=== PATIENT | female | born 1980 | race Caucasian/White ===

== ENCOUNTER → 2017-09-30 14:26 | Outpatient (CLI) | payer MEDICAID, SELFPAY ==
--- NOTE | 2017-09-30 | MM_ITS ---
MM Dig mamm BI DX w/CAD, US breast LT complete COMPARISON: None, baseline INDICATION: Palpable nodule left breast ORDERING PHYSICIAN: Simon Flores MD PATIENT AGE: 37 years TECHNIQUE: Standard images performed along with left breast ultrasound FINDINGS: There is average fibroglandular tissue. There is a 9 mm well-circumscribed nodule in the 1:00 region of the left breast corresponding to the palpable abnormality. In addition, there is a 8mm well circumscribed nodular opacity in the subcutaneous region in the left lateral periareolar region. No sonographic abdomen is detected in this area. This may only be related to overlapping fibroglandular tissue. 3 month follow-up recommended with spot compression views. The right breast is unremarkable. Left breast ultrasound: There is a 9 mm subcutaneous cystic nodule within the 1:00 region of the left breast corresponding to the palpable abnormality. This does have some low-level internal echoes but is well-circumscribed and shows enhanced through transmission of sound consistent with a complex cyst. Probably benign. IMPRESSION: Palpable abnormality at 1:00 corresponds to a complex cyst.. Probable benign asymmetric density retroareolar region laterally BI-RADS Category: 3 Benign Finding Short Term Follow-up RECOMMENDED FOLLOW-UP: 3M - 3 MONTH FOLLOWUP (A letter has been sent to the patient regarding results of the study.)
== END ==
PROVIDERS: Family Provider Internal Medicine Adolescent Medicine; PCP Obstetrics & Gynecology; Visit Provider Internal Medicine Adolescent Medicine
DX: N63.0 Unspecified lump in unspecified breast (principal)
CPT/HCPCS: 76641; 77066

== ENCOUNTER → 2018-02-07 07:50 | Outpatient (CLI) | payer MEDICAID, SELFPAY ==
--- NOTE | 2018-02-07 07:52 | CA_ITS ---
PROCEDURE: 2-D M-mode and color Doppler study INDICATIONS FOR THE TEST: Chest pain + COPD Heart Murmur Tobacco Smoking+ Palpitations Fatigue Syncope+ Edema Hypertension+Diabetes Mellitus Rheumatic Fever SOB+CABRERA Obesity Hyperlipidemia Family History HD Additional History BUBBLE STUDY PATIENT INFORMATION HEIGHT: 63 WEIGHT:186 GENDER: Female B/P:100/65 2-D/M-MODE INTERPRETATION: 2-D MEASUREMENTS OBSERVED VALUES IN CMS Right Ventricular Dimension (RVDd) 2.7 Interventricular Septum (Thickness)(IVsd) 1.1 Left Ventricular Internal Dimensions(LVIDd) 5.2 Left Ventricular Posterior Wall (Thickness)(LVPWd) 0.8 Aortic Root 3.1 Aortic Cusp Separation 2.1 Left Atrial Dimensions (LAD) 4.4 2D 1. Left atrium is mildly enlarged, left ventricle is normal size, there is mild concentric left ventricular hypertrophy, visually estimated ejection fraction 55% with no obvious regional wall motion abnormality. 2. The right atrium is mildly enlarged, right ventricle is mildly dilated with normal contractility. 3. The aortic valve is minimally thickened and fibrosed. 4. The mitral valve leaflets are minimally thickened. 5. The pulmonic valve is poorly visualized. 6. The tricuspid valve is grossly normal. 7. No significant pericardial effusion noted. DOPPLER INTERROGATION: Doppler interrogation of the aortic, mitral and tricuspid valvular presence of moderate to severe mitral and mild tricuspid regurgitation, calculated right ventricular systolic pressure is 47 mmHg consistent with the moderate pulmonary hypertension. Clinically indicated transesophageal echocardiogram is recommended to evaluate mitral valve. Grade 1 diastolic dysfunction seen with tissue Doppler evidence of raised left atrial pressure. CONCLUSION: 1. Biatrial enlargement, normal left ventricular size, mild concentric left ventricular hypertrophy, visually estimated ejection fraction 55% with no obvious regional wall motion abnormality, grade 1 diastolic dysfunction seen with tissue Doppler evidence of raised left atrial pressure. 2. Moderate to severe mitral and mild tricuspid regurgitation, if clinically indicated transesophageal echocardiogram is recommended. Calculated right ventricular systolic pressure is 47 mmHg consistent with moderate pulmonary hypertension. 3. No significant pericardial effusion noted.
== END ==
PROVIDERS: Family Provider Internal Medicine Adolescent Medicine; PCP Internal Medicine Adolescent Medicine; Visit Provider Internal Medicine
DX: R07.9 Chest pain, unspecified (principal)
CPT/HCPCS: 93017; 93306

== ENCOUNTER 2018-05-04 13:06 | Observation (INO) ==
--- NOTE | 2018-05-04 13:30 | Emergency Department Note ---
ED Disposition Clinical Impression: Mitral valve regurgitation, Tobacco use, Reactive airway disease, Acute renal insufficiency, Dehydration, Nausea vomiting and diarrhea, Medication side effect, Elevated d-dimer Disposition: Still a Patient Condition on Discharge: Fair Referrals: Simon Flores MD [Primary Care Provider] - - Critical Care Critical Care Time: No Attestation: On 05/04/18, the high probability of a clinically significant, sudden or life threatening deterioration of the following system(s) required my full and direct attention, intervention and personal management. The time I documented below is in addition to time spent performing reported procedures but includes the following listed in this critical care notation. Medical Decision Making - Barak Inquiry Pt receiving controlled substance: No Barak was queried for this patient: No Vital Signs: 05/04/18 13:07 05/04/18 13:11 05/04/18 13:30 Temperature 97.4 F L Temperature Source Oral Pulse Rate 68 Pulse Rate [Left Radial] 68 67 Respiratory Rate 14 Blood Pressure [Right Arm] 96/62 L 96/62 L Blood Pressure Mean [Right Arm] 73 73 Blood Pressure Source [Right Arm] Automatic Cuff Automatic Cuff Blood Pressure Position [Right Arm] Sitting Sitting 02 Sat by Pulse Oximetry 96 100 Oxygen Delivery Method Room Air 05/04/18 14:25 Temperature Temperature Source Pulse Rate Pulse Rate [Left Radial] 69 Respiratory Rate Blood Pressure [Right Arm] 119/52 L Blood Pressure Mean [Right Arm] 74 Blood Pressure Source [Right Arm] Automatic Cuff Blood Pressure Position [Right Arm] Sitting 02 Sat by Pulse Oximetry 100 Oxygen Delivery Method - Lab Data Lab Results 05/04/18 13:16: WBC 8.8, RBC 3.75 L, Hgb 11.2 L, Hct 34.7 L, MCV 92.7, MCH 30.0, MCHC 32.4, RDW 13.8, Plt Count 285, MPV 8.3, Neut % (Auto) 68.7, Lymph % (Auto) 23.8, [place] % (Auto) 4.2, Eos % (Auto) 2.8, Baso % (Auto) 0.5, Neut # (Auto) 6.1, Lymph # (Auto) 2.1, [place] # (Auto) 0.4, Eos # (Auto) 0.3, Baso # (Auto) 0.0 05/04/18 13:16: Sodium 134 L, Potassium 3.8, Chloride 98, Carbon Dioxide 24, Anion Gap 15.8 H, BUN 50 H, Creatinine 3.46 H, Estimated Creat Clear 31, Estimated GFR 15 L*, Est GFR ( Amer) 18 L*, Glucose 95, Calcium 9.0, Troponin I < 0.02 05/04/18 13:16: D-Dimer 1030 H* 05/04/18 13:16: B-Natriuretic Peptide 24 05/04/18 13:16: Total Bilirubin 0.3, Direct Bilirubin 0.1, Indirect Bilirubin 0.2, AST 31, ALT 51, Alkaline Phosphatase 187 H, Total Protein 8.2, Albumin 3.7 Result diagrams: 05/04/18 13:16 05/04/18 13:16 Orders (Tests/Meds): ED MEDICATIONS Generic Name Dose Route Start Last Admin Trade Name Freq PRN Reason Stop Dose Admin Albuterol/Ipratropium 3 ml 05/04/18 13:30 05/04/18 13:30 Duoneb 3ml Neb IH 06/03/18 13:29 3 ml Q1H BINU Administration Discontinued Medications Generic Name Dose Route Start Last Admin Trade Name Freq PRN Reason Stop Dose Admin Sodium Chloride 1,000 mls @ 999 mls/hr 05/04/18 13:30 Sod Chlor 0.9% 1000ml Bag IV 05/04/18 14:30 .Q1H1M BINU Methylprednisolone Sodium Succinate 125 mg 05/04/18 13:32 Solu-Medrol 125mg/2ml Vial IV 05/04/18 13:33 ONCE ONE ORDERS Category Date Time Status Chest XR -- portable [XR chest portable] Stat Exams 05/04/18 13:42 Taken - Radiology Data #1 Image(s): Chest - ECG Data Tracing #1 Normal sinus rhythm 69/min low voltage no acute findings ECG initial impression date: 05/04/18 ECG initial impression time: 13:10 Medical Decision Narrative: The patient received 1 L of IV fluid she became more arousable and she told me that she has been having vomiting and diarrhea since yesterday she vomited 5 times diarrhea 11 times. In addition she is using hydrochlorothiazide mixed with her lisinopril. She feels better. I spoke with her primary care physician Lisy labor economics teacher for Dr. Pal and she agreed to admit her for IV fluid. We discussed the elevated d-dimer that seems at this point secondary to her acute renal failure. Chest Pain HPI - General Chief Complaint: Chest Pain Stated Complaint: chest pain Time Seen by Provider: 05/04/18 13:20 Mode of Arrival: Ambulatory Limitations: No Limitations Description of Symptoms (Recalled from ER Triage Doc. by RN): to ed per pvt car pt sent by pcp to ed for eval due to chest pain, sob, hypotension starting wednesday. pt c/o lt side chest pain radiating up to neck, +sob, +diaphoresis, +nausea and vomiting also c/o diarrhea. cpta none - History of Present Illness HPI narrative: 38 years old white female smoker with a history of severe mitral regurg by her operating room registered nurse Dr. Vasquez and she is referred to [facility]. They she was seen by her primary care physician who advised her to receive IV fluids and blood work. She came to the ED complaining of 1 day history of shortness of breath and pressure type chest pain upon evaluation was found that her systolic blood pressure is 98 mmhg. she denies having fever chills productive sputum hemoptysis hematemesis with emesis melanotic stool or bleeding per rectum. MD complaint: chest pain Onset (ago): day(s) (Started yesterday.) Duration: constant Activity at onset: during rest Pain location: substernal Severity: moderate Quality: tightness Pain radiation: none Relieving factors: nothing Exacerbating factors: exertion Associated symptoms: dyspnea Risk Factors for CAD: Hypertension, Smoking - Related Data Home Medications Medication Instructions Recorded Confirmed albuterol sulfate HFA 90 2 puff INHALATION QID 02/01/18 05/04/18 mcg/actuation aerosol inhaler bupropion HCl XL 300 mg 24 hr 300 mg PO QAM 02/01/18 05/04/18 tablet, extended release citalopram 40 mg tablet 40 mg PO DAILY tab 02/01/18 05/04/18 estradiol 2 mg tablet 2 mg PO DAILY tab 02/01/18 05/04/18 fluticasone 50 mcg/actuation nasal 1 spray INTRANASAL BID PRN 02/01/18 05/04/18 spray,suspension hydroxyzine HCl 25 mg tablet 25 mg PO QID PRN 02/01/18 05/04/18 lisinopril 20 mg tablet 20 mg PO DAILY tab 02/01/18 05/04/18 metoprolol succinate ER 50 mg 50 mg PO DAILY tab 02/01/18 05/04/18 tablet,extended release 24 hr omeprazole 20 mg capsule,delayed 20 mg PO DAILY cap 02/01/18 05/04/18 release lisinopril 20 1 tab PO DAILY tab 02/25/18 05/04/18 mg-hydrochlorothiazide 25 mg tablet Allergies Allergy/AdvReac Type Severity Reaction Status Date / Time meperidine Allergy Severe S-SWELLS-OR Verified 04/08/18 10:26 AL/THROAT Penicillins Allergy Severe S-SWELLS-OR Verified 04/08/18 10:26 AL/THROAT [facility] History I have reviewed the patient's past medical history: Yes Medical History: Reports:: Anxiety, Depression, Gastroesophageal Reflux Disease(GERD), Hypertension Denies:: Cancer, Diabetes Mellitus Type 1, Diabetes Mellitus Type 2, Internal Pacemaker, MRSA, Seizures Other Surgeries: Yes: Cholecystectomy, Hysterectomy-Total. No: Pacemaker Amputation: No Fractures: No - Social History Smoking Status: Current every day smoker Tobacco Type: cigarettes # Packs/Day (cigarettes): 1 Alcohol Intake: never Alcohol Intake Frequency:: other Substance Use Type: denies use Occupational Status: employed Housing: house - Psychiatric History Expresses thoughts of harming self/others: None Suicide Plan Description: No Plan Pschychiatric History:: Reports:: Anxiety, Depression Family Hx:: Stroke, Diabetes Comment: Maternal Grandmother-enlarged heart. Sister-Heart murmur ROS Obtained: Yes All systems reviewed & no additional complaints Physical Exam - General General appearance: alert, in no apparent distress - Head Head exam: atraumatic, normocephalic, normal inspection - Eye Eye exam: Present: normal appearance, PERRL, EOMI. Absent: scleral icterus, nystagmus - ENT ENT exam: Present: normal exam, normal oropharynx, mucous membranes moist, TM's normal bilaterally, normal external ear exam - Neck Neck exam: Present: normal inspection, full ROM, trachea midline. Absent: meningismus, lymphadenopathy - Chest Chest inspection: Present: normal inspection, symmetric chest wall rise. Absent: tenderness - Respiratory Respiratory exam: Present: normal lung sounds bilaterally, wheezes, other (Harsh bronchial breathing. ). Absent: respiratory distress - Cardiovascular Cardiovascular exam: Present: regular rate, normal rhythm. Absent: JVD - Abdominal Exam Abdominal exam: Present: soft, normal bowel sounds. Absent: distention, tend erness, guarding, rebound, rigidity - External exam: Present: normal external exam - Extremities Exam Extremities exam: Present: normal inspection, full ROM, normal capillary refill. Absent: tenderness, pedal edema, joint swelling, calf tenderness - Back Exam Back exam: Present: normal inspection. Absent: tenderness, CVA tenderness (R), CVA tenderness (L), paraspinal tenderness, vertebral tenderness - Neurological Exam Neurological exam: Present: alert, oriented X3, CN II-XII intact, motor sensory deficit, reflexes normal - Psychiatric Psychiatric exam: Present: normal affect, normal mood, anxious - Skin Skin exam: Present: warm, dry, intact, normal color - Lymphatic Lymphatic Findings: no adenopathy
[2018-05-04 13:39] LABS: Basophils % 0.5 % (0.1-2.0); Eosinophils # 0.3 K/mm3 (0.0-0.4); Eosinophils % 2.8 % (0.1-12.0); Hematocrit 34.7 % (37.0-47.0); Hemoglobin 11.2 g/dL (12.2-16.2); Lymphocytes # 2.1 K/mm3 (0.7-4.5); Lymphocytes % 23.8 K/mm3 (10-50); Mean Corpuscular HGB Conc 32.4 g/dL (31.8-35.4); Mean Corpuscular Volume 92.7 fl (81-99); Mean Platelet Volume 8.3 fl (7.4-10.4); Monocytes # 0.4 K/mm3 (0.1-1.0); Monocytes % 4.2 % (1.7-9.3); Neutrophils # 6.1 K/mm3 (1.8-7.8); Neutrophils % 68.7 % (37.0-80.0); Platelet Count 285 K/mm3 (142-424); Red Blood Count 3.75 M/mm3 (4.20-5.40); Red Cell Distribution Width 13.8 % (11.5-17.5); White Blood Count 8.8 K/mm3 (4.8-10.8)
[2018-05-04 13:45] LABS: Anion Gap 15.8 mEq/L (5-15); Blood Urea Nitrogen 50 mg/dL (7-18); Carbon Dioxide 24 mmol/L (21.0-32.0); Chloride 98 mmol/L (98-107); Glucose 95 mg/dL (74-106); Potassium 3.8 mmoL/L (3.5-5.1); Sodium 134 mmol/L (136-145)
[2018-05-04 14:02] LABS: Albumin Level 3.7 gm/dL (3.4-5.0); Bilirubin,Direct 0.1 mg/dL (0.0-0.2); Bilirubin,Indirect 0.2 mg/dL (0.0-0.9); Bilirubin,Total 0.3 mg/dL (0.2-1.0); Total Protein,Serum 8.2 gm/dL (6.4-8.2)
--- NOTE | 2018-05-04 15:08 | History & Physical Report ---
*Admission Date: 05/04/18 *Chief complaint: Fatigue and dizziness *History of present illness: Ms. Carvalho is a 38yo F with cardiac Hx of HTN, ASD secundum, MV prolapse and depression who presented to clinic with dizziness and fatigue for ~1 week. She reported that she had been havign gastroenteritis Sx with watery diarrhea 4-6 x a day for the past 2-3 days. Her fatigue was such that she slept yesterday and did not take her medications due to being too tired. Initial Assessment in clinic positive for hypotension, though patient walked to clinic, and fatigue. 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 Denied Syncope, confusion, changes in vision, referred pains, edema, dysuria, anuria, MATA, SOA. EKG was obtained in clinic with 1st degree heart block and prolonged QT. Sent to [facility] for fluids and further work-up including labs. On her way to [facility] she became more fatigued and felt acutely worse. She went to the ER instead and was diagnosed with acute renal failure adn hyponatremic hypovolemia. Admitted to medicine for further management. [facility] History I have reviewed the patient's past medical history: Yes Medical History: Reports:: Anxiety, Depression, Gastroesophageal Reflux Disease(GERD), Hypertension Denies:: Cancer, Diabetes Mellitus Type 1, Diabetes Mellitus Type 2, Internal Pacemaker, MRSA, Seizures Other Surgeries: Yes: Cholecystectomy, Hysterectomy-Total. No: Pacemaker Amputation: No Fractures: No - *Social History Smoking Status: Current every day smoker Tobacco Type: cigarettes # Packs/Day (cigarettes): 1 Alcohol Intake: never Alcohol Intake Frequency:: other Substance Use Type: denies use Occupational Status: employed Housing: house - Psychiatric History Expresses thoughts of harming self/others: None Suicide Plan Description: No Plan Pschychiatric History:: Reports:: Anxiety, Depression *Family Hx:: Stroke, Diabetes Review of Systems - Review of Systems Review of systems:: pertinent systems reviewed and negative unless documented below Meds Home Medications Medication Instructions Recorded Confirmed Type albuterol sulfate HFA 90 2 puff INHALATION QID 02/01/18 05/04/18 History mcg/actuation aerosol inhaler bupropion HCl XL 300 mg 24 hr 300 mg PO QAM 02/01/18 05/04/18 History tablet, extended release citalopram 40 mg tablet 40 mg PO DAILY tab 02/01/18 05/04/18 History estradiol 2 mg tablet 2 mg PO DAILY tab 02/01/18 05/04/18 History fluticasone 50 mcg/actuation nasal 1 spray INTRANASAL BID PRN 02/01/18 05/04/18 History spray,suspension hydroxyzine HCl 25 mg tablet 25 mg PO QID PRN 02/01/18 05/04/18 History lisinopril 20 mg tablet 20 mg PO DAILY tab 02/01/18 05/04/18 History metoprolol succinate ER 50 mg 50 mg PO DAILY tab 02/01/18 05/04/18 History tablet,extended release 24 hr omeprazole 20 mg capsule,delayed 20 mg PO DAILY cap 02/01/18 05/04/18 History release lisinopril 20 1 tab PO DAILY tab 02/25/18 05/04/18 History mg-hydrochlorothiazide 25 mg tablet Allergies Allergy/AdvReac Type Severity Reaction Status Date / Time meperidine Allergy Severe S-SWELLS-OR Verified 04/08/18 10:26 AL/THROAT Penicillins Allergy Severe S-SWELLS-OR Verified 04/08/18 10:26 AL/THROAT Exam Vital signs and Labs for Last 24 Hours: Temp Pulse Resp BP Pulse Ox 97.4 F L 73 14 128/70 99 05/04/18 13:11 05/04/18 14:30 05/04/18 13:11 05/04/18 14:30 05/04/18 14:30 Laboratory Results - last 24 hr 05/04/18 13:16: WBC 8.8, RBC 3.75 L, Hgb 11.2 L, Hct 34.7 L, MCV 92.7, MCH 30.0, MCHC 32.4, RDW 13.8, Plt Count 285, MPV 8.3, Neut % (Auto) 68.7, Lymph % (Auto) 23.8, [place] % (Auto) 4.2, Eos % (Auto) 2.8, Baso % (Auto) 0.5, Neut # (Auto) 6.1, Lymph # (Auto) 2.1, [place] # (Auto) 0.4, Eos # (Auto) 0.3, Baso # (Auto) 0.0 05/04/18 13:16: Sodium 134 L, Potassium 3.8, Chloride 98, Carbon Dioxide 24, Anion Gap 15.8 H, BUN 50 H, Creatinine 3.46 H, Estimated Creat Clear 31, Estimated GFR 15 L*, Est GFR ( Amer) 18 L*, Glucose 95, Calcium 9.0, Troponin I < 0.02 05/04/18 13:16: D-Dimer 1030 H* 05/04/18 13:16: B-Natriuretic Peptide 24 05/04/18 13:16: Total Bilirubin 0.3, Direct Bilirubin 0.1, Indirect Bilirubin 0.2, AST 31, ALT 51, Alkaline Phosphatase 187 H, Total Protein 8.2, Albumin 3.7 I & O for Last 24 hours: Intake & Output 05/01/18 05/02/18 05/03/18 05/04/18 23:59 23:59 23:59 23:59 Weight 88.451 kg - Constitutional mild distress, obese Comments: tired - *Routine HEENT Exam Head: Present: normocephalic, atraumatic Eye: Present: PERRL ENT: Present: mucous membranes dry - *Routine Neck Exam Present: supple. Absent: JVD, lymphadenopathy - *Routine Respiratory Exam Present: CTA bilaterally. Absent: accessory muscle use, prolonged expiratory phase, rales, wheezes, crackles - *Routine Cardiovascular Exam Present: RRR, Normal S1. Absent: irregularly irregular - *Routine Abdominal Exam Present: soft Comments: hyperactive bowel sounds, non-focal tenderness. - *Routine Rectal Exam Patient deferred: visual exam - *Routine Exam Patient deferred: external exam - *Routine Extremities Exam Absent: cyanosis, clubbing, edema - *Routine Skin Exam Present: intact. Absent: cyanosis, erythema - *Routine Neurological Exam Present: alert, oriented X3, CN II-XII intact. Absent: altered mental status Assessment and Plan (1) Prolonged QT interval Current visit: Yes Status: Acute Category: Medical Code(s): R94.31 - Abnormal electrocardiogram [ECG] [EKG] suspect due to metabolite effect form QT prolonging meds she takes daily (citalopram and bupropion) - avoid QT prolonging meds - monitor for improvement with volume and electrolyte repletion (2) Hyponatremia with extracellular fluid depletion Current visit: Yes Status: Acute Category: Medical Code(s): E87.1 - Hypo- osmolality and hyponatremia Due to dehydration - monitor for improvement with IV rehydration (3) Hypotension Current visit: Yes Status: Acute Qualifiers: Hypotension type: hypotension due to hypovolemia Qualified Code(s): I95.89 - Other hypotension; E86.1 - Hypovolemia Category: Medical Code(s): I95.9 - Hypotension, unspecified acute in setting of dehydration from Gastroenteritis and ACEi use. - aggressive volume repletion - hold ACEi in setting of HypoTN and MACHELLE (4) Acute renal insufficiency Current visit: Yes Status: Acute Category: Medical Code(s): N28.9 - Disorder of kidney and ureter, unspecified due to volume depletion and ACEi - avoid nephrotoxics - repeat BMP q12 - BL 0.9-1 as of march 2018 - MIVF @150/hr (5) Dehydration Current visit: Yes Status: Acute Category: Medical Code(s): E86.0 - Dehydration (6) Mitral valve regurgitation Current visit: Yes Status: Acute Qualifiers: Category: Medical Code(s): I34.0 - Nonrheumatic mitral (valve) insufficiency (7) Nausea vomiting and diarrhea Current visit: Yes Status: Acute Category: Medical Code(s): R11.2 - Nausea with vomiting, unspecified; R19.7 - Diarrhea, unspecified (8) Dizziness Current visit: No Status: Acute Category: Medical Code(s): R42 - Dizziness and giddiness
[2018-05-04 19:44] LABS: Anion Gap 11.8 mEq/L (5-15); Potassium 3.8 mmoL/L (3.5-5.1)
[2018-05-05 06:18] LABS: Albumin/Globulin Ratio 0.8 (1.1-1.8); Anion Gap 11.2 mEq/L (5-15); Bilirubin,Total 0.1 mg/dL (0.2-1.0); Calcium 8.7 mg/dL (8.5-10.1); Potassium 4.2 mmoL/L (3.5-5.1)
[2018-05-05 06:25] LABS: Basophils % 0.1 % (0.1-2.0); Eosinophils % 0.2 % (0.1-12.0); Hematocrit 29.2 % (37.0-47.0); Lymphocytes # 0.9 K/mm3 (0.7-4.5); Lymphocytes % 18.5 K/mm3 (10-50); Mean Corpuscular HGB Conc 33.2 g/dL (31.8-35.4); Mean Corpuscular Hemoglobin 30.6 pg (27.0-31.2); Mean Corpuscular Volume 92.2 fl (81-99); Mean Platelet Volume 8.6 fl (7.4-10.4); Monocytes # 0.2 K/mm3 (0.1-1.0); Monocytes % 4.6 % (1.7-9.3); Neutrophils # 3.6 K/mm3 (1.8-7.8); Neutrophils % 76.6 % (37.0-80.0); Platelet Count 272 K/mm3 (142-424); Red Blood Count 3.17 M/mm3 (4.20-5.40); White Blood Count 4.7 K/mm3 (4.8-10.8)
[2018-05-05 06:33] LABS: Hemoglobin 9.7 g/dL (12.2-16.2)
--- NOTE | 2018-05-05 08:34 | Discharge Summary ---
General - General Admission date:: 05/04/18 Discharge date: 05/05/18 HPI HPI: Ms. Carvalho is a 38yo F with cardiac Hx of HTN, ASD secundum, MV prolapse and depression who presented to clinic with dizziness and fatigue for ~1 week. She reported that she had been havign gastroenteritis Sx with watery diarrhea 4-6 x a day for the past 2-3 days. Her fatigue was such that she slept yesterday and did not take her medications due to being too tired. Initial Assessment in clinic positive for hypotension, though patient walked to clinic, and fatigue. 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 Denied Syncope, confusion, changes in vision, referred pains, edema, dysuria, anuria, MATA, SOA. EKG was obtained in clinic with 1st degree heart block and prolonged QT. Sent to [facility] for fluids and further work-up including labs. On her way to [facility] she became more fatigued and felt acutely worse. She went to the ER instead and was diagnosed with acute renal failure adn hyponatremic hypovolemia. Admitted to medicine for further management. Hospital Course Hospital Course: Patient was admitted for IV hydration. She was given IVF boluses x2 and started on LR infusion. Labs were closely monitored and creatinine has trended downward, noted at 1.55 this morning. Blood pressure has been stable without her home antihypertensives. QT was noted to be prolonged in the ED, her SSRI and wellbutrin were held. Repeat EKG this morning shows normal QT interval. She is tolerating oral intake well with no nausea, vomiting or diarrhea. She feels significantly better and is ready to go home. Discharge home. Hold lisinopril and HCTZ. FU with Dr. Boykin in our [place] office on Wednesday. Repeat CMP at that time. Objective Vital signs: Temp Pulse Resp BP Pulse Ox 97.9 F 92 H 18 110/70 93 L 05/05/18 08:00 05/05/18 08:00 05/05/18 08:00 05/05/18 08:00 05/05/18 08:00 Narrative: Alert and oriented x3. Rate and rhythm regular. + murmur. Lung sounds clear and equal. Abdomen soft and nontender. No neuro deficits Results Labs on day of discharge: Labs from last 24 hours 05/05/18 05/05/18 05/05/18 05:45 05:45 05:45 WBC 4.7 L D RBC 3.17 L Hgb 9.7 L D Hct 29.2 L MCV 92.2 MCH 30.6 MCHC 33.2 RDW 14.0 Plt Count 272 MPV 8.6 Neut % (Auto) 76.6 Lymph % (Auto) 18.5 Bacon % (Auto) 4.6 Eos % (Auto) 0.2 Baso % (Auto) 0.1 Neut # (Auto) 3.6 Lymph # (Auto) 0.9 Bacon # (Auto) 0.2 Eos # (Auto) 0.0 Baso # (Auto) 0.0 D-Dimer Sodium 137 Potassium 4.2 Chloride 105 Carbon Dioxide 25 Anion Gap 11.2 BUN 29 H D Creatinine 1.55 H D Estimated Creat Clear 69 Estimated GFR 38 L Est GFR ( Amer) 46 L D Glucose 147 H Calcium 8.7 Magnesium 2.0 Total Bilirubin 0.1 L Direct Bilirubin Indirect Bilirubin AST 20 D ALT 38 D Alkaline Phosphatase 152 H Troponin I B-Natriuretic Peptide Total Protein 7.0 Albumin 3.0 L D Globulin 4.0 H Albumin/Globulin Ratio 0.8 L 05/04/18 05/04/18 05/04/18 20:25 18:03 18:03 WBC RBC Hgb Hct MCV MCH MCHC RDW Plt Count MPV Neut % (Auto) Lymph % (Auto) Bacon % (Auto) Eos % (Auto) Baso % (Auto) Neut # (Auto) Lymph # (Auto) Bacon # (Auto) Eos # (Auto) Baso # (Auto) D-Dimer Sodium 136 Potassium 3.8 Chloride 103 Carbon Dioxide 25 Anion Gap 11.8 BUN 42 H Creatinine 2.41 H D Estimated Creat Clear 44 Estimated GFR 23 L Est GFR ( Amer) 27 L D Glucose 157 H D Calcium 8.0 L D Magnesium Total Bilirubin Direct Bilirubin Indirect Bilirubin AST ALT Alkaline Phosphatase Troponin I < 0.02 < 0.02 B-Natriuretic Peptide Total Protein Albumin Globulin Albumin/Globulin Ratio 05/04/18 05/04/18 05/04/18 13:16 13:16 13:16 WBC RBC Hgb Hct MCV MCH MCHC RDW Plt Count MPV Neut % (Auto) Lymph % (Auto) Bacon % (Auto) Eos % (Auto) Baso % (Auto) Neut # (Auto) Lymph # (Auto) Bacon # (Auto) Eos # (Auto) Baso # (Auto) D-Dimer 1030 H* Sodium Potassium Chloride Carbon Dioxide Anion Gap BUN Creatinine Estimated Creat Clear Estimated GFR Est GFR ( Amer) Glucose Calcium Magnesium Total Bilirubin 0.3 Direct Bilirubin 0.1 Indirect Bilirubin 0.2 AST 31 ALT 51 Alkaline Phosphatase 187 H Troponin I B-Natriuretic Peptide 24 Total Protein 8.2 Albumin 3.7 Globulin Albumin/Globulin Ratio 05/04/18 05/04/18 13:16 13:16 WBC 8.8 RBC 3.75 L Hgb 11.2 L Hct 34.7 L MCV 92.7 MCH 30.0 MCHC 32.4 RDW 13.8 Plt Count 285 MPV 8.3 Neut % (Auto) 68.7 Lymph % (Auto) 23.8 Bacon % (Auto) 4.2 Eos % (Auto) 2.8 Baso % (Auto) 0.5 Neut # (Auto) 6.1 Lymph # (Auto) 2.1 Bacon # (Auto) 0.4 Eos # (Auto) 0.3 Baso # (Auto) 0.0 D-Dimer Sodium 134 L Potassium 3.8 Chloride 98 Carbon Dioxide 24 Anion Gap 15.8 H BUN 50 H Creatinine 3.46 H Estimated Creat Clear 31 Estimated GFR 15 L* Est GFR ( Amer) 18 L* Glucose 95 Calcium 9.0 Magnesium Total Bilirubin Direct Bilirubin Indirect Bilirubin AST ALT Alkaline Phosphatase Troponin I < 0.02 B-Natriuretic Peptide Total Protein Albumin Globulin Albumin/Globulin Ratio DS: Diagnosis - Discharge Diagnosis (1) Prolonged QT interval Status: Resolved (2) Hyponatremia with extracellular fluid depletion Status: Resolved (3) Hypotension Status: Resolved (4) Acute renal insufficiency Status: Acute (5) Dehydration Status: Resolved (6) Mitral valve regurgitation Status: Acute (7) Nausea vomiting and diarrhea Status: Resolved (8) Dizziness Status: Resolved Discharge Plan - Patient Discharge Instructions ACTIVITY: Continue current activity DIET: continue same diet - Follow up Plan Follow up with: Jeet Boykin MD [Staff Physician] - 05/09/18 Disposition: Home, Self-Halfway Medications: Home Medications Medication Instructions Recorded Confirmed Type albuterol sulfate HFA 90 2 puff INHALATION QID 02/01/18 05/04/18 History mcg/actuation aerosol inhaler bupropion HCl XL 300 mg 24 hr 300 mg PO QAM 02/01/18 05/04/18 History tablet, extended release citalopram 40 mg tablet 40 mg PO DAILY tab 02/01/18 05/04/18 History estradiol 2 mg tablet 2 mg PO DAILY tab 02/01/18 05/04/18 History fluticasone 50 mcg/actuation nasal 1 spray INTRANASAL BID PRN 02/01/18 05/04/18 History spray,suspension hydroxyzine HCl 25 mg tablet 25 mg PO QID PRN 02/01/18 05/04/18 History lisinopril 20 mg tablet 20 mg PO DAILY tab 02/01/18 05/04/18 History metoprolol succinate ER 50 mg 50 mg PO DAILY tab 02/01/18 05/04/18 History tablet,extended release 24 hr omeprazole 20 mg capsule,delayed 20 mg PO DAILY cap 02/01/18 05/04/18 History release lisinopril 20 1 tab PO DAILY tab 02/25/18 05/04/18 History mg-hydrochlorothiazide 25 mg tablet Prescriptions/Medication Reconciliation: Continue albuterol sulfate HFA 90 mcg/actuation aerosol inhaler 2 puff INHALATION QID omeprazole 20 mg capsule,delayed release 20 mg PO DAILY cap hydroxyzine HCl 25 mg tablet 25 mg PO QID PRN PRN Reason: unknown estradiol 2 mg tablet 2 mg PO DAILY tab metoprolol succinate ER 50 mg tablet,extended release 24 hr 50 mg PO DAILY tab citalopram 40 mg tablet 40 mg PO DAILY tab fluticasone 50 mcg/actuation nasal spray,suspension 1 spray INTRANASAL BID PRN PRN Reason: unknown bupropion HCl XL 300 mg 24 hr tablet, extended release 300 mg PO QAM Discontinued lisinopril 20 mg tablet 20 mg PO DAILY tab lisinopril 20 mg-hydrochlorothiazide 25 mg tablet 1 tab PO DAILY tab
== END 2018-05-05 10:10 | disposition home or self-care (01) ==
LOC: 2ND 13:06 → ER 13:06 → 2ND 15:54
PROVIDERS: ADMIT Internal Medicine Adolescent Medicine; ATTEND Internal Medicine Adolescent Medicine

== ENCOUNTER → 2018-08-02 11:51 | Outpatient (CLI) | payer MEDICAID, SELFPAY ==
--- NOTE | 2018-08-02 11:54 | CA_ITS ---
PROCEDURE: 2-D M-mode and color Doppler study INDICATIONS FOR THE TEST: Chest pain COPD Heart Murmur Tobacco Smoking Palpitations FatigueX Syncope Edema Hypertension Diabetes Mellitus Rheumatic Fever SOBXDOE ObesityXHyperlipidemia Family History HD Additional History MVR [facility] 07/12,PHTN PATIENT INFORMATION HEIGHT: 64 WEIGHT:201 GENDER: Female B/P:121/74 2-D/M-MODE INTERPRETATION: 2-D MEASUREMENTS OBSERVED VALUES IN CMS Right Ventricular Dimension (RVDd) 3.6 Interventricular Septum (Thickness)(IVsd) .9 Left Ventricular Internal Dimensions(LVIDd) 4.3 Left Ventricular Posterior Wall (Thickness)(LVPWd) .9 Aortic Root 3.3 Aortic Cusp Separation 1.8 Left Atrial Dimensions (LAD) 3.7 2D 1. Left atrium is mildly enlarged, left ventricle is normal size, 55% , there is abnormal septal motion. 2. The right atrium and right ventricle are moderately enlarged, contractility of the right ventricle is mildly reduced. 3. The aortic valve is minimally thickened and fibrosed. 4. There is a mechanical valve noted in the mitral position, the mitral valve is well seated. 5. The tricuspid valve is minimally thickened. 6. Pulmonic valve is poorly visualized. 7. No significant pericardial effusion noted. DOPPLER INTERROGATION: Doppler interrogation of the aortic, mitral and tricuspid valvular presence of moderate tricuspid regurgitation, calculated right ventricular systolic pressure is 47 mmHg, the gradient across the prosthetic valve is in acceptable range CONCLUSION: 1. Normal left ventricular size visually estimated ejection fraction of 55% with no regional wall motion abnormality. 2. Normal functioning mechanical prosthetic valve in the mitral position. 3. Moderately enlarged right ventricle with mild reduced contractility. 4. Moderate tricuspid regurgitation, calculated right ventricular systolic pressure is 47 mmHg. 5. No significant pericardial effusion noted.
[2018-08-02 13:31] LABS: Anion Gap 14.1 mEq/L (5-15); Blood Urea Nitrogen 8 mg/dL (7-18); Carbon Dioxide 28 mmol/L (21.0-32.0); Chloride 101 mmol/L (98-107); Creatinine,Serum 1.06 mg/dL (0.55-1.02); Estimated Glomerular Filt Rate 58 ml/min (>60); GFR (African American) 71 ML/MIN (>60); Glucose 88 mg/dL (74-106); Potassium 4.1 mmoL/L (3.5-5.1); Sodium 139 mmol/L (136-145)
== END ==
PROVIDERS: PCP Internal Medicine Adolescent Medicine; Visit Provider Internal Medicine Cardiovascular Disease
DX: Z95.2 Presence of prosthetic heart valve (principal); I10 Essential (primary) hypertension
CPT/HCPCS: 36415; 80048; 93306

== ENCOUNTER → 2018-08-26 10:10 | Outpatient (CLI) | payer MEDICAID, SELFPAY ==
[2018-08-26 12:32] LABS: Prothrombin Time 52.3 seconds (9.4-11.8)
[2018-08-26 12:33] LABS: INR 5.33 (0.9-1.1)
== END ==
PROVIDERS: Visit Provider Internal Medicine Cardiovascular Disease
DX: Z51.81 Encounter for therapeutic drug level monitoring (principal); Z79.01 Long term (current) use of anticoagulants; R06.09 Other forms of dyspnea; R42 Dizziness and giddiness; I07.1 Rheumatic tricuspid insufficiency; I10 Essential (primary) hypertension; I34.0 Nonrheumatic mitral (valve) insufficiency; R93.1 Abnormal findings on diagnostic imaging of heart and coronary circulation; Z95.2 Presence of prosthetic heart valve; F17.200 Nicotine dependence, unspecified, uncomplicated
CPT/HCPCS: 36415; 85610

== ENCOUNTER → 2018-08-30 10:32 | Outpatient (CLI) | payer MEDICAID, SELFPAY ==
--- NOTE | 2018-08-30 12:11 | HMH.PHAINT ---
PATIENT SEEN IN ER ON 08/26 AND INR WAS 5.33. CALLED PATIENT AND INSTRUCTED HER TO HOLD DOSE ON 08/26 AND THE 3.75 MG ON WED/WED/WED WITH FOLLOW UP ON 08/30. PATIENT HAD BEEN TAKING WARFARIN 7.5 MG DAILY. PATIENT MISSED APPOINTMENTS ON 07/20/19 AND 08/18/18. DISCUSSED WITH PATIENT THE IMPORTANCE OF KEEPING APPOINTMENTS AND GETTING LEVELS CHECKS.
[2018-08-30 13:31] LABS: INR 1.18 (0.9-1.1); Prothrombin Time 12.1 seconds (9.4-11.8)
--- NOTE | 2018-08-30 15:38 | HMH.PHAINT ---
ACC-- PATIENT INR 1.18 TODAY VIA VENIPUNCTURE. PATIENT HELD DOSE ON WEDNESDAY AND TOOK 1/2 DOSE (3.75 MG) DAILY ON WED/WED/WED. DISCUSSED WITH DAGMAR MARIE APRN IN DR. JAMES'S OFFICE. ORDERING LOVENOX 90 MG BID UNTIL FOLLOW UP ON WEDNESDAY IN ACC.
== END ==
PROVIDERS: Internal Medicine Cardiovascular Disease; PCP Internal Medicine Adolescent Medicine; Visit Provider Internal Medicine Adolescent Medicine
DX: Z51.81 Encounter for therapeutic drug level monitoring (principal); Z79.01 Long term (current) use of anticoagulants
CPT/HCPCS: 36415; 85610

== ENCOUNTER 2018-09-02 10:13 | Outpatient (CLI) | payer MEDICAID, SELFPAY | END 2018-09-02 16:40 | disposition home or self-care (01) | LOC: ACC 10:14 | PROVIDERS: PCP Internal Medicine Adolescent Medicine; Visit Provider Internal Medicine | DX: Z51.81 Encounter for therapeutic drug level monitoring (principal); Z79.01 Long term (current) use of anticoagulants | CPT/HCPCS: 85610; 99211; G0463 ==

== ENCOUNTER → 2019-08-01 12:55 | Outpatient (CLI) | payer OTHER, SELFPAY ==
--- NOTE | 2019-08-01 12:55 | CA_ITS ---
APPROVED REPORT Record Filing Clerk: Gisell Pfeiffer RVT Laterality: Bilateral Study Quality: Good Indications: dizziness, numbness Risk Factors Hypertension: Smoking Hx mitral valve replacement Medications Coumadin Doppler Spectral Velocity Analysis ECA (R) 67.80/21.40 cm/s ECA (L) 74.30/21.20 cm/s dICA (R) 45.90/25.90 cm/s dICA (L) 44.20/24.20 cm/s Mervat (R) 56.60/29.60 cm/s Mervat (L) 48.90/21.80 cm/s pICA (R) 43.90/20.80 cm/s pICA (L) 57.20/23.00 cm/s dCCA (R) 54.70/20.50 cm/s dCCA (L) 47.00/21.30 cm/s pCCA (R) 64.20/19.20 cm/s pCCA (L) 45.40/18.90 cm/s Vert (R) 33.70/11.70 cm/s Vert (L) 30.70/11.80 cm/s ICA/CCA 1.03 ICA/CCA 1.22 Findings Study suggests no evidence of stenosis in the bilateral internal cartoid arteries. Antegrade flow seen bilateral vertebral arteries. Conclusion No increased velocities to suggest hemodynamically significant stenosis in either internal carotid artery. Electronically signed by : Rubin Terry MD 08/01/2019 16:15:41
== END ==
PROVIDERS: PCP Internal Medicine Adolescent Medicine; Visit Provider Urology
DX: R42 Dizziness and giddiness (principal); R20.0 Anesthesia of skin
CPT/HCPCS: 93880

== ENCOUNTER → 2019-08-11 12:50 | Outpatient (CLI) | payer OTHER, SELFPAY | PROVIDERS: PCP Internal Medicine Adolescent Medicine; Visit Provider Urology | DX: G47.33 Obstructive sleep apnea (adult) (pediatric) (principal); R06.02 Shortness of breath; R06.00 Dyspnea, unspecified; R06.83 Snoring | CPT/HCPCS: 95806 ==

== ENCOUNTER → 2020-03-22 11:00 | Outpatient (CLI) | payer OTHER, SELFPAY ==
[2020-03-22 11:35] LABS: Basophils # 0.1 K/mm3 (0-0.2); Basophils % 0.5 % (0.1-2.0); Eosinophils # 0.3 K/mm3 (0.0-0.4); Eosinophils % 3.2 % (0.1-12.0); Hematocrit 30.1 % (37.0-47.0); Hemoglobin 9.8 g/dL (12.2-16.2); Lymphocytes # 2.2 K/mm3 (0.7-4.5); Mean Corpuscular HGB Conc 32.6 g/dL (31.8-35.4); Mean Corpuscular Hemoglobin 29.5 pg (27.0-31.2); Mean Corpuscular Volume 90.6 fl (81-99); Mean Platelet Volume 7.8 fl (7.4-10.4); Monocytes # 0.4 K/mm3 (0.1-1.0); Neutrophils # 6.6 K/mm3 (1.8-7.8); Neutrophils % 69.3 % (37.0-80.0); Platelet Count 466 K/mm3 (142-424); Red Blood Count 3.32 M/mm3 (4.20-5.40); Red Cell Distribution Width 16.4 % (11.5-17.5); White Blood Count 9.5 K/mm3 (4.8-10.8)
[2020-03-22 11:37] LABS: MANUAL DIFFERENTIAL MANUAL DIFFERENTIAL (MANUAL DIFF)
[2020-03-22 11:44] LABS: INR 1.04 (0.9-1.1); Prothrombin Time 10.7 seconds (9.4-11.8)
[2020-03-22 11:56] LABS: Eosinophils % 5 % (0-3); Lymphocytes % 25 % (10-50); Monocytes % 2 % (2-9); Neutrophils % 68 % (42-76); Poikilocytosis 1+; Stomatocytes 2+; Total Cells Counted 100
[2020-03-22 11:57] LABS: Anisocytosis 1+; Giant Platelets 1+; Platelet Estimate Moderate I
[2020-03-22 12:17] LABS: Alanine Aminotransferase 23 U/L (12-78); Albumin Level 4.2 g/dl (3.5-5.0); Alkaline Phosphatase 112 U/L (38-126); Anion Gap 14.2 mEq/L (5-15); Aspartate Amino Transferase 33 U/L (14-36); Bilirubin,Direct 0.2 mg/dl (0.0-0.4); Bilirubin,Indirect 0.2 mg/dL (0.0-0.9); Bilirubin,Total 0.4 mg/dl (0.2-1.3); Bilirubin,Unconjugated 0.3 mg/dL (0.0-1.1); Blood Urea Nitrogen 27 mg/dl (7-17); Calcium 9.8 mg/dl (8.4-10.2); Carbon Dioxide 31 mmol/L (22.0-30.0); Chloride 96 mmol/L (98-107); Estimated Glomerular Filt Rate 50 ml/min (>60); GFR (African American) 61 ML/MIN (>60); Glucose 99 mg/dl (74-100); Lactate Dehydrogenase 323 U/L (313-618); Potassium 4.2 mmoL/L (3.5-5.1); Sodium 137 mmol/L (136-145); Total Protein,Serum 8.1 g/dl (6.3-8.2)
[2020-03-22 12:26] LABS: NT Pro Brain Natriuretic Pep. 201 pg/mL (0-125)
== END ==
PROVIDERS: PCP Internal Medicine Adolescent Medicine; Visit Provider Internal Medicine Cardiovascular Disease
DX: R42 Dizziness and giddiness (principal); R06.09 Other forms of dyspnea; R93.1 Abnormal findings on diagnostic imaging of heart and coronary circulation; I07.1 Rheumatic tricuspid insufficiency; I10 Essential (primary) hypertension; I34.0 Nonrheumatic mitral (valve) insufficiency; F17.200 Nicotine dependence, unspecified, uncomplicated; Z95.2 Presence of prosthetic heart valve
CPT/HCPCS: 36415; 80048; 80076; 83615; 83880; 85007; 85025; 85610

== ENCOUNTER 2020-03-25 10:48 | Outpatient (CLI) | payer OTHER, SELFPAY ==
[2020-03-25 11:54] LABS: PHA INR Fingerstick 2.2 (0.9-1.1)
--- NOTE | 2020-05-29 10:45 | HMH.PHAINT ---
ACC-PATIENT SCHEDULED FOR COLONOSCOPY ON 05/31/20. PATIENT DID NOT CALL ABOUT BRIDGING WITH LOVENOX. [facility] OFFICE WAS CONTACTED ABOUT THIS AFTER PREOP ORDER WAS RECEIVED IN PHARMACY. CALLED PATIENT SEVERAL TIMES BEFORE REACHING. INSTRUCTED PATIENT TO CONTACT [facility] MD DAVIS AND DR. BAUTISTA'S OFFICE WELL. CALLED AGAIN THIS AM ABOUT RECHECK OF INR AFTER PROCEDURE BUT PATIENT DID NOT ANSWER.
== END 2020-03-25 11:55 | disposition home or self-care (01) ==
LOC: ACC 10:50
PROVIDERS: PCP Internal Medicine Adolescent Medicine; Visit Provider Internal Medicine Cardiovascular Disease
DX: Z51.81 Encounter for therapeutic drug level monitoring (principal); Z79.01 Long term (current) use of anticoagulants; Z95.2 Presence of prosthetic heart valve
CPT/HCPCS: 85610; 99211; G0463

== ENCOUNTER → 2020-04-03 09:54 | Outpatient (CLI) | payer OTHER, SELFPAY ==
--- NOTE | 2020-04-03 09:55 | CA_ITS ---
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 2.40 (<2mmHg) MV PHT 83.00 ms Left Ventricle Left atrium is mildly enlarged, left ventricle is normal size, visually estimated ejection fraction 55% with no regional wall motion abnormality, diastolic parameters are inconclusive. Right Ventricle Right atrium and right ventricle mildly enlarged with normal contractility. Aortic Valve Aortic valve is minimally thickened and fibrosed, there is no aortic stenosis or aortic insufficiency. Mitral Valve There is a mechanical prosthetic valve noted in the mitral position, the valve is well-seated, there is no significant mitral inflow obstruction, there is no mitral regurgitation. Tricuspid Valve Tricuspid valve is grossly normal, there is mild tricuspid regurgitation, calculated right ventricular systolic pressure is 37 mmHg. Pulmonic Valve Pulmonic valve is poorly visualized. Great Vessels Aortic root is normal size. Pericardium No significant pericardial effusion noted Conclusion 1. Biatrial enlargement, normal left ventricular size, visually estimated ejection fraction 55% with no regional wall motion abnormality, diastolic parameters are inconclusive. 2. Mildly enlarged right ventricle with normal contractility. 3. Normal functioning mechanical prosthetic valve in the mitral position, without significant mitral inflow obstruction or mitral regurgitation. 4. Mild tricuspid regurgitation, calculated right ventricular systolic pressure is 37 mmHg. 5. No significant pericardial effusion noted. Electronically signed by : Alexy Zaldivar, 04/04/2020 13:30:31
== END ==
PROVIDERS: PCP Internal Medicine Adolescent Medicine; Visit Provider Internal Medicine Cardiovascular Disease
DX: R42 Dizziness and giddiness (principal); R06.09 Other forms of dyspnea; R93.1 Abnormal findings on diagnostic imaging of heart and coronary circulation; I07.1 Rheumatic tricuspid insufficiency; I10 Essential (primary) hypertension; I34.0 Nonrheumatic mitral (valve) insufficiency; F17.200 Nicotine dependence, unspecified, uncomplicated; Z95.2 Presence of prosthetic heart valve
CPT/HCPCS: 93306

== ENCOUNTER → 2020-04-05 12:27 | Outpatient (CLI) | payer OTHER, SELFPAY ==
[2020-04-05 12:55] LABS: INR 3.29 (0.9-1.1); Prothrombin Time 31.3 seconds (9.4-11.8)
[2020-04-05 15:39] LABS: Chloride 102 mmol/L (98-107); Potassium 4.5 mmoL/L (3.5-5.1); Sodium 139 mmol/L (136-145)
[2020-04-05 15:42] LABS: Blood Urea Nitrogen 18 mg/dl (7-17); Estimated Glomerular Filt Rate 50 ml/min (>60); GFR (African American) 61 ML/MIN (>60)
[2020-04-05 15:42] LABS: Iron 68 ug/dL (37-170)
[2020-04-05 15:43] LABS: Calcium 9.8 mg/dl (8.4-10.2); Carbon Dioxide 29 mmol/L (22.0-30.0); Glucose 83 mg/dl (74-100)
[2020-04-05 15:56] LABS: Total Iron Binding Capacity 499 ug/dL (265-497)
[2020-04-05 16:19] LABS: Ferritin 40.5 ng/ml (6.24-137)
[2020-04-05 20:12] LABS: Lactate Dehydrogenase 253 U/L (313-618)
== END ==
PROVIDERS: Internal Medicine Cardiovascular Disease; Visit Provider Physician Assistant
DX: R06.09 Other forms of dyspnea (principal); R42 Dizziness and giddiness; I07.1 Rheumatic tricuspid insufficiency; D64.9 Anemia, unspecified; I10 Essential (primary) hypertension; I34.0 Nonrheumatic mitral (valve) insufficiency; R93.1 Abnormal findings on diagnostic imaging of heart and coronary circulation; F17.200 Nicotine dependence, unspecified, uncomplicated; Z95.2 Presence of prosthetic heart valve; Z79.01 Long term (current) use of anticoagulants
CPT/HCPCS: 36415; 80048; 82728; 83540; 83550; 83615; 85610

== ENCOUNTER → 2020-05-06 15:44 | Outpatient (POV) | payer OTHER, SELFPAY | PROVIDERS: Visit Provider Nurse Practitioner Family | DX: Z00.00 Encounter for general adult medical examination without abnormal findings (principal) ==

== ENCOUNTER → 2020-08-22 09:19 | Outpatient (CLI) | payer OTHER, SELFPAY ==
[2020-08-22 11:18] LABS: Coronavirus 19 IgG Antibody Negative (Negative); Coronavirus 19 IgM Antibody Negative (Negative)
== END ==
PROVIDERS: Visit Provider Internal Medicine Gastroenterology
DX: Z01.812 Encounter for preprocedural laboratory examination (principal); Z20.822 Contact with and (suspected) exposure to COVID-19; Z12.11 Encounter for screening for malignant neoplasm of colon; R19.7 Diarrhea, unspecified
CPT/HCPCS: 36415; 86328

== ENCOUNTER 2020-08-23 10:48 | Day surgery (SDC) | payer OTHER, SELFPAY ==
[2020-08-21 16:19] VITALS: BMI 31.7
[2020-08-23 11:39] VITALS: BP 120/42; PULSE 74; RESP 18; TEMP 36.1; O2SAT 98
[2020-08-23 12:25] VITALS: O2SAT 98
--- NOTE | 2020-08-23 12:51 | P.PCN_ITS ---
[facility] Procedure Note Procedure Note:: Colonoscopy Procedure Report: Colonoscopy with snare cautery, Endo Clip placement and cold snare polypectomy Endoscopist: Claudio Lowry II, MD Referring physician: Simon Flores M.D. Date of Procedure: August 23, 2020 Equipment: Olympus 180 variable stiffness pediatric colonoscope Sedation: MAC sedation Indication: Mrs. Carvalho is a 40-year-old female with iron deficiency anemia who is here for diagnostic colonoscopy. The patient did have aortic valve replacement and is on Coumadin. The patient had noted some occasional bright red rectal bleeding typical of hemorrhoids. The patient's hemoglobin was 9.8 with iron 68, iron saturation 13.6 and ferritin 40.5. The patient reports postprandial yellow/bilious appearing diarrhea chronically and this has not changed. She did have prior cholecystectomy. The patient reports no abdominal pain, weight loss or family history of colon cancer. This is her first colonoscopy. Procedure: Prior to the procedure, a history and physical exam was performed, and patient's medications and allergies were reviewed. The risks, benefits and alternatives of the sedation and procedure were discussed with the patient. All questions were answered and informed consent was obtained. The patient was brought to the procedure room. Patient identification and proposed procedure were verified by the physician and the nurse. The patient was placed in a left lateral decubitus position and the scope was passed under direct vision. Throughout the procedu re, the patient's blood pressure, pulse, and oxygen saturations were monitored continuously. The colonoscopy was accomplished without difficulty. The patient tolerated the procedure well. Findings: On digital rectal examination there was normal rectal tone. There were no external hemorrhoids. The colonoscope was introduced through the anal canal to the rectum and advanced to the cecum. The ileocecal valve and appendiceal orifice were identified. The scope was advanced a short distance into the ileum which appeared grossly normal. The scope was then withdrawn into the colon. The cecum, ascending, transverse and descending were grossly normal. The preparation was fair to poor with a moderate amount of brown liquid stool throughout. Within the sigmoid colon was a large 18 mm pedunculated polyp that was removed via snare cautery. There was minor heme at the stalk and a single Endo Clip was used to close the polypectomy site and prevent bleeding (provide hemostasis). There was a second 9 mm polyp in the rectum that was removed via cold snare polypectomy. There were no mucosal abnormalities identified. Upon retroflexion within the rectum there were grade 1-2 internal hemorrhoids.The preparation was fair to poor throughout with [place] Preparation Score of 5 out of 9. The cecal time was 17 minutes. Impression: 1. Sigmoid polyp (pedunculated 18 mm) 2. Rectal polyp (9 mm) 3. Grade 1-2 internal hemorrhoids 4. Fair to poor bowel preparation Plan: Based upon the size of these polyps, I do suspect advanced adenomas. I will follow-up the histology/path. I would recommend repeat surveillance in 2 years. It is possible that the larger adenomatous polyp resulted in some chronic gastrointestinal blood loss. I would like for her to do Hemoccult testing. If she were Hemoccult positive I would then consider doing upper endoscopy. I will discuss the findings with the patient and family.
[2020-08-23 12:53] VITALS: BP 83/56; PULSE 65; RESP 18; TEMP 36.8; O2SAT 93
[2020-08-23 13:03] VITALS: BP 112/68; PULSE 73; RESP 18; O2SAT 100
[2020-08-23 13:13] VITALS: BP 124/89; PULSE 70; RESP 18; O2SAT 98
[2020-08-23 13:23] VITALS: BP 117/79; PULSE 67; RESP 18; O2SAT 98
== END 2020-08-23 13:45 | disposition home or self-care (01) ==
LOC: OUTP 10:49
PROVIDERS: PCP Internal Medicine Adolescent Medicine; Visit Provider Internal Medicine Gastroenterology
PROC: 0DJD8ZZ Inspection of Lower Intestinal Tract, Via Natural or Artificial Opening Endoscopic (ICD-10-PCS; CPT 45378; principal; 2020-08-23 11:00)
DX: Z95.2 Presence of prosthetic heart valve (principal); K64.0 First degree hemorrhoids; K63.5 Polyp of colon; K62.1 Rectal polyp; Z79.01 Long term (current) use of anticoagulants; I10 Essential (primary) hypertension; G47.33 Obstructive sleep apnea (adult) (pediatric); J45.909 Unspecified asthma, uncomplicated; K21.9 Gastro-esophageal reflux disease without esophagitis; Z88.6 Allergy status to analgesic agent; Z88.0 Allergy status to penicillin; Z79.899 Other long term (current) drug therapy
CPT/HCPCS: 45385

== ENCOUNTER → 2020-08-23 | Outpatient (CLI) | payer OTHER, SELFPAY ==
[2020-09-04 14:15] LABS: Occult Blood,Stool Negative (Negative)
== END ==
PROVIDERS: Visit Provider Internal Medicine Gastroenterology
DX: Z12.11 Encounter for screening for malignant neoplasm of colon (principal)
CPT/HCPCS: 82272; G0328

== ENCOUNTER → 2020-08-24 11:46 | Outpatient (CLI) | payer OTHER, SELFPAY ==
[2020-09-04 14:15] LABS: Occult Blood,Stool Negative (Negative)
== END ==
PROVIDERS: Visit Provider Internal Medicine Gastroenterology
DX: Z12.11 Encounter for screening for malignant neoplasm of colon (principal)
CPT/HCPCS: 82272; G0328

== ENCOUNTER → 2020-08-25 09:40 | Outpatient (CLI) | payer OTHER, SELFPAY ==
[2020-09-04 14:15] LABS: Occult Blood,Stool Negative (Negative)
== END ==
PROVIDERS: Visit Provider Internal Medicine Gastroenterology
DX: Z12.11 Encounter for screening for malignant neoplasm of colon (principal)
CPT/HCPCS: 82272; G0328

== ENCOUNTER → 2020-09-04 12:16 | Outpatient (CLI) | payer OTHER, SELFPAY ==
[2020-09-04 12:50] LABS: Basophils # 0.1 K/mm3 (0-0.2); Basophils % 0.7 % (0.1-2.0); Eosinophils # 0.3 K/mm3 (0.0-0.4); Eosinophils % 2.8 % (0.1-12.0); Lymphocytes % 21.6 % (10-50); Mean Corpuscular HGB Conc 33.3 g/dL (31.8-35.4); Mean Corpuscular Hemoglobin 31.8 pg (27.0-31.2); Mean Corpuscular Volume 95.4 fl (81-99); Mean Platelet Volume 9.6 fl (7.4-10.4); Monocytes # 0.5 K/mm3 (0.1-1.0); Monocytes % 5.5 % (1.7-9.3); Neutrophils # 6.4 K/mm3 (1.8-7.8); Neutrophils % 69.4 % (37.0-80.0); Platelet Count 318 K/mm3 (142-424); Red Blood Count 4.09 M/mm3 (4.20-5.40); Red Cell Distribution Width 15.3 % (11.5-17.5); White Blood Count 9.3 K/mm3 (4.8-10.8)
[2020-09-04 13:35] LABS: Iron 59 ug/dL (37-170)
[2020-09-04 13:44] LABS: Total Iron Binding Capacity 390 ug/dL (265-497)
[2020-09-04 14:11] LABS: Ferritin 79.1 ng/ml (6.24-137)
== END ==
PROVIDERS: Visit Provider Nurse Practitioner Family
DX: D50.9 Iron deficiency anemia, unspecified (principal); F50.89 Other specified eating disorder
CPT/HCPCS: 36415; 82728; 83540; 83550; 85025

== ENCOUNTER → 2020-11-27 15:01 | Outpatient (CLI) | payer OTHER, SELFPAY ==
[2020-11-27 15:43] LABS: Basophils # 0.1 K/mm3 (0-0.2); Basophils % 0.7 % (0.1-2.0); Eosinophils # 0.3 K/mm3 (0.0-0.4); Eosinophils % 2.7 % (0.1-12.0); Hematocrit 38.9 % (37.0-47.0); Hemoglobin 12.8 g/dL (12.2-16.2); Lymphocytes # 2.5 K/mm3 (0.7-4.5); Lymphocytes % 24.5 % (10-50); Mean Corpuscular Hemoglobin 31.5 pg (27.0-31.2); Mean Corpuscular Volume 95.6 fl (81-99); Mean Platelet Volume 11.1 fl (7.4-10.4); Monocytes # 0.6 K/mm3 (0.1-1.0); Neutrophils # 6.7 K/mm3 (1.8-7.8); Neutrophils % 66.2 % (37.0-80.0); Platelet Count 326 K/mm3 (142-424); Red Blood Count 4.07 M/mm3 (4.20-5.40); White Blood Count 10.1 K/mm3 (4.8-10.8)
[2020-11-27 16:07] LABS: Alanine Aminotransferase 28 U/L (12-78); Albumin Level 4.8 g/dl (3.5-5.0); Albumin/Globulin Ratio 1.4 (1.1-1.8); Alkaline Phosphatase 125 U/L (38-126); Anion Gap 14.6 mEq/L (5-15); Aspartate Amino Transferase 32 U/L (14-36); Bilirubin,Total 0.4 mg/dl (0.2-1.3); Blood Urea Nitrogen 15 mg/dl (7-17); Calcium 9.8 mg/dl (8.4-10.2); Carbon Dioxide 28 mmol/L (22.0-30.0); Chloride 98 mmol/L (98-107); Chol/HDL Ratio 10.7 (1-3.5); Cholesterol 246 mg/dl (140-200); Estimated Glomerular Filt Rate 55 ml/min (>60); GFR (African American) 67 ML/MIN (>60); Globulin 3.5 g/dL (1.3-3.2); Glucose 110 mg/dl (74-100); HDL Cholesterol 23 mg/dl (40-60); Potassium 3.6 mmoL/L (3.5-5.1); Sodium 137 mmol/L (136-145); Total Protein,Serum 8.3 g/dl (6.3-8.2)
[2020-11-27 16:19] LABS: Direct LDL Cholesterol 59.55 mg/dL (100-129)
[2020-11-27 16:37] LABS: Thyroid Stimulating Hormone 3.71 uIU/mL (0.465-4.68)
[2020-11-27 17:05] LABS: Triglycerides 845 mg/dl (30-150)
== END ==
PROVIDERS: PCP Nurse Practitioner Family; Visit Provider Internal Medicine Cardiovascular Disease
DX: I10 Essential (primary) hypertension (principal); R79.89 Other specified abnormal findings of blood chemistry; Z45.2 Encounter for adjustment and management of vascular access device; Z51.81 Encounter for therapeutic drug level monitoring; Z79.01 Long term (current) use of anticoagulants
CPT/HCPCS: 80048; 80053; 80061; 84443; 85025

== ENCOUNTER 2021-04-03 19:54 | Emergency (ER) | payer OTHER, SELFPAY ==
[2021-04-03 19:55] VITALS: BP 122/84; PULSE 73; RESP 16; TEMP 36.4; O2SAT 100; BMI 30.9
--- NOTE | 2021-04-03 21:50 | CT_ITS ---
PROCEDURE INFORMATION: Exam: CT Head Without Contrast Exam date and time: 04/03/2021 9:50 PM Age: 41 years old Clinical indication: Other: Right hand numbness only complaint per patient; Additional info: Abnormal sensation TECHNIQUE: Imaging protocol: Computed tomography of the head without contrast. Radiation optimization: All CT scans at this facility use at least one of these dose optimization techniques: automated exposure control; mA and/or kV adjustment per patient size (includes targeted exams where dose is matched to clinical indication); or iterative reconstruction. COMPARISON: HEADWO CT head/brain wo con 01/26/2018 9:31 PM FINDINGS: Brain: Normal. No hemorrhage. Unremarkable white matter. No mass effect. Cerebral ventricles: No ventriculomegaly. Paranasal sinuses: Visualized sinuses are unremarkable. No fluid levels. Mastoid air cells: Visualized mastoid air cells are well aerated. Bones/joints: Unremarkable. No acute fracture. Soft tissues: Unremarkable. IMPRESSION: No acute intracranial abnormality.
[2021-04-03 22:00] VITALS: BP 126/76; PULSE 71; RESP 18; O2SAT 99
[2021-04-03 22:43] LABS: Basophils # 0.1 K/mm3 (0-0.2); Basophils % 1.1 % (0.1-2.0); Eosinophils # 0.2 K/mm3 (0.0-0.4); Hematocrit 38.3 % (37.0-47.0); Hemoglobin 12.1 g/dL (12.2-16.2); Lymphocytes # 1.6 K/mm3 (0.7-4.5); Mean Corpuscular HGB Conc 31.5 g/dL (31.8-35.4); Mean Corpuscular Hemoglobin 31.4 pg (27.0-31.2); Mean Corpuscular Volume 99.5 fl (81-99); Mean Platelet Volume 8.7 fl (7.4-10.4); Monocytes # 0.5 K/mm3 (0.1-1.0); Neutrophils # 5.1 K/mm3 (1.8-7.8); Neutrophils % 68.9 % (37.0-80.0); Platelet Count 407 K/mm3 (142-424); Red Blood Count 3.85 M/mm3 (4.20-5.40); Red Cell Distribution Width 14.5 % (11.5-17.5); White Blood Count 7.4 K/mm3 (4.8-10.8)
[2021-04-03 22:50] LABS: Alanine Aminotransferase 32 U/L (12-78); Albumin Level 4.6 g/dl (3.5-5.0); Albumin/Globulin Ratio 1.2 (1.1-1.8); Alkaline Phosphatase 65 U/L (38-126); Anion Gap 13.9 mEq/L (5-15); Aspartate Amino Transferase 41 U/L (14-36); Bilirubin,Total 0.3 mg/dl (0.2-1.3); Blood Urea Nitrogen 20 mg/dl (7-17); Calcium 9.6 mg/dl (8.4-10.2); Carbon Dioxide 29 mmol/L (22.0-30.0); Chloride 102 mmol/L (98-107); Creatinine Clearance Estimated 88 mL/min (50-200); Estimated Glomerular Filt Rate 55 ml/min (>60); GFR (African American) 67 ML/MIN (>60); Glucose 114 mg/dl (74-100); Potassium 3.9 mmoL/L (3.5-5.1); Sodium 141 mmol/L (136-145); Total Protein,Serum 8.6 g/dl (6.3-8.2)
[2021-04-03 22:55] LABS: C-Reactive Protein 9.2 mg/L (0-4)
--- NOTE | 2021-04-03 23:05 | HMH.EDUPEXT ---
ED Disposition Clinical Impression: Right hand paresthesia Disposition: Home, Self-Care Condition on Discharge: Good Instructions: DI for Numbness/Tingling Additional Instructions: see pcp for follow up Prescriptions: predniSONE [Prednisone 20mg Tab] 20 mg PO BID #10 tab Transmission Status: Pending to [facility] Referrals: Simon Flores MD [Primary Care Provider] - - Critical Care Critical Care Time: No Attestation: On 04/03/21, the high probability of a clinically significant, sudden or life threatening deterioration of the following system(s) required my full and direct attention, intervention and personal management. The time I documented below is in addition to time spent performing reported procedures but includes the following listed in this critical care notation. Medical Decision Making - Medical Records Medical records reviewed: Yes: I reviewed the patient's medical records. - Barak Inquiry Pt receiving controlled substance: No Vital Signs: 04/03/21 19:55 Temperature 97.5 F L Temperature Source Oral Pulse Rate [Left Radial] 73 Respiratory Rate 16 Blood Pressure [Left Arm] 122/84 Blood Pressure Mean [Left Arm] 96 Blood Pressure Source [Left Arm] Automatic Cuff Blood Pressure Position [Left Arm] Sitting 02 Sat by Pulse Oximetry 100 Oxygen Delivery Method Room Air - Lab Data Lab results reviewed: Yes: I reviewed the patient's lab results. Lab Results 04/03/21 22:31: WBC 7.4, RBC 3.85 L, Hgb 12.1 L, Hct 38.3, MCV 99.5 H, MCH 31.4 H, MCHC 31.5 L, RDW 14.5, Plt Count 407, MPV 8.7, Neut % (Auto) 68.9, Lymph % (Auto) 22.0, [place] % (Auto) 6.0, Eos % (Auto) 2.0, Baso % (Auto) 1.1, Neut # (Auto) 5.1, Lymph # (Auto) 1.6, [place] # (Auto) 0.5, Eos # (Auto) 0.2, Baso # (Auto) 0.1 04/03/21 22:31: Sodium 141, Potassium 3.9, Chloride 102, Carbon Dioxide 29, Anion Gap 13.9, BUN 20 H, Creatinine 1.10 H, Estimated Creat Clear 88, Estimated GFR 55 L, Est GFR ( Amer) 67, Glucose 114 H, Calcium 9.6, Total Bilirubin 0.3, AST 41 H, ALT 32, Alkaline Phosphatase 65, C-Reactive Protein 9.2 H, Total Protein 8.6 H, Albumin 4.6, Globulin 4.0 H, Albumin/Globulin Ratio 1.2 Result diagrams: 04/03/21 22:31 04/03/21 22:31 Orders (Tests/Meds): ED MEDICATIONS Discontinued Medications Generic Name Dose Route Start Last Admin Trade Name Martha PRN Reason Stop Dose Admin Prednisone 40 mg 04/03/21 22:46 Prednisone 20mg Tab PO 04/03/21 22:47 ONCE ONE ORDERS Category Date Time Status Erythrocyte Sedimentation Rate Stat Lab 04/03/21 22:31 Received PT/INR [Prothrombin Time INR] Stat Lab 04/03/21 22:31 Received Procalcitonin Stat Lab 04/03/21 22:31 Received - CT Data CT Scan: Head Time Received: 23:[address] Reviewed: Yes: I have viewed the radiologist's interpretation Preliminary Findings: Normal/NAD Medical Decision Narrative: pt has neg eval for acute changes and will need eval for cervical dis Upper Extremity HPI - General Chief Complaint: Extremity Injury, Upper Stated Complaint: rt hand numbness, swollen Time Seen by Provider: 04/03/21 21:00 Mode of Arrival: Ambulatory Source of Information: Patient, Medical Record Limitations: No Limitations Description of Symptoms (Recalled from ER Triage Doc. by RN): Pt reports right hand numbness. She says she was fine at 2pm when she went to work and she noticed her hand was numb around 5 or 6 . Pt is able to move and flex right hand. No reported injuries. - History of Present Illness HPI narrative: pt with parasthesia to rt hand tonight diffuse ant/post - pt with tingling in lt upper ext - no trauma and no other neuro sx- no speech or visual sx - rt handed - uses tob complaint: injury to: right, hand Onset (ago): hour(s) Other Extremity Injury: Right: hand Other injuries: none Handedness: right Place: work Severity: moderate Context: other (nontraumatic ) Associated symptoms: denies other symptoms
[2021-04-03 23:09] LABS: Procalcitonin 0.046 ng/mL (0.0-2.0); Prothrombin Time 11.4 seconds (10.1-12.5)
[2021-04-03 23:14] LABS: Erythrocyte Sedimentation Rate 25 mm/hr (0-20)
[2021-04-03 23:15] LABS: INR 0.96 (0.9-1.1)
[2021-04-03 23:24] VITALS: BP 150/88; PULSE 75; RESP 16; TEMP 36.7; O2SAT 100
== END 2021-04-03 23:29 | disposition home or self-care (01) ==
PROVIDERS: Emergency Provider Emergency Medicine; PCP Internal Medicine Adolescent Medicine
DX: R20.2 Paresthesia of skin (principal); F41.8 Other specified anxiety disorders; K21.9 Gastro-esophageal reflux disease without esophagitis; I10 Essential (primary) hypertension; F17.210 Nicotine dependence, cigarettes, uncomplicated; Z88.0 Allergy status to penicillin; Z88.5 Allergy status to narcotic agent
CPT/HCPCS: 70450; 80053; 84145; 85025; 85610; 85651; 86140; 99282

== ENCOUNTER → 2021-05-02 17:55 | Outpatient (CLI) | payer OTHER, SELFPAY ==
[2021-05-02 18:56] LABS: Basophils # 0.1 K/mm3 (0-0.2); Basophils % 0.7 % (0.1-2.0); Eosinophils # 0.2 K/mm3 (0.0-0.4); Eosinophils % 2.4 % (0.1-12.0); Hematocrit 37.1 % (37.0-47.0); Hemoglobin 11.9 g/dL (12.2-16.2); Lymphocytes # 1.7 K/mm3 (0.7-4.5); Lymphocytes % 23.5 % (10-50); Mean Corpuscular Hemoglobin 31.2 pg (27.0-31.2); Mean Corpuscular Volume 97.7 fl (81-99); Mean Platelet Volume 10.6 fl (7.4-10.4); Monocytes # 0.5 K/mm3 (0.1-1.0); Monocytes % 6.2 % (1.7-9.3); Neutrophils % 67.2 % (37.0-80.0); Platelet Count 383 K/mm3 (142-424); Red Cell Distribution Width 14.4 % (11.5-17.5); White Blood Count 7.4 K/mm3 (4.8-10.8)
[2021-05-02 19:02] LABS: INR 1.16 (0.9-1.1)
[2021-05-02 19:16] LABS: Anion Gap 10.7 mEq/L (5-15); Bilirubin,Total 0.2 mg/dl (0.2-1.3); Blood Urea Nitrogen 4 mg/dl (7-17); Calcium 8.7 mg/dl (8.4-10.2); Carbon Dioxide 27 mmol/L (22.0-30.0); Chloride 107 mmol/L (98-107); Estimated Glomerular Filt Rate 69 ml/min (>60); GFR (African American) 84 ML/MIN (>60); Glucose 110 mg/dl (74-100); Potassium 3.7 mmoL/L (3.5-5.1); Sodium 141 mmol/L (136-145)
[2021-05-02 19:17] LABS: Alanine Aminotransferase 84 U/L (12-78); Albumin Level 3.3 g/dl (3.5-5.0); Albumin/Globulin Ratio 1.1 (1.1-1.8); Alkaline Phosphatase 79 U/L (38-126); Aspartate Amino Transferase 75 U/L (14-36); Chol/HDL Ratio 7.2 (1-3.5); Cholesterol 173 mg/dl (140-200); Globulin 2.9 g/dL (1.3-3.2); HDL Cholesterol 24 mg/dl (40-60); Total Protein,Serum 6.2 g/dl (6.3-8.2)
[2021-05-02 19:19] LABS: Triglycerides 519 mg/dl (30-150)
[2021-05-02 19:27] LABS: Direct LDL Cholesterol 85.34 mg/dL (100-129)
== END ==
PROVIDERS: Visit Provider Nurse Practitioner Family
DX: Z00.00 Encounter for general adult medical examination without abnormal findings (principal); Z51.81 Encounter for therapeutic drug level monitoring; Z79.01 Long term (current) use of anticoagulants; Z95.2 Presence of prosthetic heart valve
CPT/HCPCS: 80053; 80061; 85025; 85610

== ENCOUNTER 2021-05-29 15:26 | Inpatient (IN) | payer OTHER, SELFPAY ==
[2021-05-29 15:22] VITALS: BP 110/72; PULSE 75; RESP 16; TEMP 36.6; O2SAT 99; BMI 31.7
--- NOTE | 2021-05-29 15:50 | HMH.EDGENADL ---
ED Disposition Clinical Impression: Muscle spasm Disposition: Still a Patient Condition on Discharge: Fair Additional Instructions: You may also take acetaminophen in addition to the flexiril, if pain significantly worsens, does not begin to improve within a few days return to the emergency department. Prescriptions: Cyclobenzaprine HCl [Flexeril 10mg tablet] 10 mg PO Q8HP PRN #20 tab PRN Reason: Muscle Pain Transmission Status: Sent to [facility] Referrals: Provider,Referral, [Referring] - - Critical Care Critical Care Time: No Attestation: On 05/29/21, the high probability of a clinically significant, sudden or life threatening deterioration of the following system(s) required my full and direct attention, intervention and personal management. The time I documented below is in addition to time spent performing reported procedures but includes the following listed in this critical care notation. Medical Decision Making - Medical Records Medical records reviewed: Yes: I reviewed the patient's medical records. - Barak Inquiry Pt receiving controlled substance: No Vital Signs: 05/29/21 15:22 05/29/21 16:01 05/29/21 16:30 Temperature 97.9 F Temperature Source Oral Pulse Rate 71 71 Pulse Rate [Right Radial] 75 Respiratory Rate 16 20 20 Blood Pressure 130/88 120/92 H Blood Pressure [Right Arm] 110/72 Blood Pressure Mean 102 101 Blood Pressure Mean [Right Arm] 84 Blood Pressure Source [Right Arm] Automatic Cuff Blood Pressure Position [Right Arm] Sitting 02 Sat by Pulse Oximetry 99 100 99 Oxygen Delivery Method Room Air 05/29/21 17:01 Temperature Temperature Source Pulse Rate 87 Pulse Rate [Right Radial] Respiratory Rate 20 Blood Pressure 99/57 L Blood Pressure [Right Arm] Blood Pressure Mean 71 Blood Pressure Mean [Right Arm] Blood Pressure Source [Right Arm] Blood Pressure Position [Right Arm] 02 Sat by Pulse Oximetry 96 Oxygen Delivery Method - Lab Data Lab Results 05/29/21 15:24: WBC 12.1 H, RBC 3.81 L, Hgb 11.9 L, Hct 36.8 L, MCV 96.5, MCH 31.2, MCHC 32.3, RDW 14.4, Plt Count 324, MPV 10.4, Neut % (Auto) 80.8 H, Lymph % (Auto) 12.4, Broome % (Auto) 5.7, Eos % (Auto) 0.5, Baso % (Auto) 0.5, Neut # (Auto) 9.8 H, Lymph # (Auto) 1.5, Broome # (Auto) 0.7, Eos # (Auto) 0.1, Baso # (Auto) 0.1 05/29/21 15:24: Sodium 138, Potassium 4.4, Chloride 102, Carbon Dioxide 28, Anion Gap 12.4, BUN 31 H, Creatinine 2.00 H, Estimated Creat Clear 50, Estimated GFR 28 L, Est GFR ( Amer) 33 L, Glucose 137 H, Calcium 9.6, Total Bilirubin 0.5, AST 30, ALT 19, Alkaline Phosphatase 51, Total Protein 8.2 D, Albumin 4.5, Globulin 3.7 H, Albumin/Globulin Ratio 1.2 05/29/21 17:06: PT 90.0 H, INR 8.00 H 05/29/21 20:19: SARS-CoV-2 (PCR) Not detected, Influenza A Untype (PCR) Not detected, Influenza Type B (PCR) Not detected Result diagrams: 05/29/21 15:24 05/29/21 15:24 Orders (Tests/Meds): ED MEDICATIONS Discontinued Medications Generic Name Dose Route Start Last Admin Trade Name Freq PRN Reason Stop Dose Admin Acetaminophen 1,000 mg 05/29/21 15:55 05/29/21 16:42 Acetaminophen 500mg Tab PO 05/29/21 15:56 1,000 mg ONCE ONE Administration Phytonadione 10 mg/ Sodium 51 mls @ 100 mls/hr 05/29/21 20:24 05/29/21 21:02 Chloride IV 05/29/21 20:54 100 mls/hr ONCE ONE Administration Ketorolac Tromethamine 15 mg 05/29/21 15:53 05/29/21 16:43 Ketorolac 30mg/Ml Vial IV 05/29/21 15:54 15 mg ONCE ONE Administration Methocarbamol 1,500 mg 05/29/21 15:56 05/29/21 16:44 Methocarbamol 500mg Tablet PO 05/29/21 15:57 1,500 mg BID ONE Administration Morphine Sulfate 4 mg 05/29/21 15:55 05/29/21 16:43 Morphine 4mg/Ml Syringe IV 05/29/21 15:56 4 mg ONCE ONE Administration ORDERS Category Date Time Status Consult to Orthopedic Surgery [CONS] Stat Cons 05/29/21 21:24 Ordered Medical Decision Narrative: Patient is
[2021-05-29 16:01] VITALS: BP 130/88; PULSE 71; RESP 20; O2SAT 100
[2021-05-29 16:02] LABS: Basophils # 0.1 K/mm3 (0-0.2); Basophils % 0.5 % (0.1-2.0); Eosinophils # 0.1 K/mm3 (0.0-0.4); Eosinophils % 0.5 % (0.1-12.0); Hematocrit 36.8 % (37.0-47.0); Hemoglobin 11.9 g/dL (12.2-16.2); Lymphocytes # 1.5 K/mm3 (0.7-4.5); Lymphocytes % 12.4 % (10-50); Mean Corpuscular HGB Conc 32.3 g/dL (31.8-35.4); Mean Corpuscular Hemoglobin 31.2 pg (27.0-31.2); Mean Corpuscular Volume 96.5 fl (81-99); Mean Platelet Volume 10.4 fl (7.4-10.4); Monocytes # 0.7 K/mm3 (0.1-1.0); Monocytes % 5.7 % (1.7-9.3); Neutrophils # 9.8 K/mm3 (1.8-7.8); Neutrophils % 80.8 % (37.0-80.0); Platelet Count 324 K/mm3 (142-424); Red Blood Count 3.81 M/mm3 (4.20-5.40); Red Cell Distribution Width 14.4 % (11.5-17.5); White Blood Count 12.1 K/mm3 (4.8-10.8)
[2021-05-29 16:06] LABS: Alanine Aminotransferase 19 U/L (12-78); Albumin Level 4.5 g/dl (3.5-5.0); Albumin/Globulin Ratio 1.2 (1.1-1.8); Alkaline Phosphatase 51 U/L (38-126); Anion Gap 12.4 mEq/L (5-15); Aspartate Amino Transferase 30 U/L (14-36); Bilirubin,Total 0.5 mg/dl (0.2-1.3); Blood Urea Nitrogen 31 mg/dl (7-17); Calcium 9.6 mg/dl (8.4-10.2); Carbon Dioxide 28 mmol/L (22.0-30.0); Chloride 102 mmol/L (98-107); Creatinine Clearance Estimated 50 mL/min (50-200); Estimated Glomerular Filt Rate 28 ml/min (>60); GFR (African American) 33 ML/MIN (>60); Globulin 3.7 g/dL (1.3-3.2); Glucose 137 mg/dl (74-100); Potassium 4.4 mmoL/L (3.5-5.1); Sodium 138 mmol/L (136-145); Total Protein,Serum 8.2 g/dl (6.3-8.2)
--- NOTE | 2021-05-29 16:14 | CA_ITS ---
APPROVED REPORT Left Lower Extremity Venous Study for DVT. Legal Director: LONA Indications History of Smoking pain, Hx-COVID 2months ago Findings Color flow duplex demonstrates no evidence of DVT of the following left lower extremity Veins:Common Femoral Vein, Popliteal Vein, Femoral Vein, Posterior Tibial Veins, Peroneal Veins. Negative for DVT. Conclusion Negative for DVT. Critical Notification Critical Value: No Physician Notified Date: 05/29/2021 Time: 16:44 Physician Name: Nayeli Response Time: 2min Electronically signed by : Rubin Terry MD 05/29/2021 16:51:51
--- NOTE | 2021-05-29 16:29 | PC.NURSE ---
vascular here for doppler study
[2021-05-29 16:30] VITALS: BP 120/92; PULSE 71; RESP 20; O2SAT 99
[2021-05-29 17:01] VITALS: BP 99/57; PULSE 87; RESP 20; O2SAT 96
--- NOTE | 2021-05-29 18:54 | CT_ITS ---
PROCEDURE INFORMATION: Exam: CT Left Lower Extremity Without Contrast; Lower Leg Exam date and time: 05/29/2021 6:54 PM Age: 41 years old Clinical indication: Pain; Lower leg; Left; Additional info: Pain in the lower ext TECHNIQUE: Imaging protocol: CT of the Left lower extremity without contrast was performed. Exam focused on the lower leg. Total images: 498 Radiation optimization: All CT scans at this facility use at least one of these dose optimization techniques: automated exposure control; mA and/or kV adjustment per patient size (includes targeted exams where dose is matched to clinical indication); or iterative reconstruction. COMPARISON: CA VENOUS DOPPLER LE LT 05/29/2021 4:23 PM FINDINGS: Bones/joints: No fractures. No blastic or lytic lesions. No periostitis or osteolysis. Visualized knee and ankle joints are unremarkable. Soft tissues: Complex fluid collection consistent with acute or subacute hematoma interposed between the medial gastrocnemius head and medial soleus musculature consistent with myofascial tear (tennis leg). The hematoma measures about 7 cm AP x 2 cm in transverse thickness by 15 cm craniocaudal, estimated volume 100 mL. Additional non loculated fluid tracks along the medial myofascial margin of the soleus musculature distally. Normal variant low-lying accessory soleus muscle configuration. IMPRESSION: There is evidence of myofascial tear between the medial gastroc head and medial soleus musculature (tennis leg) within intermuscular hematoma tracking in this distribution, estimated volume 100 mL.
--- NOTE | 2021-05-29 20:15 | PC.NURSE ---
paged Dr. Dang for Dr. Tyler. He is in surgery at this time and will call back.
[2021-05-29 20:23] LABS: Coronavirus 19, PCR Not Detected (NotDetected); Influenza A, PCR Not Detected (NotDetected); Influenza B, PCR Not Detected (NotDetected)
--- NOTE | 2021-05-29 20:50 | PC.NURSE ---
Checked status of Dr. Dang in surgery, he is closing at this time.
--- NOTE | 2021-05-29 21:05 | PC.NURSE ---
Dr. Tyler s/w Dr. Sanchez regarding admission.
--- NOTE | 2021-05-29 21:47 | PC.NURSE ---
Jaskaran notified on the need for admission, Dr. Sanchez for Dr. Flores
--- NOTE | 2021-05-29 22:04 | PC.NURSE ---
Dr. Tyler s/w Dr. Dang at this time.
--- NOTE | 2021-05-29 22:10 | PC.NURSE ---
s/w [facility] at request of Dr. Dang to call [facility].
--- NOTE | 2021-05-29 22:11 | PC.NURSE ---
CALLING [facility] AT THIS TIME
--- NOTE | 2021-05-29 22:15 | PC.NURSE ---
DR. BRANHAM SPEAKING TO DR. MAXIM DAWKINS AT AT THIS TIME
--- NOTE | 2021-05-29 22:20 | PC.NURSE ---
Attempted to call report on pt. RN not able to at this time.
--- NOTE | 2021-05-29 22:29 | PC.NURSE ---
This RN s/w framing mill supervisor regarding pt. She stated per Dr. Dang he did not want pt adx here under him. Dr. Sanchez has agreed to accept pt. Dr. Tyler did s/w [facility] and they refused to accept pt for transfer.
--- NOTE | 2021-05-29 22:34 | PC.NURSE ---
building supervisor called this RN after s/w Dr. Dang for a 2nd time. He stated I am not comfortable and I do not agree to accept patient . Dr. Tyler has already left. Will update Dr. Cox on this situation to see if he or Dr. Sanchez will reach out to other facilities for transfer as Dr. Dang has refused to accept pt.
[2021-05-29 23:34] LABS: Creatine Kinase 73 U/L (30-135)
--- NOTE | 2021-05-29 23:52 | PC.NURSE ---
patient up to floor via wheelchair @ this time.
[2021-05-30] VITALS: BP 80/48; PULSE 73; RESP 28; TEMP 36.4; O2SAT 100
[2021-05-30 00:07] VITALS: BP 120/75; PULSE 72; RESP 20; TEMP 36.6; O2SAT 99
[2021-05-30 00:19] VITALS: BP 93/65
--- NOTE | 2021-05-30 00:23 | PC.NURSE ---
Pt rates pain in LLE 05/04. Leg is pink ,warm. Pedal pulse present. Calf circumference at largest point is 17 in. Pt refuses numbness/tingling. PRN Pain medication administered per SEP.
--- NOTE | 2021-05-30 06:51 | HMH.HP ---
*Admission Date: 05/29/21 *Chief complaint: leg pain *History of present illness: Ms. Carvalho is a 41-year-old female with history of mechanical mitral valve replacement, ASD repair, chronic anticoagulation with Coumadin, asthma, and obesity who presented to the ER last night with acute left lower extremity pain. States pain began within 1 to 2 days of presenting to the ER. Denies any known trauma. Pain prominent in the left calf. Has not taken anything for it as she did not have anything at home to take. Pain is tight and pressure-like in character. Having a hard time walking on her leg. On initial assessment, patient found to have an INR of 8, creatinine of 2 (baseline 1), and imaging/CT of left leg was obtained. Per ED note she continued to have pulses in her left lower extremity. Due to concern for patient's continued tense left lower extremity, Olu pressure in the posterior compartments of the calf was assessed and patient pressure was elevated at 26 and 28 when assessed. This ordered a CT to assess for traumatic hemarthrosis. Patient had CT had a myofascial tear between the medial gastrohead and the medial soleus, patient had intramuscular hematoma. Patient was given vitamin K, warfarin was held, orthopedics consulted, and patient admitted to medicine for further management. Attempt made to transfer out of concern for possible compartment syndrome however given pressure readings and inability to transfer to due to bed status, patient seen this morning on [facility]. Was given a dose of Toradol for her pain overnight. Reviewed labs from this morning which showed worsening kidney function with creatinine of 3.2. INR this morning improved to 1.75 She c/o some throat tightness. Denies chest pain, shortness of breath, abdominal pain nausea or vomiting. [facility] History I have reviewed the patient's past medical history: Yes Medical History: Reports:: Anxiety, Depression, Gastroesophageal Reflux Disease(GERD), Heart Murmur, Hypertension, Valvular Heart Disease Denies:: Cancer, Diabetes Mellitus Type 1, Diabetes Mellitus Type 2, Internal Pacemaker, MRSA, Seizures *Have you ever received a pneumonia vaccine?: No *Have you received a flu vaccine this season?: No Other Medical History: Reports: Anemia Other Surgeries: Yes: Cardiac Catheterization, Cardiac Surgery, Cholecystectomy, Hysterectomy-Total. No: Pacemaker Amputation: No Fractures: No - *Social History Last grade of school completed: 9th or 10th Smoking Status: Current every day smoker Tobacco Type: cigarettes # Packs/Day (cigarettes): 1 #Yrs smoked (if former smoker): 26 Alcohol Intake: never Alcohol Intake Frequency:: other Substance Use Type: denies use *Occupational Status:: employed Housing: house Household Members: family, children *Travel in the last 8 weeks: None - Psychiatric History Pschychiatric History:: Reports:: Anxiety, Depression Family Hx:: Asthma, Diabetes, Hyperlipidemia, Hypertension, Mental illness Review of Systems - Review of Systems Review of systems:: pertinent systems reviewed and negative unless documented below (14 point review of systems performed, pertinent positives and negatives as per HPI) - *Neurologic Reports tingling/numbness/burning sensations (in bilateral feet, off and on worse ) Meds Home Medications Medication Instructions Recorded Confirmed Type albuterol sulfate 90 mcg/actuation 2 puff INHALATION QID PRN 02/01/18 05/29/21 History aerosol inhaler fluticasone propionate 50 1 spray INTRANASAL DAILY 02/01/18 05/30/21 History mcg/actuation nasal spray,suspension venlafaxine 150 mg 150 mg PO DAILY cap 03/22/20 05/29/21 History capsule,extended release 24 hr Cyclobenzaprine HCl [Flexeril 10mg 10 mg PO Q8HP PRN #20 tab 05/29/21 Rx tablet] Metoprolol Tartrate 50 mg PO BID 05/29/21 05/30/21 History Spironolactone [Spironolactone 25 mg PO DAILY 05/29/21 05/30/21 History 25mg Tablet] Atorvastatin C
[2021-05-30 07:10] LABS: Basophils # 0.1 K/mm3 (0-0.2); Basophils % 0.6 % (0.1-2.0); Eosinophils # 0.2 K/mm3 (0.0-0.4); Eosinophils % 2.1 % (0.1-12.0); Hematocrit 34.4 % (37.0-47.0); Hemoglobin 11.1 g/dL (12.2-16.2); Lymphocytes # 1.7 K/mm3 (0.7-4.5); Lymphocytes % 20.5 % (10-50); Mean Corpuscular HGB Conc 32.3 g/dL (31.8-35.4); Mean Corpuscular Hemoglobin 31.6 pg (27.0-31.2); Mean Corpuscular Volume 97.8 fl (81-99); Mean Platelet Volume 10.1 fl (7.4-10.4); Monocytes # 0.5 K/mm3 (0.1-1.0); Monocytes % 5.9 % (1.7-9.3); Neutrophils # 5.8 K/mm3 (1.8-7.8); Neutrophils % 70.9 % (37.0-80.0); Platelet Count 300 K/mm3 (142-424); Red Blood Count 3.52 M/mm3 (4.20-5.40); Red Cell Distribution Width 14.3 % (11.5-17.5); White Blood Count 8.1 K/mm3 (4.8-10.8)
[2021-05-30 07:20] LABS: Anion Gap 11.6 mEq/L (5-15); Blood Urea Nitrogen 36 mg/dl (7-17); Calcium 8.9 mg/dl (8.4-10.2); Carbon Dioxide 26 mmol/L (22.0-30.0); Chloride 102 mmol/L (98-107); Creatinine Clearance Estimated 31 mL/min (50-200); Estimated Glomerular Filt Rate 16 ml/min (>60); GFR (African American) 19 ML/MIN (>60); Glucose 85 mg/dl (74-100); Lactic Acid 0.7 mmol/L (0.7-2.1); Potassium 3.6 mmoL/L (3.5-5.1); Sodium 136 mmol/L (136-145)
--- NOTE | 2021-05-30 07:20 | P.CONPHA_ITS ---
[facility] Pharmacy VTE Monitoring - Patient Demographics Admission date: 05/30/21 Report Date: 05/30/21 Time: 07:20 Allergies/Adverse Reactions: Patient Allergies meperidine Allergy (Severe, Verified 11/21/20 14:00) X-[id number]/THROAT Penicillins Allergy (Severe, Verified 11/21/20 14:00) R-[id number]/THROAT codeine Adverse Reaction (Mild, Verified 11/21/20 14:00) Height: 1.63 m Weight: 83.915 kg Patient Problems: Current Active Problems (Last Updated 11/21/20 @ 14:19 by Sayda Onofre RN) Muscle spasm (Acute) Acute renal failure (Acute) Coagulopathy (Acute) H/O mitral valve replacement with mechanical valve (Chronic) HTN (hypertension) (Chronic) Mitral valve regurgitation (Acute) - VTE Risk Labs: VTE Related Lab Results Hgb 11.1 g/dL (12.2-16.2) L 05/30/21 07:00 Hct 34.4 % (37.0-47.0) L 05/30/21 07:00 Plt Count 300 K/mm3 (142-424) 05/30/21 07:00 PT 90.0 seconds (10.1-12.5) H 05/29/21 17:06 INR 8.00 (0.9-1.1) H 05/29/21 17:06 BUN 31 mg/dl (7-17) H 05/29/21 15:24 Creatinine 2.00 mg/dl (0.52-1.04) H 05/29/21 15:24 Estimated Creat Clear 50 mL/min (50-200) 05/29/21 15:24 Was VTE Risk Assessment Performed: Yes VTE Score: 4 VTE Risk Level: Low Risk Clinical Trial Participant: No - Prophylaxis VTE Prophylaxis Ordered?: Yes Types of VTE Prophylaxis: TEDS Knee High
[2021-05-30 07:33] VITALS: BP 111/53; PULSE 85; RESP 24; TEMP 37; O2SAT 92
[2021-05-30 08:10] LABS: INR 1.75 (0.9-1.1)
[2021-05-30 14:07] VITALS: BMI 31.6
--- NOTE | 2021-05-30 14:20 | HMH.ORTHOCON ---
*Admission Date: 05/30/21 *Reason for consult:: Hematoma left leg *History of present illness: Ms. Carvalho is a 41-year-old female with history of mechanical mitral valve replacement, ASD repair, chronic anticoagulation with Coumadin, asthma, and obesity who presented to the ER yesterday afternoon with acute left lower extremity pain. States pain began within 1 to 2 days of presenting to the ER. Denies any known trauma. She localizes the pain predominantly to left calf. Patient says she has not taken anything for it as she did not have anything at home to take. Pain is tight and pressure-like in character. Having a hard time walking on her leg. When patient presented to the ER, on initial assessment, patient found to have raised tissue process in the posterior compartment of the leg with an ACS delta pressure of more than 30 mmHg. An INR of 8, creatinine of 2 (baseline 1), and imaging/CT of left leg was obtained. Per ED note she continued to have pulses in her left lower extremity. Due to concern for patient's continued tense left lower extremity, Olu pressure in the posterior compartments of the calf was assessed and patient pressure was elevated at 26 and 28 when assessed. This ordered a CT to assess for traumatic hemarthrosis. Patient had CT had a myofascial tear between the medial gastrohead and the medial soleus, patient had intramuscular hematoma. Patient was given vitamin K, warfarin was held, orthopedics consulted, and patient admitted to medicine for further management. Attempt made to transfer out of concern for possible compartment syndrome however given pressure readings and inability to transfer to due to bed status, patient seen this morning on [facility]. Was given a dose of Toradol for her pain overnight. Reviewed labs from this morning which showed worsening kidney function with creatinine of 3.2. INR this morning improved to 1.75 She c/o some throat tightness. Denies chest pain, shortness of breath, abdominal pain nausea or vomiting. The above is per medical H&P by Dr. Boykin Patient says her pain is a lot better compared to yesterday. As per the RN patient only requested for pain medication once this morning. [facility] History I have reviewed the patient's past medical history: Yes Medical History: Reports:: Anxiety, Depression, Gastroesophageal Reflux Disease(GERD), Heart Murmur, Hypertension, Valvular Heart Disease Denies:: Cancer, Diabetes Mellitus Type 1, Diabetes Mellitus Type 2, Internal Pacemaker, MRSA, Seizures *Have you ever received a pneumonia vaccine?: No *Have you received a flu vaccine this season?: No Other Medical History: Reports: Anemia Other Surgeries: Yes: Cardiac Catheterization, Cardiac Surgery, Cholecystectomy, Hysterectomy-Total. No: Pacemaker Amputation: No Fractures: No - *Social History Last grade of school completed: 9th or 10th Smoking Status: Current every day smoker Tobacco Type: cigarettes # Packs/Day (cigarettes): 1 #Yrs smoked (if former smoker): 26 Alcohol Intake: never Alcohol Intake Frequency:: other Substance Use Type: denies use *Occupational Status:: employed Housing: house Household Members: family, children *Travel in the last 8 weeks: None - Psychiatric History Pschychiatric History:: Reports:: Anxiety, Depression Family Hx:: Asthma, Diabetes, Hyperlipidemia, Hypertension, Mental illness Review of Systems - Review of Systems Review of systems:: pertinent systems reviewed and negative unless documented below - Constitutional Denies chills, Denies fever(s) - Eyes Denies change in vision - ENT Denies abnormal hearing, Denies bleeding gums, Denies difficulty swallowing - *Cardiovascular Reports leg pain with activity, Denies chest pain, Denies shortness of breath with activity - *Respiratory Denies chest congestion, Denies cough - *Gastrointestinal Denies abdominal pain, Denies change in bowel habits - *Musculoskeletal Reports abnormal walking, Report
[2021-05-30 14:48] LABS: Creatine Kinase 66 U/L (30-135)
[2021-05-30 15:32] VITALS: BP 103/65; PULSE 79; RESP 20; TEMP 36.4; O2SAT 100
[2021-05-30 18:08] LABS: Chloride 98 mmol/L (98-107)
[2021-05-30 18:09] LABS: Potassium 3.3 mmoL/L (3.5-5.1); Sodium 137 mmol/L (136-145)
[2021-05-30 18:12] LABS: Anion Gap 12.3 mEq/L (5-15); Blood Urea Nitrogen 37 mg/dl (7-17); Calcium 8.7 mg/dl (8.4-10.2); Carbon Dioxide 30 mmol/L (22.0-30.0); Creatinine Clearance Estimated 29 mL/min (50-200); Estimated Glomerular Filt Rate 15 ml/min (>60); GFR (African American) 18 ML/MIN (>60); Glucose 98 mg/dl (74-100)
[2021-05-30 20:00] VITALS: BP 100/52; PULSE 84; RESP 18; TEMP 36.7; O2SAT 93
[2021-05-31] VITALS (19 sets, daily range): BP systolic 94–119; BP diastolic 51–65; PULSE 76–104; RESP 14–20; TEMP 36.4–43; O2SAT 91–98; BMI 34.3
--- NOTE | 2021-05-31 06:49 | PC.NURSE ---
Received call from Dr Freedman requesting that the OR team be paged for emergent faschiotomy of the LLE
--- NOTE | 2021-05-31 06:50 | PC.NURSE ---
OR team and Anesthesia paged at this time
--- NOTE | 2021-05-31 06:50 | PC.NURSE ---
Received return call from DAWSON Chin at this time. Informed him of the proposed procedure, and that it was emergent.
--- NOTE | 2021-05-31 06:50 | HMH.ORTHPN ---
Subjective Date: 05/31/21 Time: 06:51 Interval history: Worsening numbness overnight. Persistent pain. PN: Obj Ex Vital signs: Temp Pulse Resp BP Pulse Ox 98.3 F 83 20 94/61 L 93 L 05/31/21 04:00 05/31/21 04:00 05/31/21 04:00 05/31/21 04:00 05/31/21 04:00 - Constitutional mild distress, moderate distress - Routine Respiratory Exam Absent: accessory muscle use, respiratory distress - Routine Cardiovascular Exam Present: RRR - Detailed Lower Extremity Exam Lower leg: Left swelling (Compartments tense, diminished sensation DP/SP/tibial/sural/saphenous nerve distribution. Pain with passive stretch with ankle and toe dorsiflexion.), Left tenderness Progress Note: A&P (1) Gastrocnemius muscle tear Status: Acute Assessment and plan: 41-year-old female with gastrocnemius muscle tear, hematoma, worsening paresthesias, pain with passive stretch consistent with compartment syndrome. Her symptoms have been going on for 3 days. She has motor function intact. At this point I think this is not late missed compartment syndrome but more of an evolving compartment syndrome. Her INR is improved. Her renal function is poor suggestive of acute injury secondary to muscle necrosis. I think she would potentially develop worsening myonecrosis which would cause further kidney failure if left untreated. As such, I have recommended left leg 4 compartment fasciotomy. She is amenable with the plan. We discussed the risk and benefits of surgery. Risks included but were not limited to pain, bleeding, infection, damage to adjacent structures, need for further surgery, wound healing complications, loss of limb, . Patient expressed verbal consent and written consent was obtained for the above procedure. (2) Acute renal failure Status: Acute (3) Coagulopathy Status: Acute (4) Mitral valve regurgitation Status: Chronic (5) H/O mitral valve replacement with mechanical valve Status: Chronic (6) HTN (hypertension) Status: Chronic (7) Obesity (BMI 30.0-34.9) Status: Chronic
--- NOTE | 2021-05-31 06:53 | PC.NURSE ---
Received return call from DANIELLE Renteria - informed her of proposed emergent procedure.
--- NOTE | 2021-05-31 06:54 | PC.NURSE ---
Received return call from MASON Goldman - informed her of proposed emergent procedure.
[2021-05-31 07:32] LABS: INR 1.37 (0.9-1.1); Prothrombin Time 15.1 seconds (10.1-12.5)
[2021-05-31 07:33] LABS: Basophils # 0.1 K/mm3 (0-0.2); Eosinophils # 0.2 K/mm3 (0.0-0.4); Eosinophils % 3.4 % (0.1-12.0); Hematocrit 30.3 % (37.0-47.0); Hemoglobin 9.6 g/dL (12.2-16.2); Lymphocytes # 1.9 K/mm3 (0.7-4.5); Lymphocytes % 33.6 % (10-50); Mean Corpuscular HGB Conc 31.7 g/dL (31.8-35.4); Mean Corpuscular Hemoglobin 31.4 pg (27.0-31.2); Mean Corpuscular Volume 98.9 fl (81-99); Mean Platelet Volume 10.6 fl (7.4-10.4); Monocytes # 0.4 K/mm3 (0.1-1.0); Monocytes % 6.3 % (1.7-9.3); Neutrophils # 3.2 K/mm3 (1.8-7.8); Neutrophils % 55.6 % (37.0-80.0); Platelet Count 261 K/mm3 (142-424); Red Blood Count 3.07 M/mm3 (4.20-5.40); Red Cell Distribution Width 14.5 % (11.5-17.5); White Blood Count 5.8 K/mm3 (4.8-10.8)
[2021-05-31 07:40] LABS: Alanine Aminotransferase 79 U/L (12-78); Albumin Level 3.7 g/dl (3.5-5.0); Albumin/Globulin Ratio 1.2 (1.1-1.8); Alkaline Phosphatase 133 U/L (38-126); Anion Gap 9.6 mEq/L (5-15); Aspartate Amino Transferase 143 U/L (14-36); Bilirubin,Total 0.9 mg/dl (0.2-1.3); Blood Urea Nitrogen 36 mg/dl (7-17); Calcium 8.8 mg/dl (8.4-10.2); Carbon Dioxide 27 mmol/L (22.0-30.0); Chloride 102 mmol/L (98-107); Creatinine Clearance Estimated 36 mL/min (50-200); Estimated Glomerular Filt Rate 17 ml/min (>60); GFR (African American) 21 ML/MIN (>60); Globulin 3.2 g/dL (1.3-3.2); Glucose 94 mg/dl (74-100); Magnesium 1.7 mg/dl (1.6-2.3); Potassium 3.6 mmoL/L (3.5-5.1); Sodium 135 mmol/L (136-145); Total Protein,Serum 6.9 g/dl (6.3-8.2)
--- NOTE | 2021-05-31 07:58 | HMH.ACPN2 ---
Internal Medicine - PN: Subj *Date: 05/31/21 *Time: 13:04 Interval history: Patient remained hemodynamically stable overnight. Reviewed labs from this morning, slight improvement in kidney function. Concern for decreased sensation in her left leg on exam this morning with orthopedics. Taken to the OR before I was able to examine her this morning. On exam after fasciotomy, leg tender, neurovascularly intact distal to calf. Afebrile. Flat affect on exam. Denies any nausea or chest pain. Exam Vital signs and Labs for Last 24 Hours: Temp Pulse Resp BP Pulse Ox 98.4 F 87 20 94/60 L 94 L 05/31/21 07:05 05/31/21 07:05 05/31/21 07:05 05/31/21 07:05 05/31/21 07:05 Laboratory Results - last 24 hr 05/30/21 07:39: PT 19.0 H, INR 1.75 H 05/30/21 14:35: Total Creatine Kinase 66 05/30/21 17:55: Sodium 137, Potassium 3.3 L, Chloride 98, Carbon Dioxide 30, Anion Gap 12.3, BUN 37 H, Creatinine 3.40 H, Estimated Creat Clear 29, Estimated GFR 15 L*, Est GFR ( Amer) 18 L*, Glucose 98, Calcium 8.7 05/31/21 07:01: WBC 5.8 D, RBC 3.07 L, Hgb 9.6 L, Hct 30.3 L, MCV 98.9, MCH 31.4 H, MCHC 31.7 L, RDW 14.5, Plt Count 261, MPV 10.6 H, Neut % (Auto) 55.6, Lymph % (Auto) 33.6, Roberts % (Auto) 6.3, Eos % (Auto) 3.4, Baso % (Auto) 1.0, Neut # (Auto) 3.2, Lymph # (Auto) 1.9, Roberts # (Auto) 0.4, Eos # (Auto) 0.2, Baso # (Auto) 0.1 05/31/21 07:01: Sodium 135 L, Potassium 3.6, Chloride 102, Carbon Dioxide 27, Anion Gap 9.6, BUN 36 H, Creatinine 3.00 H, Estimated Creat Clear 36, Estimated GFR 17 L*, Est GFR ( Amer) 21 L, Glucose 94, Calcium 8.8, Magnesium 1.7, Total Bilirubin 0.9, AST 143 H D, ALT 79 H D, Alkaline Phosphatase 133 H, Total Protein 6.9, Albumin 3.7, Globulin 3.2, Albumin/Globulin Ratio 1.2 I & O for Last 24 hours: Intake & Output 05/28/21 05/29/21 05/30/21 05/31/21 23:59 23:59 23:59 23:59 Intake Total 480 / 480 Balance 480 / 480 Weight 83.915 kg 84 kg 91.263 kg - Constitutional no acute distress, obese - *Routine HEENT Exam Head: Present: normocephalic Eye: Present: EOMI, PERRL ENT: Present: mucous membranes moist - *Routine Neck Exam Present: supple. Absent: lymphadenopathy - *Routine Respiratory Exam Present: CTA bilaterally - *Routine Cardiovascular Exam Present: RRR - *Routine Abdominal Exam Present: soft, normoactive bowel sounds. Absent: tenderness - *Routine Extremities Exam Present: calf tenderness (Left calf). Absent: cyanosis, clubbing, edema Comments: 2 surgical incisions medial and lateral to tibia consistent with fasciotomy, bandage overlying, bandage on lateral incision bloody. - *Routine Skin Exam Present: warm. Absent: rash - *Routine Neurological Exam Present: alert, oriented X3 Assessment and Plan (1) Gastrocnemius muscle tear Status: Acute Category: Medical Code(s): S86.119A - Strain of other muscle(s) and tendon(s) of posterior muscle group at lower leg level, unspecified leg, initial encounter (2) Acute renal failure Status: Acute Category: Medical Code(s): N17.9 - Acute kidney failure, unspecified (3) Coagulopathy Status: Acute Category: Medical Code(s): D68.9 - Coagulation defect, unspecified (4) Mitral valve regurgitation Status: Chronic Qualifiers: Category: Medical Code(s): I34.0 - Nonrheumatic mitral (valve) insufficiency (5) H/O mitral valve replacement with mechanical valve Status: Chronic Category: Surgical Code(s): Z95.2 - Presence of prosthetic heart valve (6) HTN (hypertension) Status: Chronic Category: Medical Code(s): I10 - Essential (primary) hypertension (7) Obesity (BMI 30.0-34.9) Status: Chronic Category: Medical Code(s): E66.9 - Obesity, unspecified (8) Compartment syndrome of left lower extremity Status: Acute Category: Medical Code(s): T79.A22A - Traumatic compartment syndrome of left lower extremity, initial encounter - Assessment and plan all Dx Assessment and
--- NOTE | 2021-05-31 08:30 | P.PN_ITS ---
[facility] Anesthesia Checklist - Structural Data Admitted From: Inpatient Planned Operative Procedure/s: fasciotomy lle Consent for Planned Operative Procedure(s) Verified: Yes - Additional verifications Anesthesia Reactions: No Hx Blood Transfusions: No - Airway Assessment C-Spine Mobility Assessed: Yes TMJ Mobility Assessed: Yes Dentition: Edentulous - Neurological Assessment Level of Consciousness: Awake, Alert, Appropriate - Anesthesia Plan Anesthesia Risk discussed: Yes Anesthesia Plan: Verified ASA Class: III Anesthesia Type: General [facility] History I have reviewed the patient's past medical history: Yes Medical History: Reports:: Anxiety, Depression, Gastroesophageal Reflux Disease(GERD), Heart Murmur, Hypertension, Valvular Heart Disease Denies:: Cancer, Diabetes Mellitus Type 1, Diabetes Mellitus Type 2, Internal Pacemaker, MRSA, Seizures *Have you ever received a pneumonia vaccine?: No *Have you received a flu vaccine this season?: No Other Medical History: Reports: Anemia Anesthesia experience/problems:: none Other Surgeries: Yes: Cardiac Catheterization, Cardiac Surgery, Cholecystectomy, Hysterectomy-Total. No: Pacemaker Amputation: No Fractures: No - *Social History Last grade of school completed: 9th or 10th Smoking Status: Current every day smoker Tobacco Type: cigarettes # Packs/Day (cigarettes): 1 #Yrs smoked (if former smoker): 26 Alcohol Intake: never Alcohol Intake Frequency:: other Substance Use Type: denies use *Occupational Status:: employed Housing: house Household Members: family, children *Travel in the last 8 weeks: None - Psychiatric History Pschychiatric History:: Reports:: Anxiety, Depression Family Hx:: Asthma, Diabetes, Hyperlipidemia, Hypertension, Mental illness
--- NOTE | 2021-05-31 08:42 | P.OP_ITS ---
Date of procedure: 05/31/21 Pre-op Diagnosis:: Left leg compartment syndrome Post-op Diagnosis:: Same Procedure performed:: Left leg 4 compartment fasciotomy 51113 Surgeon:: Reuben Freedman JR, MD BLUEPRINTING MACHINE OPERATOR:: Jose A Zamudio Anesthesia: GETA Estimated blood loss (mL): 30 Operative findings:: Healthy appearing reactive muscles in the deep posterior, anterior, lateral compartments. Dusky but reactive muscle in the superficial posterior compartment Operative note:: 41-year-old female with hypertherapeutic INR, medial gastroc intramuscular hematoma. Her INR was 8. Compartment pressures were below 30. She developed worsening paresthesias over the past 12 hours, had significant pain with passive ankle dorsiflexion and great toe and lesser toe dorsiflexion concerning for developing compartment syndrome in her deep and superficial posterior compartments. The entire leg was tense. I recommended left leg 4 compartment fasciotomy. She was amenable with the plan. We discussed the risk and benefits of surgery. Risks included but were not limited to pain, bleeding, infection, damage to adjacent structures, need for further surgery, wound healing complications, loss of limb, . Patient expressed verbal consent and written consent was obtained for the above procedure. Patient was identified in preoperative holding. Operative site was marked in indelible ink. History, physical, consent were reviewed and updated. Patient was surrendered to the anesthesia team, taken to the operative suite, placed supine on a well-padded operative table. Ipsilateral hip bump was placed as was a nonsterile thigh tourniquet. Anesthesia was induced. The operative extremity was prepped and draped in the usual sterile fashion. The operative team donned sterile gowns and gloves and a timeout was called. All in attendance agreed regarding the patient's identity, procedure, operative site. Weight-based dose of antibiotics was given prior to incision. I made a lateral incision longitudinally split in the distal between the fibula and anterior crest of the tibia. I dissected through skin and subcutaneous tissue, identified fascia and the intermuscular septum. I made longitudinal fasciotomies of the lateral and anterior compartments respectively care taken to avoid injuring the superficial peroneal nerve. The tibialis anterior and peroneal musculature appeared healthy, was reactive to Bovie electrocautery. Made a medial incision 2 cm posterior to the palpable medial tibial edge. I dissected through skin and subcutaneous tissue with care taken to avoid injuring the saphenous nerve and vein. I pierced the superficial fascia, noted dusky appearing dark gastrocnemius muscle tissue. This was reactive to Bovie electrocautery. I carried my dissection more distally, raised the fascial attachment from the posterior medial edge of the tibia to gain access to the deep posterior compartment. This musculature was healthy-appearing and reactive to Bovie electrocautery. The musculature, particularly medially, bulged through the fascia. The skin was able to be approximated tension-free. As such, I took down the tourniquet, achieved hemostasis, closed the skin with 2-0 Vicryl and abdirashid. Sterile dressings applied. Counts were correct x2. There were no apparent complications. I was present and scrubbed for the entire case. Tourniquet time (min): 13 Condition: stable Disposition: PACU Complications:: None
--- NOTE | 2021-05-31 08:52 | HMH.ORTHPN ---
Subjective Date: 05/31/21 Time: 08:52 Interval history: Status post 4 compartment fasciotomy. PN: Obj Ex Vital signs: Temp Pulse Resp BP Pulse Ox 98.4 F 87 20 94/60 L 94 L 05/31/21 07:05 05/31/21 07:05 05/31/21 07:05 05/31/21 07:05 05/31/21 07:30 Progress Note: A&P (1) Gastrocnemius muscle tear Status: Acute Assessment and plan: Status post 4 compartment fasciotomy left lower extremity. If possible, maintain INR below 1.4 for 72 hours if clinically safe to do so given heart valve. (2) Acute renal failure Status: Acute (3) Coagulopathy Status: Acute (4) Mitral valve regurgitation Status: Chronic (5) H/O mitral valve replacement with mechanical valve Status: Chronic (6) HTN (hypertension) Status: Chronic (7) Obesity (BMI 30.0-34.9) Status: Chronic
--- NOTE | 2021-05-31 09:19 | PC.NURSE ---
Pt is back from surgery
--- NOTE | 2021-05-31 11:00 | HMH.PTEV ---
Physical Therapy Evaluation Rehab PT IP Evaluation Start: 05/31/21 08:50 Freq: ONCE Status: Active Protocol: Document 05/31/21 10:48 [email or web address] (Rec: 05/31/21 10:59 GLADIS [id number]) Subjective/History History History Patient is a 41 year old female admitted to [facility] 05/29/21 secondary to L distal lower extremity pain. Patient presented to ED where LE pulses were montiored. CT indicated medial gastroc/ soleus fascial tears. Pressure failed to normalize. She underwent LLE fasciotomy 05/31/21. Patient lives at home with her parents. Has to negotiate 1 flight of stairs to reach her bedroom. Subjective Subjective I have no pain right now. Rehab PT IP Eval Objective Appearance Patient Behavior Appropriate,Cooperative Patient Orientation Person,Place,Day of Week Difficulty following instructions none Speech Pattern Clear,Appropriate Ambulation Patient Able to Ambulate No Balance Sitting Balance Steady, safe Dynamic Sitting Balance Ability Normal Transfers Bed Transfer Ability Independent ROM All Extremities PT ROM Status WFL MMT All Extremities PT MMT WFL Rehab PT IP prob,goals,plan Problems Date of Evaluation: 05/31/21 PT IP Problems Transfers,Gait,Balance,Self care,Safety Rehab Potential Rehab Potential Good Equipment Needs Assistive Devices Rolling / Wheeled Walker Plan PT Intervention Plan Transfers,Gait,Balance,Self care,Safety,Therapeutic Exercise PT Plan Frequency BID Duration LOS Discharge Goals Sit to Stand Chair Transfer Ability Contact Guard/Hand Hold Ambulation Assistive Device Rolling Walker Ambulation Distance (feet) 20 Discharge Plan PT Discharge Plan Patient to be seen by PT LOS until determined medically stable to discharge to home. G -code Required No Eval Complexity Eval Charge Codes 08427 - High Complexity PHYSICIAN CERTIFICATION: I certify the specified therapy services for Debra Carvalho are required, authorized, and reviewed every 30 days.
[2021-05-31 19:04] LABS: Anion Gap 13.4 mEq/L (5-15); Blood Urea Nitrogen 36 mg/dl (7-17); Calcium 8.6 mg/dl (8.4-10.2); Carbon Dioxide 25 mmol/L (22.0-30.0); Chloride 101 mmol/L (98-107); Creatinine Clearance Estimated 34 mL/min (50-200); Estimated Glomerular Filt Rate 16 ml/min (>60); Potassium 4.4 mmoL/L (3.5-5.1); Sodium 135 mmol/L (136-145)
[2021-05-31 19:08] LABS: GFR (African American) 19 ML/MIN (>60); Glucose 203 mg/dl (74-100)
--- NOTE | 2021-06-01 01:03 | PC.WOUNDNOTE ---
dressing changed after noting bloody drainage on bed/pillow and dresing satruated. sterile 4x4 and tegaderm dressing applied to incision sites, adaptaptic left in place. noted staple line wound closure intact.
[2021-06-01 04:00] VITALS: BP 106/61; PULSE 90; RESP 18; TEMP 36.7; O2SAT 94
--- NOTE | 2021-06-01 04:59 | PC.NURSE ---
pt was awake most of the night, pt was rating pain 8 to 9 after morphine, po percocet given in which pt rested after, pt recived bolus of 500 LR as ordered, dressing changed x1 to incision sites after noting saturated blood tinged dressings. pt has history of diabetes and noted lab glucose 203 in which pt was eating and drinking high sugar and high carb items. pt with LLE elevated and +cap refill and pedal pulses noted.
[2021-06-01 05:00] VITALS: BMI 35.7
[2021-06-01 07:12] LABS: Basophils % 0.1 % (0.1-2.0); Eosinophils % 0.2 % (0.1-12.0); Lymphocytes # 1.4 K/mm3 (0.7-4.5); Lymphocytes % 18.7 % (10-50); Mean Corpuscular HGB Conc 31.6 g/dL (31.8-35.4); Mean Corpuscular Hemoglobin 31.1 pg (27.0-31.2); Mean Corpuscular Volume 98.4 fl (81-99); Mean Platelet Volume 10.2 fl (7.4-10.4); Monocytes # 0.6 K/mm3 (0.1-1.0); Monocytes % 8.4 % (1.7-9.3); Neutrophils # 5.3 K/mm3 (1.8-7.8); Neutrophils % 72.6 % (37.0-80.0); Platelet Count 276 K/mm3 (142-424); Red Blood Count 2.64 M/mm3 (4.20-5.40); Red Cell Distribution Width 14.6 % (11.5-17.5); White Blood Count 7.2 K/mm3 (4.8-10.8)
[2021-06-01 07:13] LABS: Hematocrit 25.9 % (37.0-47.0); Hemoglobin 8.2 g/dL (12.2-16.2)
[2021-06-01 07:24] LABS: INR 1.94 (0.9-1.1); Prothrombin Time 20.9 seconds (10.1-12.5)
[2021-06-01 07:27] VITALS: BP 118/72; PULSE 90; RESP 16; TEMP 36.7; O2SAT 98
--- NOTE | 2021-06-01 07:56 | HMH.ACPN2 ---
Internal Medicine - PN: Subj *Date: 06/01/21 *Time: 08:35 Interval history: Overall stable this morning. No acute complaints. No nausea or vomiting. Afebrile. Hemodynamically stable. Status post 4 compartment fasciotomy yesterday. Reviewed labs this morning, INR of 1.4 from orthopedics. Holding warfarin. INR still above that goal however this morning. Continuing Lovenox. Hemoglobin with marginal drop, will continue to monitor closely for excessive blood loss and need for possible transfusion. Exam Vital signs and Labs for Last 24 Hours: Temp Pulse Resp BP Pulse Ox 98.1 F 90 16 118/72 98 06/01/21 07:27 06/01/21 07:27 06/01/21 07:27 06/01/21 07:27 06/01/21 07:27 Laboratory Results - last 24 hr 05/31/21 07:01: PT 15.1 H, INR 1.37 H 05/31/21 18:13: Sodium 135 L, Potassium 4.4 D, Chloride 101, Carbon Dioxide 25, Anion Gap 13.4, BUN 36 H, Creatinine 3.20 H, Estimated Creat Clear 34, Estimated GFR 16 L*, Est GFR ( Amer) 19 L*, Glucose 203 H D, Calcium 8.6 06/01/21 07:00: WBC 7.2, RBC 2.64 L, Hgb 8.2 L D, Hct 25.9 L, MCV 98.4, MCH 31.1, MCHC 31.6 L, RDW 14.6, Plt Count 276, MPV 10.2, Neut % (Auto) 72.6, Lymph % (Auto) 18.7, [place] % (Auto) 8.4, Eos % (Auto) 0.2, Baso % (Auto) 0.1, Neut # (Auto) 5.3, Lymph # (Auto) 1.4, [place] # (Auto) 0.6, Eos # (Auto) 0.0, Baso # (Auto) 0.0 06/01/21 07:00: PT 20.9 H, INR 1.94 H I & O for Last 24 hours: Intake & Output 05/29/21 05/30/21 05/31/21 06/01/21 23:59 23:59 23:59 22:59 Intake Total 480 / 480 600 / 720 2179 / 2179 Balance 480 / 480 600 / 720 2178 / 2178 Weight 83.915 kg 84 kg 91.263 kg 94.999 kg Narrative: - Constitutional no acute distress, obese - *Routine HEENT Exam Head: Present: normocephalic Eye: Present: EOMI, PERRL ENT: Present: mucous membranes moist - *Routine Neck Exam Present: supple. Absent: lymphadenopathy - *Routine Respiratory Exam Present: CTA bilaterally - *Routine Cardiovascular Exam Present: RRR - *Routine Abdominal Exam Present: soft, normoactive bowel sounds. Absent: tenderness - *Routine Extremities Exam Present: calf tenderness (Left calf). Absent: cyanosis, clubbing, edema Comments: 2 surgical incisions medial and lateral to tibia consistent with fasciotomy, bandage overlying, bandage on lateral incision bloody. - *Routine Skin Exam Present: warm. Absent: rash - *Routine Neurological Exam Present: alert, oriented X3 Assessment and Plan (1) Gastrocnemius muscle tear Status: Acute Category: Medical Code(s): S86.119A - Strain of other muscle(s) and tendon(s) of posterior muscle group at lower leg level, unspecified leg, initial encounter (2) Acute renal failure Status: Acute Category: Medical Code(s): N17.9 - Acute kidney failure, unspecified (3) Coagulopathy Status: Acute Category: Medical Code(s): D68.9 - Coagulation defect, unspecified (4) Mitral valve regurgitation Status: Chronic Qualifiers: Category: Medical Code(s): I34.0 - Nonrheumatic mitral (valve) insufficiency (5) H/O mitral valve replacement with mechanical valve Status: Chronic Category: Surgical Code(s): Z95.2 - Presence of prosthetic heart valve (6) HTN (hypertension) Status: Chronic Category: Medical Code(s): I10 - Essential (primary) hypertension (7) Obesity (BMI 30.0-34.9) Status: Chronic Category: Medical Code(s): E66.9 - Obesity, unspecified (8) Compartment syndrome of left lower extremity Status: Acute Category: Medical Code(s): T79.A22A - Traumatic compartment syndrome of left lower extremity, initial encounter - Assessment and plan all Dx Assessment and Plan for all problems:: 41-year-old female on Coumadin for mechanical heart valve who presents with left leg pain. Found to have myofascial tear, hematoma, and clinical suspicion for compartment syndrome. S/p 4 compartment fasciotomy. INR this morning remains less than 2, goal from Ortho <1.4. Holding war
--- NOTE | 2021-06-01 07:56 | HMH.ORTHPN ---
Subjective Date: 06/01/21 Time: 07:56 Interval history: Pain tolerable. She has had bloody oozing from her dressings. She reports that her numbness in her foot is resolved. Her pain is improved compared to yesterday. PN: Obj Ex Vital signs: Temp Pulse Resp BP Pulse Ox 98.1 F 90 16 118/72 98 06/01/21 07:27 06/01/21 07:27 06/01/21 07:27 06/01/21 07:27 06/01/21 07:27 - Constitutional no acute distress - Routine Respiratory Exam Absent: accessory muscle use, respiratory distress - Routine Cardiovascular Exam Present: RRR - Detailed Lower Extremity Exam Lower leg: Left wound (Incisions well approximated, sanguinous drainage. I change the dressing, applied 4 x 4 dressing and Balaji wrap loosely. She has no pain with passive stretch of her great toe or lesser toes. She has mild pain with passive stretch of her ankle which is localized to the medial gastroc.) Progress Note: A&P (1) Gastrocnemius muscle tear Status: Acute Assessment and plan: 41-year-old female with gastrocnemius tear, intramuscular hematoma, compartment syndrome status post 4 compartment fasciotomy. Her exam is significantly improved. Her sensation is intact x5 to the left foot today. She has no pain with passive stretch of the great toe or lesser toes where she did preoperatively. She says overall her pain is improved. Dry dressing changes as needed. 23 hours antibiotics. PT/OT. 2-week follow-up for wound check. (2) Acute renal failure Status: Acute (3) Coagulopathy Status: Acute (4) Mitral valve regurgitation Status: Chronic (5) H/O mitral valve replacement with mechanical valve Status: Chronic (6) HTN (hypertension) Status: Chronic (7) Obesity (BMI 30.0-34.9) Status: Chronic (8) Compartment syndrome of left lower extremity Status: Acute
[2021-06-01 08:07] LABS: Alanine Aminotransferase 51 U/L (12-78); Albumin Level 3.3 g/dl (3.5-5.0); Alkaline Phosphatase 120 U/L (38-126); Anion Gap 12.8 mEq/L (5-15); Aspartate Amino Transferase 98 U/L (14-36); Bilirubin,Total 0.6 mg/dl (0.2-1.3); Blood Urea Nitrogen 39 mg/dl (7-17); Calcium 8.7 mg/dl (8.4-10.2); Carbon Dioxide 28 mmol/L (22.0-30.0); Chloride 103 mmol/L (98-107); Creatinine Clearance Estimated 39 mL/min (50-200); Estimated Glomerular Filt Rate 18 ml/min (>60); GFR (African American) 22 ML/MIN (>60); Globulin 3.3 g/dL (1.3-3.2); Glucose 77 mg/dl (74-100); Potassium 4.8 mmoL/L (3.5-5.1); Sodium 139 mmol/L (136-145); Total Protein,Serum 6.6 g/dl (6.3-8.2)
--- NOTE | 2021-06-01 10:50 | PC.NURSE ---
unable to sign off LR from this am. contacted [facility]. 500ml bolus given
[2021-06-01 15:08] VITALS: BP 99/56; PULSE 60; RESP 18; TEMP 36.8; O2SAT 97
--- NOTE | 2021-06-01 17:59 | PC.NURSE ---
pt has been up through out the shift. Denies pain @ this time. She is alert and oriented. pulses to left foot are palpable and limb is warm.
[2021-06-01 18:18] LABS: Chloride 102 mmol/L (98-107); Potassium 4.7 mmoL/L (3.5-5.1); Sodium 139 mmol/L (136-145)
[2021-06-01 18:21] LABS: Anion Gap 13.7 mEq/L (5-15); Blood Urea Nitrogen 42 mg/dl (7-17); Carbon Dioxide 28 mmol/L (22.0-30.0); Creatinine Clearance Estimated 43 mL/min (50-200); Estimated Glomerular Filt Rate 20 ml/min (>60); GFR (African American) 25 ML/MIN (>60)
[2021-06-01 18:22] LABS: Glucose 98 mg/dl (74-100)
[2021-06-01 18:28] LABS: Hematocrit 24.6 % (37.0-47.0); Hemoglobin 7.8 g/dL (12.2-16.2)
[2021-06-01 18:55] VITALS: BP 103/58; PULSE 65
--- NOTE | 2021-06-01 18:55 | PC.NURSE ---
paged legislative correspondent MD for h and h and hypotension
--- NOTE | 2021-06-01 19:11 | PC.NURSE ---
notified md of h and h and hypotension., will continue to monitor
[2021-06-01 19:21] VITALS: BP 115/67; PULSE 65; RESP 19; TEMP 36.7; O2SAT 97
[2021-06-01 20:00] VITALS: O2SAT 97
[2021-06-02] VITALS (27 sets, daily range): BP systolic 96–146; BP diastolic 56–97; PULSE 56–91; RESP 16–20; TEMP 36.3–36.8; O2SAT 94–100; BMI 35.2
[2021-06-02 06:46] LABS: Basophils # 0.1 K/mm3 (0-0.2); Basophils % 0.8 % (0.1-2.0); Eosinophils # 0.2 K/mm3 (0.0-0.4); Eosinophils % 2.1 % (0.1-12.0); Hematocrit 24.2 % (37.0-47.0); Hemoglobin 7.8 g/dL (12.2-16.2); Lymphocytes # 3.1 K/mm3 (0.7-4.5); Lymphocytes % 41.1 % (10-50); Mean Corpuscular HGB Conc 32.1 g/dL (31.8-35.4); Mean Corpuscular Hemoglobin 31.5 pg (27.0-31.2); Mean Corpuscular Volume 98.1 fl (81-99); Mean Platelet Volume 10.8 fl (7.4-10.4); Monocytes # 0.5 K/mm3 (0.1-1.0); Monocytes % 6.8 % (1.7-9.3); Neutrophils # 3.6 K/mm3 (1.8-7.8); Neutrophils % 49.2 % (37.0-80.0); Platelet Count 322 K/mm3 (142-424); Red Blood Count 2.46 M/mm3 (4.20-5.40); Red Cell Distribution Width 14.8 % (11.5-17.5); White Blood Count 7.4 K/mm3 (4.8-10.8)
[2021-06-02 07:00] LABS: Alanine Aminotransferase 285 U/L (12-78); Albumin Level 3.2 g/dl (3.5-5.0); Alkaline Phosphatase 98 U/L (38-126); Aspartate Amino Transferase 691 U/L (14-36); Bilirubin,Total 0.5 mg/dl (0.2-1.3); Blood Urea Nitrogen 46 mg/dl (7-17); Calcium 8.6 mg/dl (8.4-10.2); Carbon Dioxide 32 mmol/L (22.0-30.0); Chloride 104 mmol/L (98-107); Creatinine Clearance Estimated 48 mL/min (50-200); Estimated Glomerular Filt Rate 23 ml/min (>60); GFR (African American) 28 ML/MIN (>60); Globulin 3.1 g/dL (1.3-3.2); Glucose 69 mg/dl (74-100); Magnesium 1.7 mg/dl (1.6-2.3); Sodium 139 mmol/L (136-145); Total Protein,Serum 6.3 g/dl (6.3-8.2)
--- NOTE | 2021-06-02 08:23 | US_ITS ---
PROCEDURE: US LIVER CLINICAL INDICATION: eleveated LFT COMPARISON: No exams were available for comparison FINDINGS: PANCREAS: Unremarkable. No obvious mass or abnormal fluid collection. No ductal dilatation LIVER: No focal liver lesions demonstrated. Homogeneous echogenicity. No intrahepatic biliary ductal dilatation evident. There is appropriate direction of blood flow within a non dilated portal vein RIGHT KIDNEY: Prior cholecystectomy. Common bile duct is normal at 4 mm. GALLBLADDER: No gallstones, gallbladder wall thickening, pericholecystic fluid, or biliary dilatation. IMPRESSION: Prior cholecystectomy otherwise negative Dictated by: Rubin Terry MD 06/02/2021 18:01 Rubin Terry MD in [facility] 06/02/2021 18:01
--- NOTE | 2021-06-02 08:27 | HMH.ACPN2 ---
Internal Medicine - PN: Subj *Date: 06/02/21 *Time: 08:27 Interval history: Patient feels about the same. Leg hurts. Breathing is unchanged, no issues with abdominal pain or nausea or vomiting. Exam Vital signs and Labs for Last 24 Hours: Temp Pulse Resp BP Pulse Ox 98.3 F 67 16 110/71 97 06/02/21 07:31 06/02/21 07:31 06/02/21 07:31 06/02/21 07:31 06/02/21 07:31 Laboratory Results - last 24 hr 06/01/21 09:15: Blood Type A Positive, Antibody Screen Negative, Crossmatch (AHG) See Detail 06/01/21 18:06: Sodium 139, Potassium 4.7, Chloride 102, Carbon Dioxide 28, Anion Gap 13.7, BUN 42 H, Creatinine 2.60 H, Estimated Creat Clear 43, Estimated GFR 20 L, Est GFR ( Amer) 25 L, Glucose 98 D, Calcium 9.0 06/01/21 18:06: Hgb 7.8 L, Hct 24.6 L 06/02/21 06:15: WBC 7.4, RBC 2.46 L, Hgb 7.8 L, Hct 24.2 L, MCV 98.1, MCH 31.5 H, MCHC 32.1, RDW 14.8, Plt Count 322, MPV 10.8 H, Neut % (Auto) 49.2, Lymph % (Auto) 41.1, [place] % (Auto) 6.8, Eos % (Auto) 2.1, Baso % (Auto) 0.8, Neut # (Auto) 3.6, Lymph # (Auto) 3.1, [place] # (Auto) 0.5, Eos # (Auto) 0.2, Baso # (Auto) 0.1 06/02/21 06:15: Sodium 139, Potassium 5.0, Chloride 104, Carbon Dioxide 32 H, Anion Gap 8.0, BUN 46 H, Creatinine 2.30 H, Estimated Creat Clear 48, Estimated GFR 23 L, Est GFR ( Amer) 28 L, Glucose 69 L D, Calcium 8.6, Magnesium 1.7, Total Bilirubin 0.5, AST 691 H* D, ALT 285 H D, Alkaline Phosphatase 98, Total Protein 6.3, Albumin 3.2 L, Globulin 3.1, Albumin/Globulin Ratio 1.0 L I & O for Last 24 hours: Intake & Output 05/30/21 05/31/21 06/01/21 06/02/21 12:59 12:59 11:59 11:59 Intake Total 960 / 960 Balance 960 / 960 Weight 206 lb 3 oz Narrative: Alert, pleasant. Oriented. Lungs are clear, oropharynx clear. Heart rate regular. Abdomen soft and nontender. Extremity exam per orthopedics. Assessment and Plan (1) Gastrocnemius muscle tear Status: Acute Category: Medical Code(s): S86.119A - Strain of other muscle(s) and tendon(s) of posterior muscle group at lower leg level, unspecified leg, initial encounter (2) Acute renal failure Status: Acute Category: Medical Code(s): N17.9 - Acute kidney failure, unspecified (3) Coagulopathy Status: Acute Category: Medical Code(s): D68.9 - Coagulation defect, unspecified (4) Mitral valve regurgitation Status: Chronic Qualifiers: Category: Medical Code(s): I34.0 - Nonrheumatic mitral (valve) insufficiency (5) H/O mitral valve replacement with mechanical valve Status: Chronic Category: Surgical Code(s): Z95.2 - Presence of prosthetic heart valve (6) HTN (hypertension) Status: Chronic Category: Medical Code(s): I10 - Essential (primary) hypertension (7) Obesity (BMI 30.0-34.9) Status: Chronic Category: Medical Code(s): E66.9 - Obesity, unspecified (8) Compartment syndrome of left lower extremity Status: Acute Category: Medical Code(s): T79.A22A - Traumatic compartment syndrome of left lower extremity, initial encounter (9) Elevated LFTs Status: Acute Category: Medical Code(s): R79.89 - Other specified abnormal findings of blood chemistry - Assessment and plan all Dx Assessment and Plan for all problems:: Overall patient is stable clinically. Plan will be to continue current plan per orthopedics. Patient H&H below 8 g. Given ongoing bleeding will transfuse 2 units today. Elevated LFTs noted, no stigmata clinically. Check liver ultrasound, repeat tomorrow. Acute kidney injury is resolving.
[2021-06-02 09:36] LABS: INR 1.65 (0.9-1.1)
--- NOTE | 2021-06-02 10:34 | HMH.OTEV ---
OT Inpatient Evaluation Rehab OT IP Evaluation Start: 06/01/21 08:51 Freq: ONCE Status: Complete Protocol: Document 06/02/21 10:29 NOEMÍBERWICK (Rec: 06/02/21 10:34 [facility] [id number]) Rehab OT IP Assessment Subjective History Pt oriented x 3 on arrival. Pt agreeable to engage in therapy evaluation. Pt was admitted via ED on 05/29/21 due to Left LE pain and pressure. Pt has a past medical history of Anxiety, Depression , Gastroesophageal Reflux Disease(GERD), Heart Murmur, Hypertension, Valvular Heart Disease. Pt reports prior to being in the hosptial she lived with both her parents and 4 sons. Pt claims she was independent with all ADLs and IADLs. She did no require any AE during ambulation or ADLs. Subjective I could do anything I needed to. Objective Patient Orientation Person,Place,Birthday Upper Extremity Gross ROM WFL Bed Mobility bed mobility-scooting,bed mobility - supine/sit,bed mobility - rolling Assist Level Supervision/Stand by Transfer Training Sit/Stand/Pivot Transfer Assist Level Contact Guard/Hand Hold Rehab OT IP prob,goals,plan Problems Date of Evaluation: 06/02/21 OT IP Problems Bed Mobility,Transfers,Gait, Balance,Self care,Safety Rehab Potential Rehab Potential Good Equipment Needs Assistive Devices Rolling / Wheeled Walker Plan OT intervention Plan Bed Mobility,Transfers,Gait, Balance,Self care,Safety, Therapeutic Exercise OT Plan Frequency BID Duration LOS Discharge Goals Bed Mobility Ability Standby Assistance Sit to Stand Chair Transfer Ability Supervision/Stand by Chair Transfer Ability Supervision/Stand by Chair Transfer Technique Sit to/from Ambulatory Chair Transfer Assistive Devices Rolling Walker Lower Body Dressing Ability Standby Assistance Upper Body Dressing Ability Standby Assistance Bathing Ability Assistance x1 Performing Toilet Hygiene Ability Standby Assistance Overall Commode/Toilet Transfer Ability Standby Assistance
--- NOTE | 2021-06-02 11:20 | P.PN_ITS ---
[facility] Anesthesia Record Part II Discharge Time: 09:15 Destination: Medical Surgical Department PACU nurse assessment reviewed?: Yes Patient Condition:: Good Anesthesia Complications:: None Swallowing reflex intact?: Yes Cyanosis?: No Blood Pressure: 96/56 Pulse Rate: 91 Temperature: 97.9 F Mental Status: Alert & Oriented Pain level:: 0 Nausea and/or vomitting:: None Intake, IV Amount: 0
--- NOTE | 2021-06-02 11:37 | DIET.NUTRFU ---
PO intakes 50%, pt states no nutritional complaints/concerns. Weight up 4# t/o stay. Renal function improved.
--- NOTE | 2021-06-02 12:05 | PC.NURSE ---
1st unit of blood completed at this time. Pt show no s/s of blood transfusion reaction. Will continue to monitor.
--- NOTE | 2021-06-02 17:19 | PC.NURSE ---
Pt has done wlel this shift. VSS. Pt has been bradycardic at times. Pt has tolerated 2 units of blood transfusion well. No s/s of blood transfusion reactions. ZLLE dressing did need to be changed this shift d/t serosang drainage leaking through prior dressing. Pt was premedicated before dressing change and tolerated well. No other acute changes or complaints, will continue to monitor.
[2021-06-02 19:06] LABS: Hematocrit 30.6 % (37.0-47.0)
[2021-06-02 19:09] LABS: Hemoglobin 9.8 g/dL (12.2-16.2)
[2021-06-03] VITALS: BP 115/69; PULSE 62; RESP 18; TEMP 36.9; O2SAT 98
--- NOTE | 2021-06-03 03:53 | PC.NURSE ---
Changed pt's dressing on LLE X1 thus far in shift. pt tolerated well. Pt has c/o of pain x3 in left calf thus far in shift, admin meds per SEP.
[2021-06-03 04:00] VITALS: BP 113/78; PULSE 60; RESP 18; TEMP 36.6; O2SAT 97
[2021-06-03 05:00] VITALS: BMI 36.6
[2021-06-03 06:57] LABS: Basophils % 0.6 % (0.1-2.0); Eosinophils # 0.4 K/mm3 (0.0-0.4); Eosinophils % 5.6 % (0.1-12.0); Hematocrit 29.2 % (37.0-47.0); Hemoglobin 9.4 g/dL (12.2-16.2); Lymphocytes # 2.6 K/mm3 (0.7-4.5); Lymphocytes % 40.9 % (10-50); Mean Corpuscular HGB Conc 32.3 g/dL (31.8-35.4); Mean Corpuscular Hemoglobin 31.4 pg (27.0-31.2); Mean Corpuscular Volume 97.1 fl (81-99); Mean Platelet Volume 10.2 fl (7.4-10.4); Monocytes # 0.5 K/mm3 (0.1-1.0); Monocytes % 7.5 % (1.7-9.3); Neutrophils # 2.9 K/mm3 (1.8-7.8); Neutrophils % 45.4 % (37.0-80.0); Platelet Count 278 K/mm3 (142-424); Red Cell Distribution Width 15.1 % (11.5-17.5); White Blood Count 6.4 K/mm3 (4.8-10.8)
[2021-06-03 07:07] LABS: INR 1.33 (0.9-1.1); Prothrombin Time 14.7 seconds (10.1-12.5)
[2021-06-03 07:08] LABS: Alanine Aminotransferase 260 U/L (12-78); Albumin Level 3.4 g/dl (3.5-5.0); Albumin/Globulin Ratio 1.1 (1.1-1.8); Alkaline Phosphatase 126 U/L (38-126); Anion Gap 9.3 mEq/L (5-15); Aspartate Amino Transferase 497 U/L (14-36); Bilirubin,Total 0.7 mg/dl (0.2-1.3); Blood Urea Nitrogen 35 mg/dl (7-17); Carbon Dioxide 31 mmol/L (22.0-30.0); Chloride 103 mmol/L (98-107); Creatinine Clearance Estimated 72 mL/min (50-200); Estimated Glomerular Filt Rate 36 ml/min (>60); GFR (African American) 43 ML/MIN (>60); Globulin 3.1 g/dL (1.3-3.2); Glucose 88 mg/dl (74-100); Potassium 4.3 mmoL/L (3.5-5.1); Sodium 139 mmol/L (136-145); Total Protein,Serum 6.5 g/dl (6.3-8.2)
--- NOTE | 2021-06-03 07:31 | HMH.DCSUM ---
General - General Admission date:: 05/30/21 Discharge date: 06/03/21 HPI HPI: Ms. Carvalho is a 41-year-old female with history of mechanical mitral valve replacement, ASD repair, chronic anticoagulation with Coumadin, asthma, and obesity who presented to the ER last night with acute left lower extremity pain. States pain began within 1 to 2 days of presenting to the ER. Denies any known trauma. Pain prominent in the left calf. Has not taken anything for it as she did not have anything at home to take. Pain is tight and pressure-like in character. Having a hard time walking on her leg. On initial assessment, patient found to have an INR of 8, creatinine of 2 (baseline 1), and imaging/CT of left leg was obtained. Per ED note she continued to have pulses in her left lower extremity. Due to concern for patient's continued tense left lower extremity, [place] pressure in the posterior compartments of the calf was assessed and patient pressure was elevated at 26 and 28 when assessed. This ordered a CT to assess for traumatic hemarthrosis. Patient had CT had a myofascial tear between the medial gastrohead and the medial soleus, patient had intramuscular hematoma. Patient was given vitamin K, warfarin was held, orthopedics consulted, and patient admitted to medicine for further management. Attempt made to transfer out of concern for possible compartment syndrome however given pressure readings and inability to transfer to due to bed status, patient seen this morning on [facility]. Was given a dose of Toradol for her pain overnight. Reviewed labs from this morning which showed worsening kidney function with creatinine of 3.2. INR this morning improved to 1.75 She c/o some throat tightness. Denies chest pain, shortness of breath, abdominal pain nausea or vomiting. Hospital Course Hospital Course: 41-year-old female on Coumadin for mechanical heart valve who presents with left leg pain. Found to have myofascial tear, hematoma, and clinical suspicion for compartment syndrome. S/p 4 compartment fasciotomy. INR this morning remains less than 2, Continuing lovenox. Resuming warfarin. Problems addressed as follows. Myofascial tear Hematoma Compartment Syndrome, s/p fasciotomy - Orthopedics consulted, patient taken to the OR over the weekend for 4 compartment fasciotomy. Tolerated well. Having some mild bleeding from incisions (expected). -PT and OT assessed patient during admission, recommend home health for further management. Will also have home health consulted for wound care. -Pain control with oxycodone as ordered. - Will need follow-up with orthopedics in 2 weeks for wound check Coagulopathy Mechanical mitral valve -Patient on chronic anticoagulation with Coumadin. Goal INR of 2.5-3.5 given mechanical valve -Received vitamin K in the ER, INR remains less than 2 this morning. goal <1.4 for 72 hrs per Ortho. -We will bridge at this time with Lovenox 1 mg/kg twice daily and resume warfarin at time of discharge. Will need labs later this week to assess improvement in INR and liver function. Please obtain labs when sees PCP Acute kidney injury Elevated liver enzymes - Kidney function normal at 1 for baseline per chart review from 2020. Gradually improved over hospitalization with IV fluid resuscitation. Still above normal but better at 1.4. -Continue p.o. hydration. Pattern of intrinsic injury with BUN/Cr ratio 10-20 -Unclear etiology for elevation in liver enzymes other than possible hypoperfusion or medication effect. Gradually improving. Will need labs to monitor kidney function and transaminases later this week. -Caution with nephrotoxic's and hepatotoxic's. Avoiding NSAIDs and Tylenol at this time Examined on day of discharge. Medically stable for discharge home. Will be going home with her mother who will assist in her care. Home health consulted at time of discharge. Close follow-up in our office later this w
[2021-06-03 08:00] VITALS: BP 115/73; PULSE 55; RESP 16; TEMP 36.7; O2SAT 97
--- NOTE | 2021-06-03 08:37 | SW/DCPLANNER ---
Addendum entered by Jaqui Upton 06/03/21 10:19: Sara with [facility] stated that services will begin tomorrow for this patient. Original Note: This patient will discharge home today. I will set patient up with home health services thru [facility] for SN/PT/OT. Patient had no further questions at this time. I will follow up with [facility] once patient information is reviewed.
--- NOTE | 2021-06-03 12:39 | PC.NURSE ---
Patient ready for discharge to home
[2021-06-03 16:12] LABS: Myoglobin, Urine <2 ng/mL (0-13)
== END 2021-06-03 11:56 | disposition home health service (06) | DRG 982 ==
LOC: ER 18:29 → 2ND 05-30 10:53
PROVIDERS: Internal Medicine Adolescent Medicine; Orthopaedic Surgery; Admitting Provider Family Medicine; Emergency Provider Emergency Medicine; PCP Internal Medicine Adolescent Medicine; Visit Provider Internal Medicine Adolescent Medicine
PROC: 0KNT0ZZ Release Left Lower Leg Muscle, Open Approach (ICD-10-PCS; principal; 2021-05-31 08:00)
DX: T79.A22A Traumatic compartment syndrome of left lower extremity, initial encounter (principal); N17.9 Acute kidney failure, unspecified; S86.812A Strain of other muscle(s) and tendon(s) at lower leg level, left leg, initial encounter; X58.XXXA Exposure to other specified factors, initial encounter; Z95.2 Presence of prosthetic heart valve; Z95.5 Presence of coronary angioplasty implant and graft; S80.12XA Contusion of left lower leg, initial encounter; E66.9 Obesity, unspecified; Z68.36 Body mass index [BMI] 36.0-36.9, adult; F17.210 Nicotine dependence, cigarettes, uncomplicated; R79.1 Abnormal coagulation profile
CPT/HCPCS: 27602; 36415; 73700; 76705; 80048; 80053; 82550; 83605; 83735; 83874; 85014; 85018; 85025; 85610; 86850; 93971; 96365; 96375; 97110; 97116; 97163; 97166; 97530; 99284; C9803; J2405; P9016; U0003; U0005

== ENCOUNTER → 2021-06-06 18:10 | Outpatient (CLI) | payer OTHER, SELFPAY ==
[2021-06-06 18:58] LABS: Basophils # 0.1 K/mm3 (0-0.2); Basophils % 0.8 % (0.1-2.0); Eosinophils # 0.4 K/mm3 (0.0-0.4); Eosinophils % 3.6 % (0.1-12.0); Hematocrit 32.7 % (37.0-47.0); Hemoglobin 10.2 g/dL (12.2-16.2); INR 1.05 (0.9-1.1); Lymphocytes # 1.7 K/mm3 (0.7-4.5); Lymphocytes % 15.8 % (10-50); Mean Corpuscular HGB Conc 31.2 g/dL (31.8-35.4); Mean Corpuscular Hemoglobin 31.2 pg (27.0-31.2); Mean Corpuscular Volume 100.2 fl (81-99); Mean Platelet Volume 10.8 fl (7.4-10.4); Monocytes # 0.6 K/mm3 (0.1-1.0); Monocytes % 5.3 % (1.7-9.3); Neutrophils % 74.5 % (37.0-80.0); Platelet Count 473 K/mm3 (142-424); Prothrombin Time 11.8 seconds (10.1-12.5); Red Blood Count 3.26 M/mm3 (4.20-5.40); Red Cell Distribution Width 16.6 % (11.5-17.5); White Blood Count 10.7 K/mm3 (4.8-10.8)
[2021-06-06 22:39] LABS: Chloride 107 mmol/L (98-107); Potassium 4.7 mmoL/L (3.5-5.1); Sodium 139 mmol/L (136-145)
[2021-06-06 22:42] LABS: Alanine Aminotransferase 154 U/L (12-78); Albumin/Globulin Ratio 1.3 (1.1-1.8); Alkaline Phosphatase 125 U/L (38-126); Anion Gap 14.7 mEq/L (5-15); Aspartate Amino Transferase 77 U/L (14-36); Bilirubin,Total 0.5 mg/dl (0.2-1.3); Blood Urea Nitrogen 21 mg/dl (7-17); Calcium 9.7 mg/dl (8.4-10.2); Carbon Dioxide 22 mmol/L (22.0-30.0); Estimated Glomerular Filt Rate 45 ml/min (>60); GFR (African American) 55 ML/MIN (>60); Globulin 3.1 g/dL (1.3-3.2); Glucose 122 mg/dl (74-100); Total Protein,Serum 7.1 g/dl (6.3-8.2)
[2021-06-08 10:08] LABS: Hep A Ab, IgM Negative (Negative); Hepatitis B Core Antibody IgM Negative (Negative); Hepatitis B Surface Antigen Negative (Negative); Hepatitis C Antibody <0.1 s/co ratio (0.0-0.9)
== END ==
PROVIDERS: Visit Provider Nurse Practitioner Family
DX: R74.8 Abnormal levels of other serum enzymes (principal); D68.9 Coagulation defect, unspecified; T14.8XXA Other injury of unspecified body region, initial encounter
CPT/HCPCS: 80053; 80074; 85025; 85610

== ENCOUNTER → 2021-06-20 06:30 | Outpatient (CLI) | payer OTHER, SELFPAY ==
--- NOTE | 2021-06-20 06:35 | NM_ITS ---
APPROVED REPORT Exam: Nuclear Stress Test Indication: Chest pain, SOB, High cholesterol, Tobacco use, Family history, CAD, CABG Patient Location: Outpatient Stress Tech: Sneha Salas NM Tech:Angie Meyers, ARRT, RT (R)(N) Ht: 5 ft 4 in Wt: 198 lbs Bra Size: 34DDD HR: 75 bpm BP: 91/57 mmHg BSA: 1.95 m2 BMI: 33.9 History: Chest pain, SOB, High cholesterol, Tobacco use, Family history, CAD, CABG Procedure: Patient received a 0.4 mg of intravenous Lexiscan, resting heart rate 75 bpm, resting blood pressure 91/57 mmHg, with Lexiscan maximum heart rate achived was 98 bpm which is Less than 85 % of the maximum predicted heart rate and blood pressure was 103/52 mmHg. With Lexiscan, patient denied any complaint of chest pain. Electrocardiogram Resting electrocardiogram showed sinus rhythm, with Lexiscan there is less than 1.[address] segment depression noted from the baseline EKG. The EKG portion of the Lexiscan is nondiagnostic. Cardiac Stress and Resting SPECT Images: Cardiac Stress and Resting SPECT images were obtained using technetium 99m Myoview 31.2 mCi stress and 10.72 mCi at rest. Gated SPECT for analysis of segmental wall motion and calculation of the ejection fraction also done. Cardiac stress and resting SPECT images show uniform myocardial activity without segmental perfusion abnormality, computer derived ejection fraction is over 65% with no regional wall motion abnormality, right ventricle is normal size and contractility. There is transient ischemic dilatation of the left ventricle seen. Conclusion: 1. The EKG portion of the Lexiscan is nondiagnostic. 2. No scintigraphic evidence of reversible ischemia seen, computer derived ejection fraction is over 65% with no regional wall motion abnormality, right ventricle is normal size and contractility. There is transient ischemic dilatation of the left ventricle seen, raising the concerns for presence of balanced ischemia, other causes for transient ischemic dilatation includes hypertensive heart disease, microvascular disease, diabetes and elevated left ventricular end-diastolic pressure. Clinical correlation is recommended. 3. Abnormal Lexiscan Myoview study. Electronically signed by : Alexy Zaldivar MD 06/22/2021 10:02:42
--- NOTE | 2021-06-20 06:35 | CA_ITS ---
APPROVED REPORT Exam: Pharmacologic Technologist: Sneha Salas, Ht: 5 ft 4 in Wt: 192 lbs BSA: 1.92 m2 HR: 73 bpm BP: 91/57 mmHg Rhythm: NSR, T WAVE ABNS IN V2, I, AVL, LOW VOLTAGE QRS Medical History Medical History: HTN, Hyperlipidemia, Smoking Medications: Omeprazole,,,,, Warfarin,,,,, Metoprolol,,,,, Trazadone,,,,, Enoxaparin,,,,, Atorvastatin,,,,, Albuterol,,,,, FeNOfibrate,,,,, FluTICASONE,,,,, Cyclobenzaprine,,,,, Venlafaxine,,,,, Estrodiol,,,,, Allergies: MEPERIDINE, PENICILLIN, CODEINE Cardiac Risk Factors: HTN, Hyperlipidemia, FHX of CAD, Smoking Stress Test Details Test: LEXISCAN HR Resting HR: 75 bpm Max Heart Rate (APMHR): 180.306598 bpm Max HR Achieved: 98 bpm Target HR (85% APMHR): 153.245420 bpm % of APMHR: 54.44 Recovery HR: 78 bpm BP Resting BP: 91.0/57.0 mmHg Max BP: 103.0/52.0 mmHg Recovery BP: 90.0/50.0 mmHg ECG Resting ECG: NSR, T WAVE ABNS IN V2, I, AVL, LOW VOLTAGE QRS Clinical Exercise duration: 04:01 min Highest Stage Achieved: Exercise capacity: 1.0 METs Stress ECG Conclusion PT HAD SOA, LIGHT HEADEDNESS, DIZZY, AND MILD NAUSEA. NO CP. AMINOPHYLINE 100 MG SLOW IV GIVEN @ 1 MINUTE RECOVERY. PT FELT BETTER AT 3 MINUTE RECOVERY. SXS ALMOST GONE AT 6 MINUTE RECOVERY. NO SIGNIFICANT CHANGES. UNREMARKABLE LEXISCAN STRESS. MYOVIEW IMAGES REPORTED SEPARATELY. Electronically signed by : Alexy Zaldivar MD 06/22/2021 09:16:32
--- NOTE | 2021-06-20 08:26 | HMH.ITSHM ---
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 []VENLAFAXINE HYDROXYZNIE FLUTICASONE ESTRADIOL ALBUTEROL WARFARIN TRAZODONE OMEPRAZOLE METOPROLOL LISINOPRIL FENOFIBRATE LOVENOX FLEXERIL LIPIOTOR
== END ==
PROVIDERS: PCP Internal Medicine Adolescent Medicine; Visit Provider Urology
DX: R06.00 Dyspnea, unspecified (principal); R07.9 Chest pain, unspecified; R42 Dizziness and giddiness; K21.9 Gastro-esophageal reflux disease without esophagitis; F17.200 Nicotine dependence, unspecified, uncomplicated; Z95.2 Presence of prosthetic heart valve
CPT/HCPCS: 78452; 93017; 93306; A9502; J0280; J2785

== ENCOUNTER → 2021-06-26 17:53 | Outpatient (CLI) | payer OTHER, SELFPAY ==
[2021-06-26 18:23] LABS: Basophils # 0.1 K/mm3 (0-0.2); Basophils % 0.8 % (0.1-2.0); Eosinophils # 0.3 K/mm3 (0.0-0.4); Hematocrit 36.5 % (37.0-47.0); Hemoglobin 11.9 g/dL (12.2-16.2); Lymphocytes # 1.7 K/mm3 (0.7-4.5); Lymphocytes % 12.8 % (10-50); Mean Corpuscular HGB Conc 32.5 g/dL (31.8-35.4); Mean Corpuscular Hemoglobin 31.8 pg (27.0-31.2); Mean Platelet Volume 10.7 fl (7.4-10.4); Monocytes # 0.5 K/mm3 (0.1-1.0); Monocytes % 3.3 % (1.7-9.3); Neutrophils # 10.9 K/mm3 (1.8-7.8); Neutrophils % 81.1 % (37.0-80.0); Platelet Count 415 K/mm3 (142-424); Red Blood Count 3.73 M/mm3 (4.20-5.40); Red Cell Distribution Width 14.9 % (11.5-17.5); White Blood Count 13.4 K/mm3 (4.8-10.8)
[2021-06-26 19:06] LABS: Alanine Aminotransferase 36 U/L (12-78); Albumin Level 4.4 g/dl (3.5-5.0); Albumin/Globulin Ratio 1.3 (1.1-1.8); Alkaline Phosphatase 66 U/L (38-126); Anion Gap 14.4 mEq/L (5-15); Aspartate Amino Transferase 40 U/L (14-36); Bilirubin,Total 0.1 mg/dl (0.2-1.3); Blood Urea Nitrogen 40 mg/dl (7-17); Calcium 9.3 mg/dl (8.4-10.2); Carbon Dioxide 23 mmol/L (22.0-30.0); Chloride 103 mmol/L (98-107); Estimated Glomerular Filt Rate 38 ml/min (>60); GFR (African American) 47 ML/MIN (>60); Globulin 3.3 g/dL (1.3-3.2); Glucose 133 mg/dl (74-100); Potassium 4.4 mmoL/L (3.5-5.1); Sodium 136 mmol/L (136-145); Total Protein,Serum 7.7 g/dl (6.3-8.2)
[2021-06-26 19:17] LABS: INR 5.74 (0.9-1.1)
== END ==
PROVIDERS: Visit Provider Nurse Practitioner Family
DX: N17.9 Acute kidney failure, unspecified (principal); D68.9 Coagulation defect, unspecified; T14.8XXA Other injury of unspecified body region, initial encounter
CPT/HCPCS: 80053; 85025; 85610

== ENCOUNTER → 2021-08-01 12:38 | Outpatient (CLI) | payer OTHER, SELFPAY ==
[2021-08-01 12:56] LABS: Basophils # 0.1 K/mm3 (0-0.2); Basophils % 1.5 % (0.1-2.0); Eosinophils # 0.1 K/mm3 (0.0-0.4); Eosinophils % 2.2 % (0.1-12.0); Hematocrit 36.3 % (37.0-47.0); Hemoglobin 11.2 g/dL (12.2-16.2); Lymphocytes # 1.2 K/mm3 (0.7-4.5); Lymphocytes % 19.2 % (10-50); Mean Corpuscular HGB Conc 30.9 g/dL (31.8-35.4); Mean Corpuscular Hemoglobin 31.2 pg (27.0-31.2); Monocytes # 0.4 K/mm3 (0.1-1.0); Monocytes % 6.4 % (1.7-9.3); Neutrophils # 4.4 K/mm3 (1.8-7.8); Neutrophils % 70.7 % (37.0-80.0); Platelet Count 394 K/mm3 (142-424); Red Blood Count 3.59 M/mm3 (4.20-5.40); Red Cell Distribution Width 15.4 % (11.5-17.5); White Blood Count 6.2 K/mm3 (4.8-10.8)
[2021-08-01 13:06] LABS: Alanine Aminotransferase 33 U/L (12-78); Albumin Level 4.4 g/dl (3.5-5.0); Albumin/Globulin Ratio 1.3 (1.1-1.8); Alkaline Phosphatase 60 U/L (38-126); Anion Gap 12.9 mEq/L (5-15); Aspartate Amino Transferase 32 U/L (14-36); Bilirubin,Total 0.6 mg/dl (0.2-1.3); Blood Urea Nitrogen 10 mg/dl (7-17); Calcium 9.6 mg/dl (8.4-10.2); Carbon Dioxide 27 mmol/L (22.0-30.0); Chloride 107 mmol/L (98-107); Estimated Glomerular Filt Rate 55 ml/min (>60); GFR (African American) 67 ML/MIN (>60); Globulin 3.3 g/dL (1.3-3.2); Glucose 106 mg/dl (74-100); Potassium 3.9 mmoL/L (3.5-5.1); Sodium 143 mmol/L (136-145); Total Protein,Serum 7.7 g/dl (6.3-8.2)
[2021-08-01 13:19] LABS: Erythrocyte Sedimentation Rate 32 mm/hr (0-20)
== END ==
PROVIDERS: PCP Internal Medicine Adolescent Medicine; Visit Provider Orthopaedic Surgery
DX: L08.9 Local infection of the skin and subcutaneous tissue, unspecified (principal); T14.8XXA Other injury of unspecified body region, initial encounter
CPT/HCPCS: 36415; 80053; 85025; 85651; 86140

== ENCOUNTER → 2021-08-06 10:21 | Outpatient (CLI) | payer OTHER, SELFPAY ==
--- NOTE | 2021-08-06 10:22 | MR_ITS ---
FINAL REPORT CLINICAL HISTORY: s/p wound infection FINDINGS: Multiplanar MR imaging of the left lower leg was performed with and without contrast. There is no evidence of fracture, bone bruise or marrow edema. No bony mass is identified. There is a 6.2 x 2.6 x 1.5 cm peripherally enhancing collection in the left lateral lower subcutaneous tissues worrisome for an abscess or hematoma. The underlying musculature is intact. IMPRESSION: Peripherally enhancing collection in the subcutaneous tissues at the area of interest worrisome for an abscess or hematoma. Reviewed, Interpreted and Dictated by Bam Boucher III, MD Transcribed by Jimmy Mckeon Authenticated by Bam Boucher III, MD on 08/06/2021 12:44:37 PM [facility]
== END ==
PROVIDERS: PCP Internal Medicine Adolescent Medicine; Visit Provider Orthopaedic Surgery
DX: L08.9 Local infection of the skin and subcutaneous tissue, unspecified (principal); T14.8XXA Other injury of unspecified body region, initial encounter
CPT/HCPCS: 73720; A9576; C9803; U0003; U0005

== ENCOUNTER → 2021-08-06 12:04 | Outpatient (CLI) | payer OTHER, SELFPAY | PROVIDERS: PCP Internal Medicine Adolescent Medicine; Visit Provider Orthopaedic Surgery | DX: U07.1 COVID-19 (principal) | CPT/HCPCS: C9803; U0003; U0005 ==

== ENCOUNTER 2021-08-08 06:00 | Day surgery (SDC) | payer OTHER, SELFPAY ==
[2021-08-04 15:09] VITALS: BMI 36.0
[2021-08-08] VITALS (22 sets, daily range): BP systolic 85–125; BP diastolic 48–81; PULSE 66–89; RESP 11–18; TEMP 36.1–36.4; O2SAT 90–99
--- NOTE | 2021-08-08 07:02 | HMH.ANESCL ---
[facility] Anesthesia Checklist - Patient Identification Patient Identification: Arm Band - Structural Data Admitted From: Home Planned Operative Procedure/s: I & D Consent for Planned Operative Procedure(s) Verified: Yes - NPO Status Verified Time NPO: 00:00 - Additional verifications Anesthesia Reactions: No Hx Blood Transfusions: No - Airway Assessment C-Spine Mobility Assessed: Yes TMJ Mobility Assessed: Yes Dentition: Edentulous - Neurological Assessment Level of Consciousness: Awake Hx Seizures: No Numbness or tingling in extremities: No - Anesthesia Plan Anesthesia Risk discussed: Yes Anesthesia Plan: Verified ASA Class: III Anesthesia Type: General [facility] History I have reviewed the patient's past medical history: Yes Medical History: Reports:: Anxiety, Depression, Gastroesophageal Reflux Disease(GERD), Heart Murmur, Hypertension, Valvular Heart Disease Denies:: Cancer, Diabetes Mellitus Type 1, Diabetes Mellitus Type 2, Internal Pacemaker, MRSA, Seizures *Have you ever received a pneumonia vaccine?: No *Have you received a flu vaccine this season?: No Other Medical History: Reports: Anemia Anesthesia experience/problems:: None Other Surgeries: Yes: Cardiac Catheterization, Cardiac Surgery, Cholecystectomy, Hysterectomy-Total, Other. No: Pacemaker Amputation: No Fractures: No - *Social History Last grade of school completed: 9th or 10th Smoking Status: Current every day smoker Tobacco Type: cigarettes # Packs/Day (cigarettes): 1 #Yrs smoked (if former smoker): 26 Alcohol Intake: never Alcohol Intake Frequency:: other Substance Use Type: denies use *Occupational Status:: employed Housing: house Household Members: family, children *Travel in the last 8 weeks: None - Psychiatric History Pschychiatric History:: Reports:: Anxiety, Depression Family Hx:: Asthma, Diabetes, Hyperlipidemia, Hypertension, Mental illness
--- NOTE | 2021-08-08 08:30 | P.PN_ITS ---
[facility] Anesthesia Record Part I Intake, IV Amount: 250 Estimated blood loss (mL): 5 Urine output (mL): 0 Blood Pressure: 106/54 SaO2: 92 Pulse Rate: 89 Respiratory Rate: 11 Temperature: 97 F Patient is:: Drowsy, Oral/Nasal airway Stable to PACU at:: 08:21
--- NOTE | 2021-08-08 08:33 | P.OP_ITS ---
Date of procedure: 08/08/21 Pre-op Diagnosis:: left leg wound dehiscence with concern for hematoma vs abscess Post-op Diagnosis:: same Procedure performed:: left leg debridement / irrigation skin / subcutaneous tissue [id number] left leg wound vacuum assisted closure wound 8 cm x 3 cm x 1 cm [id number] Surgeon:: Reuben Freedman JR, MD ENGRAVING PLATE MAKER:: Daniela Guardado Anesthesia: GETA Estimated blood loss (mL): 5 Operative findings:: turbid fluid, no gross purulence, devitilized skin and subcutaneous adipose tissue, wound 8 x 3 x 1 cm Operative note:: 41-year-old female status post 4 compartment fasciotomy for compartment syndrome in May secondary to gastrocnemius hematoma with supratherapeutic INR. She was doing well, developed a small area of wound dehiscence with her INR was later elevated once again. We monitored this, did local wound care. Unfortunately clinic last week with erythema, induration, no gross fluctuance about the wound with persistent drainage. She underwent MRI which demonstrated concern for fluid collection consistent with abscess versus hematoma. I had a discussion with her regarding further management, recommended left leg debridement, irrigation, wound vacuum-assisted closure. She was amenable with plan. We discussed the risk and benefits of surgery. Risks included but were not limited to pain, bleeding, infection, damage to adjacent structures, need for further surgery, wound healing complications, loss of limb, . Patient expressed verbal consent and written consent was obtained for the above procedure. Patient was identified in preoperative holding. Operative site was marked in indelible ink. History, physical, consent were reviewed and updated. Patient was surrendered to the anesthesia team, taken to the operative suite, placed supine on a well-padded operative table. Ipsilateral hip bump. Was utilized. Anesthesia was induced. The operative extremity was prepped and draped in the usual sterile fashion. The operative team donned sterile gowns and gloves and a timeout was called. All in attendance agreed regarding the patient's identity, procedure, operative site. Weight-based dose of antibiotics was given prior to incision. Using a 15 blade scalpel I incised devitalized skin sharply and this was discarded. Limited fluid was noted. I sent swab specimens of the fluid for culture. There was devitalized subcutaneous adipose tissue which I debrided with a rongeur and curette. All debridements were excisional debridement. A portion of the devitalized subcutaneous tissue was sent for culture as well. The resulting wound measured 8 cm x 4 cm x 1 cm. There was no tracking deep within the muscle compartment of the remaining tissue appeared healthy. I copiously i rrigated the wound with gentamicin impregnated saline solution, applied a wound vacuum-assisted closure device to the wound measuring 8 cm x 4 cm x 1 cm. This is at 200 mmHg continuous suction and was noted to have good seal. Sterile dressings were applied. Counts were correct x2. There were no apparent complications. I was present and scrubbed for the entire case. Condition: stable Disposition: PACU Complications:: None apparent
--- NOTE | 2021-08-08 09:08 | SUR.PHASEI ---
0901- pt kept in PACU to be discharged home at this time. Pt in stable condition under the care of aminata pearson and aminata smalls
--- NOTE | 2021-08-08 09:47 | SUR.PHASEII ---
0915- Alethea in the orthopedics office was contacted about the Home Health wound Vac arrangements, she stated that she was making the arrangements and that home health will be contacting the pt.
--- NOTE | 2021-08-08 10:07 | HMH.ANESII ---
[facility] Anesthesia Record Part II Discharge Time: 09:01 Destination: Surgical Day Care (OP Surgery) PACU nurse assessment reviewed?: Yes Patient Condition:: Good Anesthesia Complications:: None Swallowing reflex intact?: Yes Cyanosis?: No Blood Pressure: 102/65 Pulse Rate: 85 Temperature: 97.1 F Mental Status: Alert & Oriented Pain level:: 6 Nausea and/or vomitting:: None Intake, IV Amount: 0
--- NOTE | 2021-08-08 10:42 | SUR.PHASEII ---
1002- As pt is being transferred to w/c to discharge home, a moderate amount of blood noted to the dressing and in the wound vac canister. Pt returned to bed, lili notifed Dr. Freedman about the blood loss. Dr. Freedman requested that the wound vac be removed as well as all other soiled dressings, a surgicel be applied to the surgical site with 4x4's and a soft bandage,(completed by aminata pearson) until he is able to come to the PACU to apply a new dressing. Pt will be remaining in Pacu under aminata pearson care at this time.
--- NOTE | 2021-08-08 11:01 | SUR.PHASEII ---
1055- Kaleigh assessed pt site for bleeding at found that the site had a moderate amount of sanguineous drainage on new dressings, Tano notifed at this time and gave verbal orders to get an INR drawed and to reinforce the dressing until he is able to come redo the dressing and assess. Kaleigh reinforced dressing with new soft rolls at this time.
--- NOTE | 2021-08-08 11:07 | SUR.PHASEII ---
1101- Dr. Freedman also informed aminata pearson at this time to not allow any more food or drink. Pt notified.
--- NOTE | 2021-08-08 11:15 | SUR.PHASEII ---
1110- lab in at bedside at this time to draw INR per orders.
[2021-08-08 11:29] LABS: INR 2.58 (0.9-1.1); Prothrombin Time 27.2 seconds (10.1-12.5)
--- NOTE | 2021-08-08 12:00 | SUR.PHASEII ---
1154 - dressing reinforced 4x4, soft roll, azeem. office notified, spoke w/ Ivonne, made aware of persistent bleeding and need for reinforcement again by Pablo High RN.
--- NOTE | 2021-08-08 12:12 | SUR.PHASEII ---
1205 - PIV inserted to R hand, stat H/H drawn.
[2021-08-08 12:15] LABS: Hematocrit 32.9 % (37.0-47.0); Hemoglobin 10.2 g/dL (12.2-16.2)
--- NOTE | 2021-08-08 12:27 | SUR.PHASEII ---
Re-assessed pt. Pt sitting up on stretcher, NAD. Remains on 2 L O2 per nasal cannula. Pt reports feeling better . No shadowing noted to azeem.
--- NOTE | 2021-08-08 12:32 | SUR.PHASEII ---
Dr. Freedman @ pt's bedside @ this time
--- NOTE | 2021-08-08 12:49 | SUR.PHASEII ---
1245- Dr. Freedman at bedside at this time. Removed soiled dressings, localized with lidocaine with epi (20ml), used handheld bovie and reapplied a new surgicel, 4x4's, and azeem wrap. Tano is going to reassess the dressing in 30 minutes. Pt in stable condition at this time under aminata pearson care.
--- NOTE | 2021-08-08 13:36 | SUR.PHASEII ---
1336- family updated of pt current status at this time via aminata abarca in preop.
--- NOTE | 2021-08-08 13:56 | SUR.PHASEII ---
1350- Dr. Freedman and bijan pedro at [facility] at this time. New surgicel, wound vac, 4x4's, and azeem wrap applied. Dr. Freedman stated to observe her for the next 30 minutes to monitor for bleeding and report back to him for possible admission. Pt stable at this time, under the care of aminata pearson.
--- NOTE | 2021-08-08 14:21 | SUR.PHASEII ---
1420- updated of the pt's current status at this time. Bandage is dry/intact and the wound vac currently has about 10-15ml of sanguineous drainage. Currently awaiting 's response at this time for further discharge instructions.
--- NOTE | 2021-08-08 14:49 | SUR.PHASEII ---
1445- Dr. Freedman notifed aminata pearson that pt was allowed to be discharged home at this time. Pt notified and educated that if the wound vac loses suction or starts to bleed heavily to return to the ER.
== END 2021-08-08 16:00 | disposition home or self-care (01) ==
LOC: OR 06:01
PROVIDERS: PCP Internal Medicine Adolescent Medicine; Visit Provider Orthopaedic Surgery
PROC: (CPT 11042; principal; 2021-08-08 07:30)
DX: T81.31XA Disruption of external operation (surgical) wound, not elsewhere classified, initial encounter (principal); T79.A22A Traumatic compartment syndrome of left lower extremity, initial encounter
CPT/HCPCS: 11042; 11045; 85014; 85018; 85610; 87070; 87075; 87077; 87186; 87205; 96374; J0131

== ENCOUNTER 2021-08-08 19:29 | Emergency (ER) | payer OTHER, SELFPAY ==
[2021-08-08 19:31] VITALS: BP 116/54; PULSE 84; RESP 18; TEMP 36.3; O2SAT 97; BMI 36.0
[2021-08-08 20:30] VITALS: BP 103/61; PULSE 79; O2SAT 97
--- NOTE | 2021-08-08 21:25 | HMH.EDGENADL ---
ED Disposition Clinical Impression: Wound of left lower extremity Qualifiers: Encounter type: initial encounter Qualified Code(s): S81.802A - Unspecified open wound, left lower leg, initial encounter Disposition: Admitted As Inpatient Condition on Discharge: Good - Critical Care Critical Care Time: No Attestation: On 08/08/21, the high probability of a clinically significant, sudden or life threatening deterioration of the following system(s) required my full and direct attention, intervention and personal management. The time I documented below is in addition to time spent performing reported procedures but includes the following listed in this critical care notation. Medical Decision Making - Medical Records Medical records reviewed: Yes: I reviewed the patient's medical records. - [place] Inquiry Pt receiving controlled substance: No Vital Signs: 08/08/21 19:31 Temperature 97.4 F L Temperature Source Oral Pulse Rate [Left] 84 Respiratory Rate 18 Blood Pressure [Right Arm] 116/54 L Blood Pressure Mean [Right Arm] 74 02 Sat by Pulse Oximetry 97 Oxygen Delivery Method Room Air Orders (Tests/Meds): ORDERS Category Date Time Status Complete Blood Count Auto Diff AMLAB Lab 08/09/21 06:00 Ordered Medical Decision Narrative: Patient is a 41-year-old female who presents to the ED today for further evaluation of a left lower extremity wound laceration. Patient is well-appearing on initial evaluation, no acute distress, not frankly hemorrhaging from the wound more of a slow venous ooze. Surgical diagnosis includes compartment syndrome, venous bleeding, muscle tissue bleeding, coagulopathy. Patient does not require any lab work-up at this time, . Patient clinically does not have compartment syndrome at this time, although does have some swelling of the calf, there is no pain with passive motion and no pain out of proportion to exam, patient has good pulses and no paresthesias or pallor. I have discussed the case with Dr. Guzman who requested we remove the wound VAC and packed with gauze and Surgicel. This was performed and wound was packed with Surgicel and 4 x 4 gauze, and wrapped tightly with an Balaji wrap. We will continually reassess this, and he would request that the patient be admitted to the hospital so that he can check the wound in the morning. We have also ordered a morning CBC per his request. Dr. Downs will admit for Dr. Mujica's bee stings patient's primary care provider, patient is amenable with this plan as stated. General Adult HPI - General Chief complaint: Wound/Laceration Stated complaint: Surg 08/08 L leg Time Seen by Provider: 08/08/21 20:01 Mode of Arrival: EMS Source of Information: Patient, Medical Record Limitations: Physical Limitations Description of Symptoms (Recalled from ER Triage Doc. by RN): pt arrived with wound vac in place and seems to be bleeding around the vac. pt states that Dr guzman said for her to come in and get vac removed and to be admited. PT COVID + asymptomatic - History of Present Illness HPI narrative: Patient is a 41-year-old female who presents to the ED today for further evaluation at the advice of her operating surgeon Dr. Guzman, patient had an operation today her muscle tissue on the left lower extremity, had a wound VAC placed, but has had persistent drainage from the wound, has clotted off her wound VAC tubing twice, patient has had persistent oozing around the edges of the wound VAC. Dr. Guzman advised patient to return to the emergency department for further evaluation of this, and on my evaluation patient states that the wound is painful. - Related Data Home Medications Medication Instructions Recorded Confirmed albuterol sulfate 90 mcg/actuation 2 puff INHALATION QID PRN 02/01/18 08/04/21 aerosol inhaler fluticasone propionate 50 1 spray INTRANASAL DAILY 02/01/18 08/04/21 mcg/actuation nasal spray,suspension venlafax
[2021-08-08 22:55] VITALS: BP 107/55; PULSE 74; O2SAT 96
[2021-08-08 23:00] LABS: Influenza A, PCR Not Detected (NotDetected); Influenza B, PCR Not Detected (NotDetected)
[2021-08-08 23:17] LABS: Coronavirus 19, PCR Detected (NotDetected)
[2021-08-09 00:21] VITALS: BP 94/58; PULSE 79; O2SAT 96
--- NOTE | 2021-08-09 00:58 | PC.NURSE ---
Pt sleeping. No needs stated.
[2021-08-09 03:59] VITALS: BP 98/65; PULSE 79; RESP 18; O2SAT 98
[2021-08-09 05:21] LABS: Eosinophils # 0.1 K/mm3 (0.0-0.4); Lymphocytes # 1.6 K/mm3 (0.7-4.5); Monocytes # 0.2 K/mm3 (0.1-1.0)
[2021-08-09 05:32] LABS: Basophils % 0.9 % (0.1-2.0); Eosinophils % 2.4 % (0.1-12.0); Hematocrit 26.7 % (37.0-47.0); Lymphocytes % 44.2 % (10-50); Mean Corpuscular HGB Conc 30.8 g/dL (31.8-35.4); Mean Corpuscular Hemoglobin 31.1 pg (27.0-31.2); Mean Platelet Volume 9.5 fl (7.4-10.4); Monocytes % 5.8 % (1.7-9.3); Neutrophils # 1.7 K/mm3 (1.8-7.8); Neutrophils % 46.7 % (37.0-80.0); Platelet Count 303 K/mm3 (142-424); Red Blood Count 2.64 M/mm3 (4.20-5.40); Red Cell Distribution Width 15.4 % (11.5-17.5); White Blood Count 3.6 K/mm3 (4.8-10.8)
[2021-08-09 06:39] LABS: Hemoglobin 8.2 g/dL (12.2-16.2)
--- NOTE | 2021-08-09 07:04 | PC.NURSE ---
pt sleeping awakes easily
--- NOTE | 2021-08-09 07:33 | HMH.ORTHPN ---
Subjective Date: 08/09/21 Time: 07:34 Principal diagnosis: left leg wound Interval history: Yesterday in PACU following I&D left leg, VAC lost seal and she had uncontrolled bleeding. After applying surgicel in PACU, was able to reapply wound VAC which kept seal for several hours. Unfortunately the VAC began leaking again overnight and she returned to ED. Surgicel was reapplied. This morning her wound is no longer bleeding. I reapplied wound VAC and it has good seal, minimal output. PN: Obj Ex Vital signs: Temp Pulse Resp BP Pulse Ox 97.4 F L 79 18 98/65 L 98 08/08/21 19:31 08/09/21 03:59 08/09/21 03:59 08/09/21 03:59 08/09/21 03:59 - Constitutional no acute distress - Routine HEENT Exam Head: Present: normocephalic Eye: Present: EOMI - Routine Neck Exam Present: supple - Routine Respiratory Exam Absent: accessory muscle use - Routine Cardiovascular Exam Present: RRR - Routine Abdominal Exam Present: soft - Detailed Lower Extremity Exam Lower leg: Left wound (left leg wound with appropriate hemostasis, wound measuring 8 cm x 3 cm x 1 cm, wound VAC reapplied) Progress Note: A&P (1) Wound of left lower extremity Status: Acute Assessment and plan: 41 year old female with left lateral leg wound dehiscence s/p 4 compartment fasciotomy in May, now status post debridement, irrigation, wound VAC 08/08/21, with postop bleeding, now resolved. Appreciate ED management overnight, Medicine willingness to admit. Her H&H is appropriate this morning, vital signs stable. Wound no longer oozing this morning, VAC with good seal, no output. Okay for discharge home from ED, no need currently for prolonged inpatient stay. Plan for follow up in clinic Wednesday08/15/21.
[2021-08-09 09:55] VITALS: BP 126/74; PULSE 74; RESP 16; TEMP 36.6; O2SAT 98
== END 2021-08-09 09:57 | disposition home or self-care (01) ==
LOC: ER 21:26 → 2ND 08-09 07:40
PROVIDERS: Student in an Organized Health Care Education/Training Program; Emergency Provider Emergency Medicine; PCP Internal Medicine Adolescent Medicine
DX: T81.32XD Disruption of internal operation (surgical) wound, not elsewhere classified, subsequent encounter (principal); A49.01 Methicillin susceptible Staphylococcus aureus infection, unspecified site; U07.1 COVID-19; I10 Essential (primary) hypertension; F17.210 Nicotine dependence, cigarettes, uncomplicated; K21.9 Gastro-esophageal reflux disease without esophagitis; F41.8 Other specified anxiety disorders; Z79.899 Other long term (current) drug therapy
CPT/HCPCS: 85025; 96365; 99283; C9803; U0003; U0005

== ENCOUNTER 2021-08-14 12:37 | Outpatient (CLI) | payer OTHER, SELFPAY | END 2021-08-14 13:10 | disposition home or self-care (01) | LOC: INF 12:38 | PROVIDERS: PCP Internal Medicine Adolescent Medicine; Visit Provider Orthopaedic Surgery | DX: L08.9 Local infection of the skin and subcutaneous tissue, unspecified (principal); S81.802D Unspecified open wound, left lower leg, subsequent encounter; Z48.01 Encounter for change or removal of surgical wound dressing | CPT/HCPCS: G0463 ==

== ENCOUNTER 2021-09-30 16:00 | Outpatient (RCR) | payer OTHER, SELFPAY ==
--- NOTE | 2021-08-18 16:45 | HMH.PTOPWND ---
Rehab Outpt Wound Evaluation Rehab OP Wound Evaluation Start: 08/18/21 16:16 Freq: Status: Active Protocol: Document 08/18/21 16:16 GREGORIOANNE (Rec: 08/18/21 16:45 PWANNE [id number]) Electronically Signed By Erick Torres, PT 08/18/21 16:16 Subjective/History History History This is the initial Physical Therapy wound clinic evaluation for Debra Carvalho. Pt is a 41 y/o female referred to Wound care for wound vac changes and wound care. Pt reprots wounds were caused from surgery and infection. Pt was unspecific of surgery type but stated it was 08/08/21. Pt reports she needs the wound vac changes per MD orders every 2-3 days. Subjective Subjective Pt states she saw MD last week but was not told she needed to bring wound vac supplies - so dressing was placed wet-to -dry Wound Eval Wound Left Lower Lateral Busby Wound Type Incision Wound Length (cm) 8 Wound Width (cm) 5 Wound Bed Appearance Beefy Red,Yellow,Necrotic Percentage Granulated (%) 80 Percentage of Slough (%) 20 Percentage of Eschar (Black) (%) 10 Percentage of Eschar (Yellow) (%) 10 Wound Margins Description Well Defined Surrounding Tissue Appearance [place] Drainage Description None Drainage Odor No Odor Dressing Status Dry & Intact Packing Type Woundvac Sponge Primary Dressing Film Dressing Comment wound vac seal Wound Secondary Dressing Type Gauze Roll/Wrap,Elastic Bandage Comment kerlix and coban Wound Debridement Method Sharps,Forceps,Gauze Wound Debridement Amount of Tissue Minimal Removed Wound Debridement Result Patient Unable to Tolerate Dressing Change Date 08/18/21 Dressing Change Patient Tolerance Tolerated Poorly Wound Problems/Impairments Impairments Problems/Impairmments Wound Care Needs,Subjective C/ O Pain,Impaired Self Care/Self Management Prognosis Rehab Potential Fair Clinical Impression Consistent with Diagnosis Yes Short Term Goals Number of Weeks 4 Decrease Wound Area 25
== END 2021-09-30 16:05 | disposition home or self-care (01) ==
LOC: PT 16:00
PROVIDERS: PCP Internal Medicine Adolescent Medicine; Visit Provider Orthopaedic Surgery
DX: L08.9 Local infection of the skin and subcutaneous tissue, unspecified (principal); S81.802A Unspecified open wound, left lower leg, initial encounter; T14.8XXA Other injury of unspecified body region, initial encounter
CPT/HCPCS: 97162; 97597; 97605

== ENCOUNTER → 2021-11-18 10:10 | Outpatient (CLI) | payer OTHER, SELFPAY | PROVIDERS: PCP Internal Medicine Adolescent Medicine; Visit Provider Internal Medicine Adolescent Medicine | DX: R06.02 Shortness of breath (principal) | CPT/HCPCS: 94060; 94640; 94726; 94729 ==

== ENCOUNTER → 2021-12-10 20:49 | Outpatient (CLI) | payer OTHER, SELFPAY | PROVIDERS: PCP Internal Medicine Adolescent Medicine; Visit Provider Nurse Practitioner Family | DX: G47.33 Obstructive sleep apnea (adult) (pediatric) (principal); R06.09 Other forms of dyspnea; R06.2 Wheezing; Z78.9 Other specified health status | CPT/HCPCS: 95811 ==

== ENCOUNTER → 2022-01-28 10:26 | Outpatient (CLI) | payer OTHER, SELFPAY ==
[2022-01-28 10:56] LABS: Basophils # 0.1 K/mm3 (0-0.2); Basophils % 0.8 % (0.1-2.0); Eosinophils # 0.2 K/mm3 (0.0-0.4); Eosinophils % 2.7 % (0.1-12.0); Hematocrit 35.1 % (37.0-47.0); Hemoglobin 10.5 g/dL (12.2-16.2); Lymphocytes # 1.5 K/mm3 (0.7-4.5); Lymphocytes % 19.7 % (10-50); Mean Corpuscular Hemoglobin 27.3 pg (27.0-31.2); Mean Corpuscular Volume 91.1 fl (81-99); Mean Platelet Volume 8.6 fl (7.4-10.4); Monocytes # 0.4 K/mm3 (0.1-1.0); Monocytes % 4.8 % (1.7-9.3); Neutrophils # 5.4 K/mm3 (1.8-7.8); Platelet Count 347 K/mm3 (142-424); Red Blood Count 3.85 M/mm3 (4.20-5.40); Red Cell Distribution Width 21.6 % (11.5-17.5); White Blood Count 7.5 K/mm3 (4.8-10.8)
[2022-01-28 12:45] LABS: Chloride 110 mmol/L (98-107); Sodium 142 mmol/L (136-145)
[2022-01-28 12:46] LABS: Potassium 3.4 mmoL/L (3.5-5.1)
[2022-01-28 12:49] LABS: Anion Gap 10.4 mEq/L (5-15); Blood Urea Nitrogen 11 mg/dl (7-17); Calcium 9.2 mg/dl (8.4-10.2); Carbon Dioxide 25 mmol/L (22.0-30.0); Estimated Glomerular Filt Rate 50 ml/min (>60); GFR (African American) 60 ML/MIN (>60); Glucose 123 mg/dl (74-100)
== END ==
PROVIDERS: PCP Internal Medicine Adolescent Medicine; Visit Provider Nurse Practitioner
DX: Z01.812 Encounter for preprocedural laboratory examination (principal); Z20.822 Contact with and (suspected) exposure to COVID-19; R07.9 Chest pain, unspecified
CPT/HCPCS: 36415; 80048; 85025; C9803; U0003; U0005

== ENCOUNTER 2022-01-30 08:49 | Day surgery (SDC) | payer OTHER, SELFPAY ==
[2022-01-30] VITALS (11 sets, daily range): BP systolic 140–184; BP diastolic 75–100; PULSE 65–87; RESP 18–20; O2SAT 90–100; BMI 35.9
--- NOTE | 2022-01-30 | IR_ITS ---
APPROVED REPORT Patient Location: Outpatient Shift Production Associate: UCHE Mcgee RT (R) PROCEDURES Left heart catheterization Left ventriculogram Selective coronary angiogram INDICATION Abnormal stress test, History of congenital heart disease Informed consent was obtained prior to the procedure. COMPLICATIONS NONE Estimated Blood Loss: LESS THAN 10 ML TECHNIQUE One percent lidocaine used to anesthetize the right anterior aspect of the wrist. The right radial artery was accessed via the Seldinger technique. A 6 Cameroonian sheath was placed in the right radial artery. 2.5 mg of verapamil, 800 mcg of nitroglycerin, 1mg Lidocaine and 5000 U Heparin were given through the arterial sheath. The papa catheter was also used to perform left heart catheterization, left ventriculogram and selective coronary angiogram. At the end of the procedure the sheath was removed good hemostasis was achieved using Traclet band, patient was transferred to the postop holding area in stable condition. ANGIOGRAPHIC RESULTS The left main artery Normal The left anterior descending artery Normal The circumflex artery Normal The right coronary artery Dominant normal The LIEBERMAN ventriculogram reveals Preserved 55% The left ventricular end-diastolic pressure 10 mmHg IMPRESSION Normal coronary arteries Normal ejection fraction Normal left ventricular end-diastolic pressure PLAN 1. Evaluation of noncardiac symptoms Electronically signed by : Ivan Vasquez MD 01/30/2022 12:26:18
[2022-01-30 09:47] LABS: INR 1.78 (0.9-1.1); Prothrombin Time 19.3 seconds (10.1-12.5)
== END 2022-01-30 15:07 | disposition home or self-care (01) ==
LOC: CATHLAB 08:51
PROVIDERS: PCP Internal Medicine Adolescent Medicine; Visit Provider Internal Medicine
DX: Z79.899 Other long term (current) drug therapy; Z79.01 Long term (current) use of anticoagulants; I20.8 Other forms of angina pectoris; I10 Essential (primary) hypertension; Z95.2 Presence of prosthetic heart valve; R94.39 Abnormal result of other cardiovascular function study
CPT/HCPCS: 85610; 93458; 99152; C1725; C1769; J1644; Q9967

== ENCOUNTER 2022-08-20 10:59 | Outpatient (RCR) | payer OTHER, SELFPAY ==
--- NOTE | 2022-08-20 12:12 | HMH.PTOPEV ---
PT Outpatient Evaluation Rehab PT Outpatient Evaluation Start: 08/20/22 11:47 Freq: Status: Active Protocol: Document 08/20/22 11:47 OSMANICARISSAAddie (Rec: 08/20/22 12:12 PDESEROUX [id number]) E-signed By Master Powers, PT Outpatient Therapy Subjective History Subjective History Pt. is a 42 year old female whom presents to [facility] Outpatient Physical Therapy Services in [place] for the initial evaluation this date( 08/20/22) w/ c/o acute and constant lumbar(R>L) and RLE P !, tingling, and stiffness of traumatic onset a few weeks ago. Pt. reports symptom onset after bending over to change the oil out of a fryer oven. Pt. describes symptoms in the low back as hit in the back by a sledgehammer w/ shooting and tingling symptoms radiating to the knee w/ certain movements. Pt. reports symptoms worsen w/ bending over to lift objects, sweeping/mopping, and walking. Pt. reports having no symptom relief w/ OTC Ibuprofen. Pt. denies having any recent diagnostic imaging nor injections for current complaint. Current medications include Fentanyl, insulin shot 1x/wk., Metoprolol, Albuterol, Trazadone, and Warfarin. PMH includes Hypertension, acid reflux, DM- II, S/P LLE lateral compartment fasciotomy d/t hematoma, S/P emergency hysterectomy d/t uterine cancer, and open heart surgery in 2018. Pt. denies history of pacemaker, denies history of latex allergy, reports medicational allergy to any cillin drugs. Chief Complaint Pain,Spasms,Stiff,Paresthesia, Weakness Symptom Type Ache,Sharp,Dull,Stabbing, Tingling,Shooting
== END 2022-09-24 15:00 | disposition home or self-care (01) ==
LOC: PT 10:59
PROVIDERS: PCP Nurse Practitioner Family; Visit Provider Nurse Practitioner Family
DX: M54.50 Low back pain, unspecified (principal)
CPT/HCPCS: 97163

== ENCOUNTER → 2022-08-25 09:46 | Outpatient (CLI) | payer OTHER, SELFPAY ==
--- NOTE | 2022-08-25 09:47 | CA_ITS ---
APPROVED REPORT EXAM: Comprehensive 2D, Doppler, and color-flow Echocardiogram Professor Of Spanish: Gisell Pfeiffer RVT Ht: 5 ft 4 in Wt: 201lbs BSA: 1.96 BP: 107/65 mmHg Indications: SOA,MVR,ABN EKG,HTN,SMOKER 2D Dimensions LVOT 2.06 cm (M/F) 1.5-2.5 M-Mode Dimensions RVDd 3.40 cm (0.9-2.6) LA Diam 4.37 cm (1.9-4.0) LVDd 3.26 cm (3.5-5.7) Ao Diam 2.80 cm (2.0-3.7) LVDs 2.37 cm (3.5-5.7) IVSd 1.34 cm (0.6-1.1) PWd 1.12 cm (0.6-1.1) EF (Teich) 54.40% FS 27.30% EDV (Teich) 42.80 mL TAPSE 1.66 (<1.7) ESV (Teich) 19.50 mL Aortic Valve AO Peak GR. 4.10 mmHg Mitral Valve MV Mean Gr. 4.80 (<2mmHg) MV PHT 70.00 ms Pulmonary Valve PV Peak Velocity 54.00 (50-150 cm/s) Tricuspid Valve TR P. Velocity 351.00 cm/s RAP Estimate 10.00 mmHg RVSP 59.20 mmHg Left Ventricle Left atrium is moderately enlarged, left ventricle is normal size, estimated ejection fraction 55% with no regional wall motion abnormality, diastolic parameters are inconclusive. Right Ventricle Right atrium and right ventricle are moderately enlarged, contractility right ventricle is normal. Aortic Valve Aortic valve is minimally thickened and fibrosed there is no aortic stenosis or aortic insufficiency. Mitral Valve There is mechanical prosthetic valve noted in the mitral position, the valve is well-seated, the maximum mitral inflow velocity recorded study is 1.8 m/s, resulting in a mean gradient across mitral valve of 5 mmHg, valve area is 2.7 cm??? by pressure half-time. There is no significant mitral regurgitation. Tricuspid Valve Tricuspid valve grossly normal, there is mild tricuspid regurgitation, calculated right ventricular systolic pressure is 43 mmHg. Pulmonic Valve Pulmonic valve is poorly visualized. Great Vessels Aortic root is normal size. Inferior vena cava is poorly visualized. Pericardium No significant pericardial effusion noted. Conclusion 1. Biatrial enlargement, normal left ventricular size, estimated ejection fraction 55% with no regional wall motion abnormality, diastolic parameters are inconclusive. 2. Moderately enlarged right ventricle with normal contractility. 3. Mechanical prosthetic mitral valve, mean gradient across valve is 5 mmHg, valve area is 2.7 cm???, there is no significant mitral regurgitation. 4. Mild tricuspid regurgitation, calculated right ventricular systolic pressure is 43 mmHg. 5. No significant pericardial effusion noted. 6. Inferior vena cava is poorly visualized. Electronically signed by : Alexy Zaldivar MD 08/26/2022 06:16:55
== END ==
PROVIDERS: PCP Nurse Practitioner Family; Visit Provider Nurse Practitioner Family
DX: Z95.2 Presence of prosthetic heart valve (principal); R06.09 Other forms of dyspnea; I34.0 Nonrheumatic mitral (valve) insufficiency
CPT/HCPCS: 93306

== ENCOUNTER → 2022-12-09 12:00 | Outpatient (CLI) | payer OTHER, SELFPAY ==
[2022-12-09 18:49] LABS: Basophils # 0.1 K/mm3 (0-0.2); Basophils % 1.2 % (0.1-2.0); Eosinophils # 0.2 K/mm3 (0.0-0.4); Eosinophils % 2.3 % (0.1-12.0); Hematocrit 40.4 % (37.0-47.0); Hemoglobin 13.1 g/dL (12.2-16.2); Lymphocytes # 2.5 K/mm3 (0.7-4.5); Lymphocytes % 24.2 % (10-50); Mean Corpuscular HGB Conc 32.4 g/dL (31.8-35.4); Mean Corpuscular Hemoglobin 29.9 pg (27.0-31.2); Mean Corpuscular Volume 92.4 fl (81-99); Mean Platelet Volume 9.6 fl (7.4-10.4); Monocytes # 0.8 K/mm3 (0.1-1.0); Monocytes % 7.6 % (1.7-9.3); Neutrophils # 6.7 K/mm3 (1.8-7.8); Neutrophils % 64.6 % (37.0-80.0); Platelet Count 416 K/mm3 (142-424); Red Blood Count 4.37 M/mm3 (4.20-5.40); White Blood Count 10.4 K/mm3 (4.8-10.8)
[2022-12-09 19:10] LABS: Alanine Aminotransferase 28 U/L (12-78); Albumin Level 4.6 g/dl (3.5-5.0); Albumin/Globulin Ratio 1.4 (1.1-1.8); Alkaline Phosphatase 54 U/L (38-126); Anion Gap 20.1 mEq/L (5-15); Aspartate Amino Transferase 31 U/L (14-36); Bilirubin,Total 0.4 mg/dl (0.2-1.3); Blood Urea Nitrogen 24 mg/dl (7-17); Calcium 9.9 mg/dl (8.4-10.2); Carbon Dioxide 27 mmol/L (22.0-30.0); Chloride 98 mmol/L (98-107); Estimated Glomerular Filt Rate 36 ml/min (>60); GFR (African American) 43 ML/MIN (>60); Globulin 3.3 g/dL (1.3-3.2); Glucose 96 mg/dl (74-100); Potassium 4.1 mmoL/L (3.5-5.1); Sodium 141 mmol/L (136-145); Total Protein,Serum 7.9 g/dl (6.3-8.2)
[2022-12-09 19:25] LABS: INR 1.01 (0.9-1.1); Prothrombin Time 10.9 seconds (10.1-12.5)
[2022-12-09 21:34] LABS: Hemoglobin A1C 5.4 % (4.0-6.0)
[2022-12-10 11:59] LABS: Free T4 (Free Thyroxine) 0.93 ng/dl (0.78-2.19)
[2022-12-10 12:13] LABS: Thyroid Stimulating Hormone 6.52 uIU/mL (0.465-4.68)
== END ==
PROVIDERS: PCP Family Medicine; Visit Provider Family Medicine
DX: R42 Dizziness and giddiness (principal); I10 Essential (primary) hypertension; D68.9 Coagulation defect, unspecified; E66.9 Obesity, unspecified; Z79.899 Other long term (current) drug therapy
CPT/HCPCS: 80053; 83036; 84439; 84443; 85025; 85610

== ENCOUNTER → 2023-01-07 16:40 | Outpatient (CLI) | payer OTHER, SELFPAY ==
[2023-01-07 16:36] LABS: Prothrombin Time 34.3 seconds (10.1-12.5)
[2023-01-07 16:57] LABS: Thyroid Stimulating Hormone 3.06 uIU/mL (0.465-4.68)
== END ==
PROVIDERS: Visit Provider Family Medicine
DX: E03.9 Hypothyroidism, unspecified (principal); Z51.81 Encounter for therapeutic drug level monitoring; Z79.01 Long term (current) use of anticoagulants
CPT/HCPCS: 84443; 85610

== ENCOUNTER → 2023-02-11 11:12 | Outpatient (CLI) | payer OTHER, SELFPAY | PROVIDERS: PCP Family Medicine; Visit Provider Nurse Practitioner | DX: R07.9 Chest pain, unspecified (principal) | CPT/HCPCS: 93270 ==

== ENCOUNTER → 2023-02-17 12:20 | Outpatient (CLI) | payer OTHER, SELFPAY ==
--- NOTE | 2023-02-17 12:30 | CA_ITS ---
FINAL REPORT CLINICAL HISTORY: dizziness, TIA symptoms COMPARISON: None FINDINGS: RIGHT CAROTID: CCA PSV -102.7 cm/sec ICA PSV -84.5 cm/sec ICA/CCA PSV ratio -0.82. Comments: Minimal plaque disease is noted. LEFTCAROTID: CCA PSV -95.2. cm/sec ICA PSV -86.6. cm/sec ICA/CCA PSV ratio -1.33. Comments: Minimal plaque disease is noted. Antegrade flow is seen within the vertebral arteries. IMPRESSION: Carotid stenosis classified less than 50% Reviewed, Interpreted and Dictated by Mark aPge MD Transcribed by Nicole Michaud Authenticated and [facility]
--- NOTE | 2023-02-17 12:49 | MM_ITS ---
PROCEDURE INFORMATION: Exam: MG Bilateral Screening 3D Mammography Exam date and time: 02/17/2023 1:11 PM Age: 43 years old Clinical indication: Screening examination; Additional info: Breast cancer screening . Family history of breast carcinoma. TECHNIQUE: Imaging protocol: Bilateral Screening tomosynthesis and 2D mammography including computer-aided detection (CAD) when performed. COMPARISON: 1. MG DXBI MM Dig mamm BI DX w/CAD 09/30/2017 3:07 PM 2. BREASTLT US breast LT complete 09/30/2017 2:40 PM FINDINGS: MAMMOGRAPHY: Breast composition: There are scattered areas of fibroglandular density. Mass: No suspicious masses. Architectural distortion: No suspicious distortion. Calcifications: No suspicious calcifications. Asymmetric density: None. Skin thickening: None. Axillary adenopathy: None. IMPRESSION: No mammographic evidence of malignancy. Annual screening is recommended unless otherwise clinically indicated. ASSESSMENT: BI-RADS Category 1: Negative
== END ==
PROVIDERS: PCP Family Medicine; Visit Provider Nurse Practitioner
DX: Z12.31 Encounter for screening mammogram for malignant neoplasm of breast (principal); R42 Dizziness and giddiness; R47.89 Other speech disturbances
CPT/HCPCS: 77063; 77067; 93880

== ENCOUNTER → 2023-02-19 11:00 | Outpatient (CLI) | payer OTHER, SELFPAY ==
[2023-02-11 16:36] LABS: Basophils # 0.1 K/mm3 (0-0.2); Basophils % 0.7 % (0.1-2.0); Eosinophils # 0.2 K/mm3 (0.0-0.4); Eosinophils % 2.9 % (0.1-12.0); Hematocrit 38.2 % (37.0-47.0); Lymphocytes # 1.8 K/mm3 (0.7-4.5); Lymphocytes % 25.6 % (10-50); Mean Corpuscular HGB Conc 31.3 g/dL (31.8-35.4); Mean Corpuscular Hemoglobin 29.1 pg (27.0-31.2); Mean Corpuscular Volume 93.2 fl (81-99); Mean Platelet Volume 9.2 fl (7.4-10.4); Monocytes # 0.4 K/mm3 (0.1-1.0); Monocytes % 6.1 % (1.7-9.3); Neutrophils # 4.6 K/mm3 (1.8-7.8); Neutrophils % 64.7 % (37.0-80.0); Platelet Count 320 K/mm3 (142-424); Red Blood Count 4.11 M/mm3 (4.20-5.40); Red Cell Distribution Width 14.5 % (11.5-17.5); White Blood Count 7.1 K/mm3 (4.8-10.8)
[2023-02-11 16:38] LABS: Prothrombin Time 10.8 seconds (10.1-12.5)
[2023-02-11 16:59] LABS: Alanine Aminotransferase 29 U/L (12-78); Albumin/Globulin Ratio 1.3 (1.1-1.8); Alkaline Phosphatase 62 U/L (38-126); Anion Gap 9.6 mEq/L (5-15); Aspartate Amino Transferase 32 U/L (14-36); Bilirubin,Total 0.1 mg/dl (0.2-1.3); Blood Urea Nitrogen 17 mg/dl (7-17); Calcium 9.1 mg/dl (8.4-10.2); Carbon Dioxide 30 mmol/L (22.0-30.0); Chloride 105 mmol/L (98-107); Chol/HDL Ratio 8.1 (1-3.5); Cholesterol 195 mg/dl (140-200); Estimated Glomerular Filt Rate 49 ml/min (>60); GFR (African American) 60 ML/MIN (>60); Globulin 3.1 g/dL (1.3-3.2); Glucose 100 mg/dl (74-100); HDL Cholesterol 24 mg/dl (40-60); Potassium 3.6 mmoL/L (3.5-5.1); Sodium 141 mmol/L (136-145); Total Protein,Serum 7.1 g/dl (6.3-8.2); Triglycerides 251 mg/dl (30-150); VLDL Cholesterol 50 mg/dL (0-40)
[2023-02-11 17:10] LABS: Direct LDL Cholesterol 138.15 mg/dL (100-129)
[2023-02-11 17:30] LABS: Thyroid Stimulating Hormone 2.14 uIU/mL (0.465-4.68)
== END ==
PROVIDERS: PCP Nurse Practitioner Family; Visit Provider Nurse Practitioner Family
DX: Z00.00 Encounter for general adult medical examination without abnormal findings (principal); I10 Essential (primary) hypertension; R53.83 Other fatigue; Z51.81 Encounter for therapeutic drug level monitoring; Z79.01 Long term (current) use of anticoagulants; Z95.2 Presence of prosthetic heart valve
CPT/HCPCS: 80053; 80061; 84443; 85025; 85610

== ENCOUNTER → 2023-04-01 23:34 | Outpatient (CLI) | payer OTHER, SELFPAY ==
[2023-04-01 17:01] LABS: INR 2.74 (0.9-1.1); Prothrombin Time 27.7 seconds (10.1-12.5)
== END ==
PROVIDERS: PCP Family Medicine; Visit Provider Family Medicine
DX: Z51.81 Encounter for therapeutic drug level monitoring (principal); Z79.01 Long term (current) use of anticoagulants; Z95.2 Presence of prosthetic heart valve
CPT/HCPCS: 85610

== ENCOUNTER → 2023-07-23 08:29 | Outpatient (CLI) | payer OTHER, SELFPAY ==
[2023-07-23 16:37] LABS: Basophils # 0.1 K/mm3 (0-0.2); Basophils % 0.7 % (0.1-2.0); Eosinophils # 0.2 K/mm3 (0.0-0.4); Eosinophils % 2.3 % (0.1-12.0); Hematocrit 39.2 % (37.0-47.0); Hemoglobin 12.6 g/dL (12.2-16.2); Lymphocytes # 1.7 K/mm3 (0.7-4.5); Lymphocytes % 24.2 % (10-50); Mean Corpuscular HGB Conc 32.2 g/dL (31.8-35.4); Mean Corpuscular Hemoglobin 30.1 pg (27.0-31.2); Mean Corpuscular Volume 93.3 fl (81-99); Mean Platelet Volume 9.6 fl (7.4-10.4); Monocytes # 0.4 K/mm3 (0.1-1.0); Monocytes % 5.6 % (1.7-9.3); Neutrophils # 4.6 K/mm3 (1.8-7.8); Neutrophils % 67.1 % (37.0-80.0); Platelet Count 334 K/mm3 (142-424); Red Cell Distribution Width 14.3 % (11.5-17.5); White Blood Count 6.9 K/mm3 (4.8-10.8)
[2023-07-23 16:48] LABS: Alanine Aminotransferase 33 U/L (12-78); Albumin/Globulin Ratio 1.3 (1.1-1.8); Alkaline Phosphatase 80 U/L (38-126); Anion Gap 10.2 mEq/L (5-15); Aspartate Amino Transferase 39 U/L (14-36); Bilirubin,Total 0.5 mg/dl (0.2-1.3); Blood Urea Nitrogen 10 mg/dl (7-17); Calcium 8.7 mg/dl (8.4-10.2); Carbon Dioxide 24 mmol/L (22.0-30.0); Chloride 109 mmol/L (98-107); Estimated Glomerular Filt Rate 79 ml/min (>60); GFR (African American) 95 ML/MIN (>60); Globulin 3.2 g/dL (1.3-3.2); Glucose 112 mg/dl (74-100); Potassium 3.2 mmoL/L (3.5-5.1); Sodium 140 mmol/L (136-145); Total Protein,Serum 7.2 g/dl (6.3-8.2)
[2023-07-23 17:03] LABS: INR 1.01 (0.9-1.1); Prothrombin Time 10.9 seconds (10.1-12.5)
[2023-07-23 17:19] LABS: Thyroid Stimulating Hormone 2.88 uIU/mL (0.465-4.68)
== END ==
LOC: LAB.DROPOF 07-24 08:30
PROVIDERS: PCP Nurse Practitioner Family; Visit Provider Nurse Practitioner Family
DX: E11.9 Type 2 diabetes mellitus without complications (principal); E03.9 Hypothyroidism, unspecified; Z95.2 Presence of prosthetic heart valve; Z79.01 Long term (current) use of anticoagulants; Z79.85 Long-term (current) use of injectable non-insulin antidiabetic drugs
CPT/HCPCS: 80053; 83036; 84443; 85025; 85610

== ENCOUNTER 2023-10-14 18:56 | Outpatient (CLI) | payer OTHER, SELFPAY ==
[2023-10-14 16:40] LABS: Basophils # 0.1 K/mm3 (0-0.2); Basophils % 1.4 % (0.1-2.0); Eosinophils # 0.1 K/mm3 (0.0-0.4); Eosinophils % 1.8 % (0.1-12.0); Hematocrit 42.5 % (37.0-47.0); Hemoglobin 13.6 g/dL (12.2-16.2); Lymphocytes # 1.4 K/mm3 (0.7-4.5); Lymphocytes % 22.3 % (10-50); Mean Corpuscular Hemoglobin 29.7 pg (27.0-31.2); Mean Corpuscular Volume 92.8 fl (81-99); Mean Platelet Volume 10.2 fl (7.4-10.4); Monocytes # 0.3 K/mm3 (0.1-1.0); Monocytes % 5.2 % (1.7-9.3); Neutrophils # 4.5 K/mm3 (1.8-7.8); Neutrophils % 69.3 % (37.0-80.0); Platelet Count 348 K/mm3 (142-424); Red Blood Count 4.58 M/mm3 (4.20-5.40); Red Cell Distribution Width 13.9 % (11.5-17.5); White Blood Count 6.4 K/mm3 (4.8-10.8)
[2023-10-14 18:04] LABS: Albumin Level 4.2 g/dl (3.5-5.0); Albumin/Globulin Ratio 1.3 (1.1-1.8); Alkaline Phosphatase 66 U/L (38-126); Bilirubin,Total 0.3 mg/dl (0.2-1.3); Blood Urea Nitrogen 16 mg/dl (7-17); Calcium 8.9 mg/dl (8.4-10.2); Carbon Dioxide 31 mmol/L (22.0-30.0); Chloride 97 mmol/L (98-107); Chol/HDL Ratio 7.8 (1-3.5); Cholesterol 163 mg/dl (140-200); Estimated Glomerular Filt Rate 49 ml/min (>60); GFR (African American) 60 ML/MIN (>60); Globulin 3.2 g/dL (1.3-3.2); Glucose 101 mg/dl (74-100); HDL Cholesterol 21 mg/dl (40-60); Sodium 137 mmol/L (136-145); Total Protein,Serum 7.4 g/dl (6.3-8.2); Triglycerides 243 mg/dl (30-150); VLDL Cholesterol 49 mg/dL (0-40)
[2023-10-14 18:06] LABS: Alanine Aminotransferase 23 U/L (12-78); Aspartate Amino Transferase 25 U/L (14-36)
[2023-10-14 18:15] LABS: Direct LDL Cholesterol 102.11 mg/dL (100-129)
[2023-10-14 18:33] LABS: Thyroid Stimulating Hormone 2.25 uIU/mL (0.465-4.68)
[2023-10-14 18:53] LABS: Hemoglobin A1C 6.6 % (4.0-6.0)
[2023-10-14 19:00] LABS: Anion Gap 12.1 mEq/L (5-15); Potassium 3.1 mmoL/L (3.5-5.1)
== END 2023-10-14 23:59 ==
LOC: LAB.DROPOF 18:56
PROVIDERS: PCP Nurse Practitioner Family; Visit Provider Nurse Practitioner Family
DX: Z95.2 Presence of prosthetic heart valve (principal)
CPT/HCPCS: 80053; 80061; 83036; 84443; 85025; 85610

== ENCOUNTER 2023-10-21 16:18 | Outpatient (CLI) | payer OTHER, SELFPAY ==
[2023-10-21 16:32] LABS: INR 2.36 (0.9-1.1); Prothrombin Time 24.1 seconds (10.1-12.5)
== END 2023-10-21 23:59 ==
LOC: LAB.DROPOF 16:19
PROVIDERS: PCP Nurse Practitioner Family; Visit Provider Nurse Practitioner Family
DX: D68.9 Coagulation defect, unspecified (principal)
CPT/HCPCS: 85610

== ENCOUNTER 2023-10-29 09:20 | Outpatient (CLI) | payer OTHER, SELFPAY ==
--- NOTE | 2023-10-29 09:23 | CA_ITS ---
APPROVED REPORT EXAM: Comprehensive 2D, Doppler, and color-flow Echocardiogram Time Study Observer: Cara Martinez, RCS, RVS Ht: 5 ft 3 in Wt: 214lbs BSA: 1.99 BP: 107/65 mmHg Indications: MVR, SOA, Smoker, CP, SOA, Anemia 2D Dimensions Aortic Root 2.94 cm LA Volume 69.60 mL Left Atrium 4.35 cm LA Volume Index 35.00 mL/m2 (M/F) 16-34 RVID Base (AP4) 3.93 cm (M/F) 2.5-4.1 EF AP4 60.60 % LVOT 1.84 cm (M/F) 1.5-2.5 GL Strain -23.6 % M-Mode Dimensions RVDd 3.23 cm (0.9-2.6) LVDd 4.08 cm (3.5-5.7) Ao Diam 3.24 cm (2.0-3.7) LVDs 2.51 cm (3.5-5.7) IVSd 0.98 cm (0.6-1.1) PWd 1.15 cm (0.6-1.1) EF (Teich) 69.30% FS 38.50% EDV (Teich) 73.40 mL TAPSE 1.14 (<1.7) ESV (Teich) 22.50 mL LV Diastology E Decel Time 268 (160-240 msec) E/A Ratio 1.41 MED E' 4.4 (>= 7 cm/sec) MED A' 7.00 cm/s E'/MED E' Ratio 40.05 (<= 14) LAT E' 3.8 (>= 10 cm/sec) LAT A' 5.30 cm/s E/LAT E' Ratio 46.37 (<= 14) Aortic Valve LVOT Max 82.0 (70-110 cm/s) JERALD Index 0.80 cm2/m2 LVOT VTI 13.79 cm AoV Peak Teo. 129.0 (50-130 cm/s) AO Mean GR. 3.70 (<5 mmHg) AO VTI 22.9 (18-25 cm) JERALD (VTI) 1.60 (2.5-4.5 cm2) Mitral Valve MV E Max Teo. 176.0 (40-130 cm/s) MV A Velocity 125.0 (40-130 cm/s) E/A Ratio 1.41 MV Decel. Time 268 (160-240 ms) MV Mean Gr. 6.00 (<2mmHg) MV PHT 72.0 ms Pulmonary Valve AZ End VMAX 241.0 cm/s Tricuspid Valve TR P. Velocity 298.00 cm/s RAP Estimate 10.00 mmHg RVSP 45.50 mmHg Left Ventricle The left ventricle is normal size. The left ventricular systolic function is normal. The left ventricular ejection fraction is within the normal range. There is normal left ventricular wall thickness. There is normal LV segmental wall motion. The left ventricular diastolic function is normal. LVEF is 55%. Right Ventricle The right ventricle is normal size. The right ventricular systolic function is normal. Atria The left atrium is mildly dilated. The right atrium size is normal. There is no Doppler evidence of interatrial shunt. Aortic Valve The aortic valve opens well. There is no aortic valvular stenosis. Trace aortic regurgitation. Mitral Valve s/p MVR. The mitral valve prosthesis is well looked seated. Mean MV gradient 5 mmHg (HR 82 bpm). MVA by PHT is 3.0 cm???. Peak E velocity 170 cm/s. Mild central mitral regurgitation. Tricuspid Valve The tricuspid valve leaflets are thin and pliable. Mild tricuspid regurgitation. RVSP is 30-35 mmHg. Pulmonic Valve The pulmonary valve is normal in structure. Mild pulmonic regurgitation. Great Vessels The aortic root is normal in size. The ascending aorta is normal in size. IVC is normal in size and collapses >50% with inspiration. Pericardium There is no pericardial effusion. Other Information Study Quality: Fair Conclusion Normal biventricular systolic function. Mild LA dilation. s/p MVR (mean MV gradient 5 mmHg (HR 82 bpm). MVA by PHT is 3.0 cm???. Peak E velocity 170 cm/s). Mild TR. RVSP 30-35 mmHg. Compared to prior study from 07/2022, there are no significant changes. The MVR parameters are also similar. Electronically signed by : Shazia Escamilla MD 11/01/2023 20:25:27
== END 2023-10-29 23:59 ==
LOC: RT 09:21
PROVIDERS: PCP Nurse Practitioner Family; Visit Provider Nurse Practitioner
DX: R07.9 Chest pain, unspecified (principal)
CPT/HCPCS: 93306

== ENCOUNTER 2023-11-08 11:39 | Outpatient (CLI) | payer OTHER, SELFPAY ==
[2023-11-08 17:16] LABS: INR 4.62 (0.9-1.1)
[2023-11-08 17:22] LABS: Prothrombin Time 45.1 seconds (10.1-12.5)
== END 2023-11-08 23:59 ==
LOC: LAB.DROPOF 11-09 11:40
PROVIDERS: PCP Nurse Practitioner Family; Visit Provider Nurse Practitioner Family
DX: Z95.2 Presence of prosthetic heart valve (principal); Z51.81 Encounter for therapeutic drug level monitoring; Z79.01 Long term (current) use of anticoagulants
CPT/HCPCS: 85610

== ENCOUNTER 2023-11-23 18:00 | Outpatient (CLI) | payer OTHER, SELFPAY ==
[2023-11-23 18:07] LABS: INR 6.32 (0.9-1.1); Prothrombin Time 60.5 seconds (10.1-12.5)
== END 2023-11-23 23:59 | disposition home or self-care (01) ==
LOC: LAB.DROPOF 11-24 13:07
PROVIDERS: PCP Nurse Practitioner Family; Visit Provider Nurse Practitioner Family
DX: Z95.2 Presence of prosthetic heart valve (principal); Z51.81 Encounter for therapeutic drug level monitoring; Z79.01 Long term (current) use of anticoagulants
CPT/HCPCS: 85610

== ENCOUNTER 2023-12-31 09:37 | Outpatient (CLI) | payer OTHER, SELFPAY ==
[2023-12-31 17:09] LABS: Basophils # 0.1 K/mm3 (0-0.2); Basophils % 1.2 % (0.1-2.0); Eosinophils # 0.2 K/mm3 (0.0-0.4); Eosinophils % 2.6 % (0.1-12.0); Hematocrit 36.8 % (37.0-47.0); Hemoglobin 11.5 g/dL (12.2-16.2); Lymphocytes % 30.3 % (10-50); Mean Corpuscular HGB Conc 31.2 g/dL (31.8-35.4); Mean Corpuscular Hemoglobin 27.1 pg (27.0-31.2); Mean Corpuscular Volume 87.1 fl (81-99); Mean Platelet Volume 10.4 fl (7.4-10.4); Monocytes # 0.4 K/mm3 (0.1-1.0); Monocytes % 6.2 % (1.7-9.3); Neutrophils # 3.8 K/mm3 (1.8-7.8); Neutrophils % 59.6 % (37.0-80.0); Platelet Count 394 K/mm3 (142-424); Red Blood Count 4.23 M/mm3 (4.20-5.40); Red Cell Distribution Width 22.8 % (11.5-17.5); White Blood Count 6.4 K/mm3 (4.8-10.8)
[2023-12-31 17:10] LABS: Alanine Aminotransferase 22 U/L (12-78); Albumin Level 3.4 g/dl (3.5-5.0); Albumin/Globulin Ratio 1.1 (1.1-1.8); Alkaline Phosphatase 55 U/L (38-126); Aspartate Amino Transferase 31 U/L (14-36); Bilirubin,Total 0.2 mg/dl (0.2-1.3); Blood Urea Nitrogen 7 mg/dl (7-17); Calcium 8.7 mg/dl (8.4-10.2); Carbon Dioxide 30 mmol/L (22.0-30.0); Chloride 105 mmol/L (98-107); Estimated Glomerular Filt Rate 69 ml/min (>60); GFR (African American) 83 ML/MIN (>60); Globulin 3.2 g/dL (1.3-3.2); Glucose 124 mg/dl (74-100); Magnesium 1.5 mg/dl (1.6-2.3); Sodium 144 mmol/L (136-145); Total Protein,Serum 6.6 g/dl (6.3-8.2)
[2023-12-31 18:00] LABS: Vitamin B12 243 pg/mL (239-931)
[2023-12-31 18:14] LABS: Prothrombin Time 50.8 seconds (10.1-12.5)
[2023-12-31 18:16] LABS: INR 5.24 (0.9-1.1)
[2023-12-31 19:50] LABS: Hemoglobin A1C 5.5 % (4.0-6.0)
== END 2023-12-31 23:59 | disposition home or self-care (01) ==
LOC: LAB.DROPOF 01-03 09:37
PROVIDERS: PCP Nurse Practitioner Family; Visit Provider Nurse Practitioner Family
DX: Z95.2 Presence of prosthetic heart valve (principal); E78.5 Hyperlipidemia, unspecified; R20.2 Paresthesia of skin; I10 Essential (primary) hypertension; F17.210 Nicotine dependence, cigarettes, uncomplicated; E11.9 Type 2 diabetes mellitus without complications; Z79.84 Long term (current) use of oral hypoglycemic drugs; Z79.85 Long-term (current) use of injectable non-insulin antidiabetic drugs
CPT/HCPCS: 80050; 80053; 82607; 83036; 83735; 84443; 85025; 85610

== ENCOUNTER 2024-01-20 10:32 | Outpatient (CLI) | payer OTHER, SELFPAY ==
[2024-01-20 17:18] LABS: INR 1.67 (0.9-1.1); Prothrombin Time 17.8 seconds (10.1-12.5)
== END 2024-01-20 23:59 | disposition home or self-care (01) ==
LOC: LAB.DROPOF 01-21 10:32
PROVIDERS: PCP Nurse Practitioner Family; Visit Provider Nurse Practitioner Family
DX: Z79.01 Long term (current) use of anticoagulants (principal)
CPT/HCPCS: 85610

== ENCOUNTER 2024-02-25 11:24 | Outpatient (CLI) | payer OTHER, SELFPAY ==
[2024-02-25 16:42] LABS: INR 1.64 (0.9-1.1); Prothrombin Time 17.5 seconds (10.1-12.5)
== END 2024-02-25 23:59 | disposition home or self-care (01) ==
LOC: LAB.DROPOF 02-28 11:24
PROVIDERS: PCP Nurse Practitioner Family; Visit Provider Nurse Practitioner Family
DX: Z95.2 Presence of prosthetic heart valve (principal)
CPT/HCPCS: 85610

== ENCOUNTER 2024-08-24 10:30 | Outpatient (CLI) | payer OTHER, SELFPAY ==
[2024-08-24 16:18] LABS: Basophils # 0.1 K/mm3 (0-0.2); Basophils % 0.7 % (0.1-2.0); Eosinophils # 0.2 K/mm3 (0.0-0.4); Eosinophils % 1.8 % (0.1-12.0); Hematocrit 43.1 % (37.0-47.0); Hemoglobin 13.8 g/dL (12.2-16.2); Lymphocytes # 1.6 K/mm3 (0.7-4.5); Lymphocytes % 17.6 % (10-50); Mean Corpuscular Hemoglobin 28.7 pg (27.0-31.2); Mean Corpuscular Volume 89.6 fl (81-99); Mean Platelet Volume 11.7 fl (7.4-10.4); Monocytes # 0.7 K/mm3 (0.1-1.0); Monocytes % 7.6 % (1.7-9.3); Neutrophils # 6.5 K/mm3 (1.8-7.8); Neutrophils % 71.9 % (37.0-80.0); Platelet Count 436 K/mm3 (142-424); Red Blood Count 4.81 M/mm3 (4.20-5.40); Red Cell Distribution Width 14.4 % (11.5-17.5); White Blood Count 9.1 K/mm3 (4.8-10.8)
[2024-08-24 16:30] LABS: INR 1.21 (0.9-1.1); Prothrombin Time 13.1 seconds (9.2-12.1)
[2024-08-24 17:07] LABS: Alanine Aminotransferase 36 U/L (12-78); Albumin Level 5.4 g/dl (3.5-5.0); Albumin/Globulin Ratio 1.7 (1.1-1.8); Alkaline Phosphatase 87 U/L (38-126); Anion Gap 20.7 mEq/L (5-15); Aspartate Amino Transferase 38 U/L (14-36); Bilirubin,Total 0.4 mg/dl (0.2-1.3); Blood Urea Nitrogen 20 mg/dl (7-17); Calcium 10.2 mg/dl (8.4-10.2); Carbon Dioxide 22 mmol/L (22.0-30.0); Chloride 99 mmol/L (98-107); Chol/HDL Ratio 8.4 (1-3.5); Cholesterol 185 mg/dl (140-200); Estimated Glomerular Filt Rate 61 ml/min (>60); GFR (African American) 73 ML/MIN (>60); Globulin 3.1 g/dL (1.3-3.2); Glucose 105 mg/dl (74-100); HDL Cholesterol 22 mg/dl (40-60); Potassium 4.7 mmoL/L (3.5-5.1); Sodium 137 mmol/L (136-145); Total Protein,Serum 8.5 g/dl (6.3-8.2); Triglycerides 234 mg/dl (30-150); VLDL Cholesterol 47 mg/dL (0-40)
[2024-08-24 17:11] LABS: Hemoglobin A1C 6.1 % (4.0-6.0)
[2024-08-24 17:19] LABS: Direct LDL Cholesterol 128.29 mg/dL (100-129)
[2024-08-24 17:24] LABS: 25-OH Vitamin D, Total 14.2 ng/mL (30-100)
[2024-08-24 17:25] LABS: T4 (Thyroxine) 8.3 ug/dl (5.53-11.0)
[2024-08-24 17:39] LABS: Thyroid Stimulating Hormone 2.97 uIU/mL (0.465-4.68)
[2024-08-24 20:15] LABS: Vitamin B12 314 pg/mL (239-931)
== END 2024-08-24 23:59 | disposition home or self-care (01) ==
LOC: LAB.DROPOF 08-25 12:38
PROVIDERS: PCP Nurse Practitioner Family; Visit Provider Nurse Practitioner Family
DX: E78.5 Hyperlipidemia, unspecified (principal); Z95.2 Presence of prosthetic heart valve; E03.9 Hypothyroidism, unspecified; D68.9 Coagulation defect, unspecified; E11.9 Type 2 diabetes mellitus without complications; Z79.84 Long term (current) use of oral hypoglycemic drugs; R53.83 Other fatigue
CPT/HCPCS: 80053; 80061; 82306; 82607; 83036; 84436; 84443; 85025; 85610

== ENCOUNTER 2024-10-31 13:35 | Outpatient (CLI) | payer OTHER, SELFPAY ==
[2024-10-31 17:50] LABS: Basophils # 0.1 K/mm3 (0-0.2); Basophils % 0.8 % (0.1-2.0); Eosinophils # 0.2 K/mm3 (0.0-0.4); Eosinophils % 2.1 % (0.1-12.0); Hematocrit 38.9 % (37.0-47.0); Hemoglobin 12.2 g/dL (12.2-16.2); Lymphocytes # 1.7 K/mm3 (0.7-4.5); Mean Corpuscular HGB Conc 31.4 g/dL (31.8-35.4); Mean Corpuscular Hemoglobin 28.3 pg (27.0-31.2); Mean Corpuscular Volume 90.3 fl (81-99); Mean Platelet Volume 11.8 fl (7.4-10.4); Monocytes # 0.7 K/mm3 (0.1-1.0); Monocytes % 9.1 % (1.7-9.3); Neutrophils # 4.8 K/mm3 (1.8-7.8); Neutrophils % 64.3 % (37.0-80.0); Platelet Count 346 K/mm3 (142-424); Red Blood Count 4.31 M/mm3 (4.20-5.40); Red Cell Distribution Width 14.9 % (11.5-17.5); White Blood Count 7.5 K/mm3 (4.8-10.8)
[2024-10-31 17:52] LABS: INR 2.23 (0.9-1.1); Prothrombin Time 23.1 seconds (10.1-12.5)
[2024-10-31 18:04] LABS: Alanine Aminotransferase 35 U/L (12-78); Albumin Level 4.2 g/dl (3.5-5.0); Albumin/Globulin Ratio 1.1 (1.1-1.8); Alkaline Phosphatase 83 U/L (38-126); Anion Gap 16.4 mEq/L (5-15); Aspartate Amino Transferase 56 U/L (14-36); Bilirubin,Total 0.4 mg/dl (0.2-1.3); Blood Urea Nitrogen 21 mg/dl (7-17); Calcium 9.4 mg/dl (8.4-10.2); Carbon Dioxide 26 mmol/L (22.0-30.0); Chloride 100 mmol/L (98-107); Estimated Glomerular Filt Rate 49 ml/min (>60); GFR (African American) 59 ML/MIN (>60); Globulin 3.9 g/dL (1.3-3.2); Glucose 136 mg/dl (74-100); Potassium 4.4 mmoL/L (3.5-5.1); Sodium 138 mmol/L (136-145); Total Protein,Serum 8.1 g/dl (6.3-8.2)
[2024-10-31 18:36] LABS: Thyroid Stimulating Hormone 2.92 uIU/mL (0.465-4.68)
[2024-10-31 18:50] LABS: HIV Combo NEGATIVE (Negative)
[2024-10-31 18:52] LABS: Hemoglobin A1C 6.5 % (4.0-6.0)
[2024-10-31 18:58] LABS: Hepatitis C Ab Qual. W/ RFX NEGATIVE (Negative)
== END 2024-10-31 23:59 | disposition home or self-care (01) ==
LOC: LAB.DROPOF 11-01 09:15
PROVIDERS: PCP Nurse Practitioner Family; Visit Provider Nurse Practitioner Family
DX: E11.9 Type 2 diabetes mellitus without complications (principal); Z95.2 Presence of prosthetic heart valve; Z11.59 Encounter for screening for other viral diseases
CPT/HCPCS: 80053; 83036; 84443; 85025; 85610; 86803; 87389

== ENCOUNTER 2024-12-26 10:15 | Outpatient (CLI) | payer OTHER, SELFPAY | END 2024-12-26 23:59 | disposition home or self-care (01) | LOC: LAB.DROPOF 12-27 10:43 | PROVIDERS: PCP Nurse Practitioner Family; Visit Provider Nurse Practitioner Family | DX: R05.9 Cough, unspecified (principal) | CPT/HCPCS: 87070 ==

== ENCOUNTER 2025-04-05 08:20 | Outpatient (CLI) | payer OTHER, SELFPAY ==
[2025-04-05 08:45] LABS: Anion Gap 12.3 mEq/L (5-15); Blood Urea Nitrogen 20 mg/dl (7-17); Calcium 9.3 mg/dl (8.4-10.2); Carbon Dioxide 27 mmol/L (22.0-30.0); Chloride 102 mmol/L (98-107); Creatinine,Serum 1.30 mg/dl (0.52-1.04); Estimated Glomerular Filt Rate 44 ml/min (>60); GFR (African American) 54 ML/MIN (>60); Glucose 179 mg/dl (74-100); Potassium 4.3 mmoL/L (3.5-5.1); Sodium 137 mmol/L (136-145)
--- NOTE | 2025-04-05 09:30 | MR_ITS ---
FINAL REPORT TECHNIQUE: Multiplanar and multisequence imaging of the brain was obtained before and after contrast administration. CLINICAL HISTORY: right sided weakness with headaches COMPARISON: None FINDINGS: Brain parenchymal: There is no mass effect or midline shift. There are no areas of abnormal signal intensity.The cerebellum and brainstem are without acute abnormality. Ventricles: The ventricles are symmetric in size and configuration without hydrocephalus. Note is made of a partially empty sella. Extra-axial spaces: No extra-axial fluid collections. Diffusion imaging: No areas of restricted diffusion to suggest acute infarct. Flow voids: Flow voids within the major intracranial vessels are preserved. Soft tissues: Fluid is present in the right mastoid air cells. There is mild mucoperiosteal thickening in the sphenoid sinus. Post contrast imaging: No abnormal enhancement. IMPRESSION: No acute intracranial abnormality and no pathologic contrast enhancement. Right mastoiditis, and chronic mild sphenoid sinusitis. Reviewed, Interpreted and Dictated by Alejandrina Bennett MD Transcribed by Nicole Michaud Authenticated and [facility]
[2025-04-05] MEDS: GADOTERIDOL INJ 20ML SYRINGE 20 ML IV (10:33)
[2025-04-05] MEDS: SODIUM CHLORIDE 0.9% 10ML SYR (RAD ONLY) 10 ML IV (10:33)
== END 2025-04-05 23:59 | disposition home or self-care (01) ==
LOC: RAD 08:21
PROVIDERS: PCP Nurse Practitioner Family; Visit Provider Physician Assistant
DX: H70.91 Unspecified mastoiditis, right ear (principal); J32.3 Chronic sphenoidal sinusitis; I34.0 Nonrheumatic mitral (valve) insufficiency; I10 Essential (primary) hypertension; D68.9 Coagulation defect, unspecified; R29.818 Other symptoms and signs involving the nervous system; Z95.2 Presence of prosthetic heart valve; R53.1 Weakness; R51.9 Headache, unspecified
CPT/HCPCS: 36415; 70553; 80048; A9576

== ENCOUNTER 2025-04-12 11:25 | Outpatient (CLI) | payer OTHER, SELFPAY ==
--- OUTSIDE RECORDS SUMMARY | 2024-10-28 17:30 | XMS_ITS ---
Author Organization [facility] D CADEN Address [address] [facility] [address] [place] [address] Care Team Providers Care Clock Repairer Name Role Phone Simon Flores Primary Care Provider Migration, Provider Unavailable Unavailable Allergies Allergen (clinical drug ingredient) Drug/Non Drug Allergy documented on EMR Reaction Allergy Type Onset Date Status PCN (uncoded) Unknown Allergy Active meperidine Demerol swelling/SOA Drug Allergy Act denny codeine Codeine stomach upset Drug Allergy Act denny [facility] Conversion Encounter Medications Medication SIG (Take, Route, [...] review and pick correct strength-formulat ion from [employer] options. If intended option is not shown, discontinue and re-order from Quick Search* Active Atorvastatin Calcium 20 MG 1 tab(s) orally once a day; Duration: 30 days Active Venlafaxine HCl ER 150 MG 1 capsule by mouth once daily; Duration: 30 days Active Encounters Encounter Location Date Provider Diagnosis [facility] P[facility] [address] [facility] [address] [place] [address] 10/28/2024 Provider Migration Plan Of Treatment Medication [...] *Please review and pick correct [facility] If intended option is not shown, discontinue and re-order from Quick Search* Atorvastatin Calcium 20 MG 1 tab(s) orally once a day; Duration: 30 days Venlafaxine HCl ER 150 MG 1 capsule by mouth once daily; Duration: 30 days Progress Notes * Debra STRANGE LDOB:[birth year] (45 yo F)Acc No.[id number]:10/28/2024 Patient: Myriam VEGASs Rickie Provider: Wilfrid Blunt :1980 A ge:44 Y S ex:Female Date:10/28/2024 Address:[address] [place], [place] [id number] Pcp:Simon Flores Subjective: * Chief Complaints: * 1 . [facility] To [facility] Conversion Encounter. * Medical History: * Medications: [...] Electronic signature of Prov ider Migration on 04/13/2025 at 11:45 AM EDT Sign off status: Pending * Provider: Wilfrid fierro Migration Date: 10/28/2024 Generated for Macho castillo/Uday/Arunitting on: 0 04/13/2025 11:45 AM EDT
[2025-04-12 20:03] LABS: Hematocrit 39.9 % (37.0-47.0); Hemoglobin 12.6 g/dL (12.2-16.2); Immature Granulocytes % 0.4 %; Mean Corpuscular HGB Conc 31.6 g/dL (31.8-35.4); Mean Corpuscular Hemoglobin 28.5 pg (27.0-31.2); Mean Corpuscular Volume 90.3 fl (81-99); Nucleated Red Blood Cells % 0 %; Platelet Count 349 K/mm3 (142-424); Red Blood Count 4.42 M/mm3 (4.20-5.40); Red Cell Distribution Width-SD 46.6 fL; White Blood Count 8.1 K/mm3 (4.8-10.8)
[2025-04-12 20:17] LABS: INR 1.01 (0.9-1.1); Prothrombin Time 11.2 seconds (10.1-12.5)
[2025-04-12 20:47] LABS: Albumin Level 4.4 g/dl (3.5-5.0); Chloride 97 mmol/L (98-107); Potassium 4.4 mmoL/L (3.5-5.1)
[2025-04-12 20:50] LABS: Alanine Aminotransferase 40 U/L (12-78); Albumin/Globulin Ratio 1.3 (1.1-1.8); Alkaline Phosphatase 92 U/L (38-126); Aspartate Amino Transferase 36 U/L (14-36); Bilirubin,Total 0.5 mg/dl (0.2-1.3); Blood Urea Nitrogen 17 mg/dl (7-17); Calcium 9.6 mg/dl (8.4-10.2); Carbon Dioxide 25 mmol/L (22.0-30.0); Cholesterol 144 mg/dl (140-200); Creatinine,Serum 1.10 mg/dl (0.52-1.04); Estimated Glomerular Filt Rate 54 ml/min (>60); GFR (African American) 65 ML/MIN (>60); Globulin 3.5 g/dL (1.3-3.2); Glucose 201 mg/dl (74-100); HDL Cholesterol 21 mg/dl (40-60); Total Protein,Serum 7.9 g/dl (6.3-8.2); Triglycerides 361 mg/dl (30-150)
[2025-04-12 21:21] LABS: Thyroid Stimulating Hormone 2.56 uIU/mL (0.465-4.68)
[2025-04-12 21:50] LABS: Anion Gap 19.4 mEq/L (5-15); Sodium 137 mmol/L (136-145)
[2025-04-13 11:14] LABS: Hemoglobin A1C 6.7 % (4.0-6.0)
--- OUTSIDE RECORDS SUMMARY | 2025-04-13 11:44 | XMS_ITS | Clinical Summary ---
Author Organization [facility] Address [address] [place] [address] Care Team Providers Care Opener Name Role Phone Simon Flores MD Primary Care Provider [phone] Allergies Active Allergy Reactions Criticality Noted Date Comments Codeine Other - please docum ent in the comment field Low 06/26/2021 Meperidine Hives,Unknown - Marleny ent states they do not know rxn details Medium 03/23/2011 Meperidine Hcl Other - please docum ent in the comment field Low 06/26/2021 Penicillins Hives,Unknown - Marleny ent states they do not know rxn details Medium 03/23/2011 Medications warfarin (Coumadin) 5 MG tablet 1 tab(s) Active venlafaxine XR (Effoxor-XR) 150 MG 24 hr capsule 1 (one) time each day at the same time. Active traZODone (Desyrel) 100 MG tablet Take 100 mg by mouth every night. 08/22/2021 Active spironolactone (Aldactone) 25 MG tablet Take 25 mg by mouth 1 (one) time each day. 02/05/2021 Active predniSONE (Deltasone) 20 MG tablet Take 20 mg by mouth 2 (two) times a day. 04/04/2021 Active potassium chloride CR (Klor-Con M20) 20 MEQ ER tablet TAKE 1 TABLET DAILY. 01/12/2019 Active omeprazole (PriLOSEC) [address] capsule 1 (one) time each day at the same time. 03/09/2018 Active metoprolol tartrate (Lopressor) 50 MG tablet every 12 (twelve) hours. 07/06/2019 Active losartan (Cozaar) 25 MG tablet TAKE 1 TABLET DAILY. 01/12/2019 Active hyoscyamine (Levsin) 0.125 MG SL tablet TAKE 1 TABLET BY MOUTH WITH MEALS AND AT BEDTIME 08/22/2021 Active hydrOXYzine pamoate (Vistaril) 25 MG capsule TAKE 1 CAPSULE BY MOUTH 4 TIMES DAILY NEEDED FOR ANXIETY 02/05/2021 Active fluticasone (Flonase) 50 MCG/ACT nasal spray USE DIRECTED. 06/02/2018 Active fenofibrate (Tricor) 145 MG tablet 1 (one) time each day at the same time. Active estradiol (Estrace) 1 MG tablet Take 1 mg by mouth 1 (one) time each day. 08/22/2021 Active enoxaparin (Lovenox) 80 MG/0.8ML solution INJECT 70 MG Twice daily 70 mg bid until INR is 1.8 or greater 08/31/2019 Active cyclobenzaprine (Flexeril) 10 MG tablet 1 tab(s) Active citalopram (CeleXA) 40 MG tablet TAKE 1 TABLET DAILY. 03/09/2018 Active atorvastatin (Lipitor) 20 MG tablet Take 20 mg by mouth 1 (one) time each day. 06/24/2021 Active albuterol (Ventolin HFA) 108 (90 Base) MCG/ACT inhaler 2 PUFFS FOUR TIMES DAILY NEEDED 03/09/2018 Active Active Problems Problem Noted Date Diagnosed Date Contusion of left lower leg 10/27/2021 Lower extremity edema 10/27/2021 Gastroesophageal reflux disease 10/13/2021 Atrial septal defect 04/20/2018 Immunizations Immunization Administration Dates Next Due Influenza, injectable, quadrivalent, preservativ e free 07/07/2018 Pneumococcal Polysaccharide PPV23 07/07/2018 Family History Medical History Relation Name Comments Diabetes Father Stroke Father Diabetes Mother Relation Name Status Comments Father Mother Social History Tobacco Use Types Packs/Day Years Used Date Smoking Tobacco: Every Day Smokeless Tobacco: Never Tobacco Cessation:Ready to Q uit: No; Counseling Given: Yes Alcohol Use Standard Drinks/Week Comments No 0 (1 standard drink = 0.6 oz pur e alcohol) Comments Unknown Sex and Gender Information Value Date Recorded Sex Assigned at Not on file Legal Sex Female 8:28 PM EDT Gender Identity Not on file Sexual Orientation Not on file Last Filed Vital Signs Vital Sign Reading Time Taken Comments Blood Pressure 127/66 10/27/2021 1:54 PM EDT Pulse 81 10/27/2021 1:54 PM EDT Temperature 36.6 C (97.8 F) 10/27/2021 1:54 PM EDT Respiratory Rate 20 10/27/2021 1:54 PM EDT Oxygen Saturation - - Inhaled Oxygen Concentration - - Weight 94.3 kg (207 lb 14 oz) 07/06/2019 2:27 PM EST Height 160 cm (5' 3 ) 07/06/2019 2:27 PM EST Body Mass Index 36.82 07/06/2019 2:27 PM EST Plan of Treatment Health Maintenance Due Date Last Done Comments [facility]-Depression Screening 1980 [facility]-Infant/Child/Adol SDOH Screenings 1980 [facility]-Varicella Vaccines (1 of 2 - 13+ 2-dose series) 1994 [facility]- SDOH Screenings 1999 [facility]-Adult SDOH Screenings 1999 [facility]-DTaP,Tdap,and Td Vaccine s (1 - Tdap) 01/18/2000 [facility]-Hepatitis B Vaccines (1 of 3 - 19+ 3-dose series) 01/18/2000 [facility]-Pap Smear 2002 HPV Vaccines (1 - 3-dose SCD M series) 01/18/2008 [facility]-Cervical Cancer Screening 2011 [facility]-HPV/Cotest 2011 [facility]-[id number]-24 Vaccine (1 - 20 24-25 season) 2025 [facility]-Influenza Vaccine (#1) 2025 07/07/2018 [facility]-Zoster Vaccines (1 of 2) 2031 [facility]-Pneumococcal Vaccine: Pediatrics (0 to 5 Years) and At-Risk Patients (6 to 49 Years) Aged Out 07/07/2018 No long er eligible based on patient's age to complete this topic [facility]-HIB Vaccines Aged Out No longer e ligible based on patient's age to complete this topic [facility]-Hepatitis A Vaccines Aged Out No longer eligible based on patient's age to complete this topic [facility]-IPV Vaccines Aged Out No longer e ligible based on patient's age to complete this topic [facility]-Rotavirus Vaccines Aged Out No lo nger eligible based on patient's age to complete this topic Insurance [employer] Care Teams Opener Relationship Specialty Start Date End Date Simon Flores MD [address] [place] [id number] PCP - General 12/06/20
--- OUTSIDE RECORDS SUMMARY | 2025-04-13 11:45 | XMS_ITS | Patient Health Record ---
Author Organization [facility] Address [address] [facility] [address] [place] [address] Care Team Providers Care Windsurfing Instructor Name Role Phone Simon Flores Primary Care Provider Migration, Provider Unavailable Unavailable Allergies Allergen (clinical drug ingredient) Drug/Non Drug Allergy documented on EMR Reaction Allergy Type Onset Date Status PCN (uncoded) Unknown Allergy Active meperidine Demerol swelling/SOA Drug Allergy Act denny codeine Codeine stomach upset Drug Allergy Act denny Medications Medication SIG (Take, Route, Frequency, Duration) Notes Start Date End Date Status ALBUTEROL (EQV-PROVENTIL HFA) 90 MCG/INH INHALE 2 PUFFS BY MOUTH EVERY 6 HOURS NEEDED; Duration: 25 *Please review for potential replacement for e-prescription and drug interaction check* Active OZEMPIC 2 MG/1.5 ML (0.25 MG OR 0.5 MG DOSE) 0.25 MG SUBCUTANEOUSLY ONCE A WEEK; Duration: 30 DAYS *Please review for potential replacement for e-prescription and drug interaction check* 04/16/2022 Active Omeprazole 20 MG 1 cap(s) orally once a day; Duration: 30 days Active VISTARIL PAMOATE 25 MG 1 CAP(S) ORALLY 4 TIMES A DAY PRN ANXIETY; Duration: 30 DAYS *Please review for potential replacement for e-prescription and drug interaction check* Active Warfarin Sodium 5 MG 1 tab(s) orally onc e a day Active Fluticasone Propionate 50 MCG/ACT 1 spray(s) intranasally once a day; Duration: 30 days Active Cyclobenzaprine HCl 10 MG 1 tab(s) orally 3 times a day prn Active Metoprolol Succinate ER 25 MG TAKE 1 TABLET BY MOUTH EVERY DAY; Duration: 30 days Active Lisinopril-hydroCHLOR Othiazide 10-12.5 MG 1/2 tab orally once a day; Duration: 30 days Active Estradiol 1 MG 1 tab(s) orally once a day; Duration: 30 days Active Fenofibrate 145 MG 1 tab(s) orally once a day; Duration: 30 days Active traZODone HCl 100 MG 1 tab(s) orally onc e a day at bedtime; Duration: 30 days Active Stiolto Respimat 2.5 MCG-2.5 MCG/INH INHALE 2 PUFFS BY MOUTH EVERY 24 HOURS; Duration: 30 DAYS *Please review and pick correct strength-formulat ion from [employer] options. If intended option is not shown, discontinue and re-order from Quick Search* Active Atorvastatin Calcium 20 MG 1 tab(s) orally once a day; Duration: 30 days Active Venlafaxine HCl ER 150 MG 1 capsule by mouth once daily; Duration: 30 days Active Social History Tobacco Use: Social History Observation Description Date Details (start date - stop date) Current Smoker NA - NA Smoking: Question Answer Notes Are you a: current smoker How often do you smoke cigarettes? every day How many cigarettes a day do you smoke? 6-10 Section Notes: Lives with her children and extended family. Lives with her children and extended family. Lives with her children and extended family. Lives with her children and extended family. Lives with her children and extended family. Lives with her children and extended family. Lives with her children and extended family. Lives with her children and extended family. Lives with her children and extended family. Lives with her children and extended family. Lives with her children and extended family. Lives with her children and extended family. Lives with her children and extended family. Lives with her children and extended family. Lives with her children and extended family. Lives with her children and extended family. Lives with her children and extended family. Lives with her children and extended family. Lives with her children and extended family. Lives with her children and extended family. Lives with her children and extended family. Lives with her children and extended family. Lives with her children and extended family. Lives with her children and extended family. Lives with her children and extended family. Lives with her children and extended family. Lives with her children and extended family. Lives with her children and extended family. Lives with her children and extended family. Lives with her children and extended family. Lives with her children and extended family. Lives with her children and extended family. Lives with her children and extended family. Lives with her children and extended family. Problems Problem Type SNOMED Code ICD Code Onset Dates Problem Status W/U Status Risk Notes Problem Mixed hyperlipidemia (694086556) Mixed hyperlipidemia (E78.2) Active confirmed Problem Allergic rhinitis caused by pollen (disorder) (35078785) Allergic rhinitis due to pollen (J30.1) Active confirmed Problem Intestinal malabsorption (889260358) Intestinal malabsorption, unspecified (K90.9) Active confirmed Problem Obesity (650944547) Obesity (E66.9) Active confirmed Problem Intermenstrual bleeding - irregular (95460289) Menorrhagia with irregular cycle (N92.1) Active confirmed Problem Panic disorder (368108600) Panic attacks (F41.0) Active confirmed Problem Gastroesophageal reflux disease (712571387) GERD without esophagitis (K21.9) Active confirmed Problem Tobacco abuse (5627401604) Tobacco abuse (Z72.0) Active confirmed Problem Body mass index 30.00 to 34.99 (305051172193372) BMI 34.0-34.9,adult (Z68.34) Active confirmed Problem Obese class I (755380352361715) BMI 33.0-33.9,adult (Z68.33) Active confirmed Problem Cigarette smoker (16497129) Cigarette smoker (F17.210) Active confirmed Problem COPD - Chronic obstructive pulmonary disease (19325515) Chronic obstructive pulmonary disease, unspecified COPD type (J44.9) Active confirmed Problem Mixed anxiety and depressive disorder (794142304) Anxiety associated with depression (F41.8) Active confirmed Problem Morbid obesity (528249722) Obesity (BMI 35.0-39.9 without comorbidity) (E66.01) Active confirmed Problem Uncomplicated mild persistent asthma (662787498) Mild persistent asthma without complication (J45.30) Active confirmed Problem Obesity (864859730) Non morbid obesity, unspecified obesity type (E66.9) Active confirmed Problem Tobacco user (636345247) Cigarette nicotine dependence without complication (F17.210) Active confirmed Problem Use of anticoagulation (044255010) Chronic anticoagulation (Z79.01) Active confirmed Problem Sciatica (65648961) Right sided sciatica (M54.31) Active confirmed Problem Essential hypertension (18265488) Essential hypertension with goal blood pressure less than 140\/90 (I10) Active confirmed Problem Type II diabetes mellitus without complication (157299287) Type 2 diabetes mellitus without complication, without long-term current use of insulin (E11.9) Active confirmed Problem Mechanical heart valve prosthesis (452343736) Mechanical heart valve present (Z95.2) Active confirmed Problem Body mass index 35.00 to 39.99 (341161032252451) Adult BMI 36.0-36.9 kg/sq m (Z68.36) Active confirmed Problem History of placement of stent in anterior descending branch of left coronary artery (situation) (027816896) History of placement of stent in LAD coronary artery (Z95.5) Active confirmed Problem Status post karey ce closure of ASD (Z87.74) Active confirmed Problem Coagulopathy (09783411) Coagulopathy (D68.9) Active confirmed Problem Insomnia disorder related to another mental disorder (03592136) Insomnia, psychophysiological (F51.04) Active confirmed Encounters Encounter Location Date Provider Diagnosis [facility] [address] [facility] [address] [place] [address] 10/28/2024 Provider Migration Plan Of Treatment Pending Test Test Name Order Date Physical Therapy 04/13/2016 Occupational Therapy : Eval & Treatment 04/13/2016 H-CBC with AUTO DIFF 12/24/2016 C-CMP 05/09/2018 VENIPUNCT, ROUTINE* 2016 Pulmonary Function Test- Complete 2021 M-Complete Blood Count Auto Diff 021 M-Complete Blood Count Auto Diff 019 M-Complete Blood Count Auto Diff 023 M-INR/PT 08/10/2022 M-INR/PT 04/18/2019 M-INR/PT 11/27/2020 M-Comprehensive Metabolic Panel 11/28/19 21 M-Comprehensive Metabolic Panel 04/18/20 19 M-Comprehensive Metabolic Panel 08/10/19 23 M-Hemoglobin A1C 08/10/2022 M-Lipid Panel 11/27/2020 M-Lipid Panel 08/10/2022 M-Thyroid Stimulating Hormone 11/27/2020 CBC With Platelet And Differential 11/13 Insurance Providers Payer Name Payer Address Payer Phone Subscriber Number Group Number Insured Name Patient Relationship to Insured Coverage Start Date Coverage End Date [employer] [facility] [address] [address] [place] [address] [id number] Debra Carvalho Self - patient is the insured Medical (General) History Medical History History ICD Code Asthma Depression and Anxiety Hypertension Tobacco Abuse Obesity GERD colonoscopy July 2020 wit h multiple tubular [id number] followup recommended Surgical History Surgery Date(Month/Year) cholecystectomy 2009 Tubal Ligation 2010 Total abd hysterectomy 11/2016 valve replacement 06/2018 Hospitalization History Reason Date(Month/Year) above left leg 04/2021
== END 2025-04-12 23:59 ==
LOC: LAB.DROPOF 04-13 11:43
PROVIDERS: PCP Nurse Practitioner Family; Visit Provider Nurse Practitioner Family
DX: E03.9 Hypothyroidism, unspecified (principal); E78.5 Hyperlipidemia, unspecified; E11.9 Type 2 diabetes mellitus without complications; Z51.81 Encounter for therapeutic drug level monitoring; Z79.01 Long term (current) use of anticoagulants; I10 Essential (primary) hypertension; E78.1 Pure hyperglyceridemia
CPT/HCPCS: 80053; 80061; 83036; 84443; 85025; 85610

== ENCOUNTER 2025-04-16 12:00 | Outpatient (CLI) | payer OTHER, SELFPAY ==
--- OUTSIDE RECORDS SUMMARY | 2024-10-28 17:30 | XMS_ITS ---
Author Organization [facility] D CADEN Address [address] [facility] [address] [place] [address] Care Team Providers Care Upper Lining Cementer Name Role Phone Simon Flores Primary Care Provider [phone] Migration, Provider Unavailable Unavailable Allergies Allergen (clinical drug ingredient) Drug/Non Drug Allergy documented on EMR Reaction Allergy Type Onset Date Status PCN (uncoded) Unknown Allergy Active meperidine Demerol swelling/SOA Drug Allergy Act denny codeine Codeine stomach upset Drug Allergy Act denny [facility] Conversion Encounter Medications Medication SIG [...] review and pick correct strength-formulat ion from [employer] options. If intended option is not shown, discontinue and re-order from Quick Search* Active Atorvastatin Calcium 20 MG 1 tab(s) orally once a day; Duration: 30 days Active Venlafaxine HCl ER 150 MG 1 capsule by mouth once daily; Duration: 30 days Active Encounters Encounter Location Date Provider Diagnosis [facility] P[facility] [address] [facility] [address] [place] [address] 10/28/2024 Provider Migration Plan Of Treatment Medication [...] *Please review and pick correct [facility]. If intended option is not shown, discontinue and re-order from Quick Search* Atorvastatin Calcium 20 MG 1 tab(s) orally once a day; Duration: 30 days Venlafaxine HCl ER 150 MG 1 capsule by mouth once daily; Duration: 30 days Progress Notes * Debra STRANGE LDOB:[birth year] (45 yo F)Acc No.[id number]:10/28/2024 Patient: Myriam VEGASs Rickie Provider: Wilfrid Blunt :1980 A ge:44 Y S ex:Female Date:10/28/2024 Address:[address] [place], [place] [id number] Pcp:Simon Flores Subjective: * Chief Complaints: * 1 . [facility] To [facility] Conversion Encounter. * Medical History: [...] Electronic signature of Prov ider Migration on 04/16/2025 at 12:03 PM EDT Sign off status: Pending * Provider: Wilfrid fierro Migration Date: 10/28/2024 Generated for Macho castillo/Uday/Arunitting on: 04/16/2025 12:03 PM EDT
--- OUTSIDE RECORDS SUMMARY | 2025-04-16 12:03 | XMS_ITS | Patient Health Record ---
Author Organization [facility] Address [address] [facility] [address] [place] [address] Care Team Providers Care Homicide Squad Captain Name Role Phone Simon Flores Primary Care [...] review and pick correct strength-formulat ion from [employer] options. If intended option is not shown, [...] W/U Status Risk Notes Problem Mixed hyperlipidemia (704669269) Mixed hyperlipidemia (E78.2) Active confirmed Problem Allergic rhinitis caused by pollen (disorder) (80562589) Allergic rhinitis due to pollen (J30.1) Active confirmed Problem Intestinal malabsorption (074558215) Intestinal malabsorption, unspecified (K90.9) Active confirmed Problem Obesity (955774477) Obesity (E66.9) Active confirmed Problem Intermenstrual bleeding - irregular (31071902) Menorrhagia with irregular cycle (N92.1) Active confirmed Problem Panic disorder (455070888) Panic attacks (F41.0) Active confirmed Problem Gastroesophageal reflux disease (568051249) GERD without esophagitis (K21.9) Active confirmed Problem Tobacco abuse (7916275354) Tobacco abuse (Z72.0) Active confirmed Problem Body mass index 30.00 to 34.99 (747265448685756) BMI 34.0-34.9,adult (Z68.34) Active confirmed Problem Obese class I (513860668190042) BMI 33.0-33.9,adult (Z68.33) Active confirmed Problem Cigarette smoker (98951291) Cigarette smoker (F17.210) Active confirmed Problem COPD - Chronic obstructive pulmonary disease (29786633) Chronic obstructive pulmonary disease, unspecified COPD type (J44.9) Active confirmed Problem Mixed anxiety and depressive disorder (501809489) Anxiety associated with depression (F41.8) Active confirmed Problem Morbid obesity (529628147) Obesity (BMI 35.0-39.9 without comorbidity) (E66.01) Active confirmed Problem Uncomplicated mild persistent asthma (295839006) Mild persistent asthma without complication (J45.30) Active confirmed Problem Obesity (370646090) Non morbid obesity, unspecified obesity type (E66.9) Active confirmed Problem Tobacco user (052883770) Cigarette nicotine dependence without complication (F17.210) Active confirmed Problem Use of anticoagulation (394081436) Chronic anticoagulation (Z79.01) Active confirmed Problem Sciatica (95572463) Right sided sciatica (M54.31) Active confirmed Problem Essential hypertension (98158123) Essential hypertension with goal blood pressure less than 140\/90 (I10) Active confirmed Problem Type II diabetes mellitus without complication (222636233) Type 2 diabetes mellitus without complication, without long-term current use of insulin (E11.9) Active confirmed Problem Mechanical heart valve prosthesis (703094882) Mechanical heart valve present (Z95.2) Active confirmed Problem Body mass index 35.00 to 39.99 (044068882198778) Adult BMI 36.0-36.9 kg/sq m (Z68.36) Active confirmed Problem History of placement of stent in anterior descending branch of left coronary artery (situation) (490436353) History of placement of stent in LAD coronary artery (Z95.5) Active confirmed Problem Status post karey ce closure of ASD (Z87.74) Active confirmed Problem Coagulopathy (00774332) Coagulopathy (D68.9) Active confirmed Problem Insomnia disorder related to another mental disorder (13976441) Insomnia, psychophysiological (F51.04) Active confirmed Encounters Encounter Location Date Provider Diagnosis [facility] [address] [facility] [address] [place] [address] 10/28/2024 Provider Migration Plan Of Treatment Pending Test Test Name Order Date Physical Therapy 04/13/2016 Occupational Therapy : Eval & Treatment 04/13/2016 H-CBC with AUTO DIFF 12/24/2016 C-CMP 05/09/2018 VENIPUNCT, ROUTINE* 2016 Pulmonary Function Test- Complete 2021 M-Complete Blood Count Auto Diff 023 M-Complete Blood Count Auto Diff 021 M-Complete Blood Count Auto Diff 019 M-INR/PT 04/18/2019 M-INR/PT 11/27/2020 M-INR/PT 08/10/2022 M-Comprehensive Metabolic Panel 11/28/19 21 M-Comprehensive Metabolic Panel 08/10/19 23 M-Comprehensive Metabolic Panel 04/18/20 19 M-Hemoglobin A1C 08/10/2022 M-Lipid Panel 08/10/2022 M-Lipid Panel 11/27/2020 M-Thyroid Stimulating Hormone 11/27/2020 CBC With Platelet And Differential 11/13 Insurance Providers Payer Name Payer Address Payer Phone Subscriber Number Group Number Insured Name Patient Relationship to Insured Coverage Start Date Coverage End Date AETNA [facility] [address] [address] [place] [address] [id number] Debra Carvalho Self - patient is the insured Medical (General) History Medical History History ICD Code Asthma Depression and Anxiety Hypertension Tobacco Abuse Obesity GERD colonoscopy July 2020 wit h multiple tubular [id number]-zpmc followup recommended Surgical History Surgery Date(Month/Year) cholecystectomy 2009 Tubal Ligation 2010 Total abd hysterectomy 11/2016 valve replacement 06/2018 Hospitalization History Reason Date(Month/Year) above left leg 04/2021
--- OUTSIDE RECORDS SUMMARY | 2025-04-16 12:03 | XMS_ITS | Clinical Summary ---
Author Organization [facility] Address [address] [place] [address] Care Team Providers Care Charge Hand Name Role Phone Simon Flores MD Primary Care Provider [phone] Allergies Active Allergy Reactions Criticality Noted Date [...] Date Contusion of left lower leg 10/27/2021 Gastroesophageal reflux disease 10/13/2021 Atrial septal defect 04/20/2018 Resolved Problems Problem Noted Date Diagnosed Date Resolved Date Lower extremity edema 10/27/20212024 Immunizations Immunization Administration Dates Next Due Influenza, [...] 01/18/2008 [facility]-Cervical Cancer Screening 2011 [facility]-HPV/Cotest 2011 [id number] Vaccine (1 - 20 24-25 season) 2025 [...] Insurance [employer] Care Teams Charge Hand Relationship Specialty Start Date End Date Simon Flores MD [address] [place] [id number] PCP - General 12/06/20
== END 2025-04-16 23:59 | disposition home or self-care (01) ==
LOC: ACC 12:01
PROVIDERS: PCP Nurse Practitioner Family; Visit Provider Physician Assistant
DX: Z95.2 Presence of prosthetic heart valve (principal)

== ENCOUNTER 2025-04-19 10:33 | Outpatient (CLI) | payer OTHER, SELFPAY ==
--- OUTSIDE RECORDS SUMMARY | 2024-10-28 17:30 | XMS_ITS ---
Author Organization [facility] D CADEN Address [address] [facility] [address] [place] [address] Care Team Providers Care Portable Track Crew Chief Name Role Phone Simon Flores Primary Care Provider [phone] Migration, Provider Unavailable Unavailable Allergies Allergen (clinical drug ingredient) Drug/Non Drug Allergy documented on EMR Reaction Allergy Type Onset Date Status PCN (uncoded) Unknown Allergy Active meperidine Demerol swelling/SOA Drug Allergy Act denny codeine Codeine stomach upset Drug Allergy Act denny [facility] Conversion Encounter Medications Medication SIG (Take, Route, [...] review and pick correct strength-formulat ion from [employer] options. If intended option is not shown, discontinue and re-order from Quick Search* Active Atorvastatin Calcium 20 MG 1 tab(s) orally once a day; Duration: 30 days Active Venlafaxine HCl ER 150 MG 1 capsule by mouth once daily; Duration: 30 days Active Encounters Encounter Location Date Provider Diagnosis [facility] PED [facility] [address] [facility] [address] [place] [address] 10/28/2024 Provider Migration Plan Of Treatment Medication [...] *Please review and pick [facility]. If intended option is not shown, discontinue and re-order from Quick Search* Atorvastatin Calcium 20 MG 1 tab(s) orally once a day; Duration: 30 days Venlafaxine HCl ER 150 MG 1 capsule by mouth once daily; Duration: 30 days Progress Notes * Debra STRANGE LDOB:[birth year] (45 yo F)Acc No.[id number]:10/28/2024 Patient: Myriam VEGASs Rickie Provider: Wilfrid Blunt :1980 A ge:44 Y S ex:Female Date:10/28/2024 Address:[address] [place], [place] [id number] Pcp:Simon Flores Subjective: * Chief Complaints: * 1 . [facility] To [facility] Conversion Encounter. * Medical History: * Medications: [...] Electronic signature of Prov ider Migration on 04/19/2025 at 10:36 AM EDT Sign off status: Pending * Provider: Wilfrid fierro Migration Date: 10/28/2024 Generated for Macho castillo/Uday/Arunitting on: 0 04/19/2025 10:36 AM EDT
--- OUTSIDE RECORDS SUMMARY | 2025-04-19 10:36 | XMS_ITS | Patient Health Record ---
Author Organization [facility] Address [address] [facility] [address] [place] [address] Care Team Providers Care Chart Computer Name Role Phone Simon Flores Primary Care Provider Migration, Provider Unavailable Unavailable Allergies Allergen (clinical drug ingredient) Drug/Non Drug Allergy documented on EMR Reaction Allergy Type Onset Date Status PCN (uncoded) Unknown Allergy Active meperidine Demerol swelling/SOA Drug Allergy Act dneny codeine Codeine stomach upset Drug Allergy Act [...] review and pick correct strength-formulat ion from [employer] options. If intended option is not shown, [...] W/U Status Risk Notes Problem Mixed hyperlipidemia (941239814) Mixed hyperlipidemia (E78.2) Active confirmed Problem Allergic rhinitis caused by pollen (disorder) (24715143) Allergic rhinitis due to pollen (J30.1) Active confirmed Problem Intestinal malabsorption (767107654) Intestinal malabsorption, unspecified (K90.9) Active confirmed Problem Obesity (986055490) Obesity (E66.9) Active confirmed Problem Intermenstrual bleeding - irregular (95733145) Menorrhagia with irregular cycle (N92.1) Active confirmed Problem Panic disorder (547059305) Panic attacks (F41.0) Active confirmed Problem Gastroesophageal reflux disease (786961772) GERD without esophagitis (K21.9) Active confirmed Problem Tobacco abuse (0853470560) Tobacco abuse (Z72.0) Active confirmed Problem Body mass index 30.00 to 34.99 (676467032073832) BMI 34.0-34.9,adult (Z68.34) Active confirmed Problem Obese class I (763497954610665) BMI 33.0-33.9,adult (Z68.33) Active confirmed Problem Cigarette smoker (57680739) Cigarette smoker (F17.210) Active confirmed Problem COPD - Chronic obstructive pulmonary disease (59788999) Chronic obstructive pulmonary disease, unspecified COPD type (J44.9) Active confirmed Problem Mixed anxiety and depressive disorder (903197100) Anxiety associated with depression (F41.8) Active confirmed Problem Morbid obesity (739332293) Obesity (BMI 35.0-39.9 without comorbidity) (E66.01) Active confirmed Problem Uncomplicated mild persistent asthma (541881873) Mild persistent asthma without complication (J45.30) Active confirmed Problem Obesity (511114360) Non morbid obesity, unspecified obesity type (E66.9) Active confirmed Problem Tobacco user (603594347) Cigarette nicotine dependence without complication (F17.210) Active confirmed Problem Use of anticoagulation (050203157) Chronic anticoagulation (Z79.01) Active confirmed Problem Sciatica (91680047) Right sided sciatica (M54.31) Active confirmed Problem Essential hypertension (28569823) Essential hypertension with goal blood pressure less than 140\/90 (I10) Active confirmed Problem Type II diabetes mellitus without complication (674325574) Type 2 diabetes mellitus without complication, without long-term current use of insulin (E11.9) Active confirmed Problem Mechanical heart valve prosthesis (365721955) Mechanical heart valve present (Z95.2) Active confirmed Problem Body mass index 35.00 to 39.99 (164998384403111) Adult BMI 36.0-36.9 kg/sq m (Z68.36) Active confirmed Problem History of placement of stent in anterior descending branch of left coronary artery (situation) (579875400) History of placement of stent in LAD coronary artery (Z95.5) Active confirmed Problem Status post karey ce closure of ASD (Z87.74) Active confirmed Problem Coagulopathy (30433147) Coagulopathy (D68.9) Active confirmed Problem Insomnia disorder related to another mental disorder (41734302) Insomnia, psychophysiological (F51.04) Active confirmed Encounters Encounter Location Date Provider Diagnosis [facility] [address] [facility] [address] [place] [address] 10/28/2024 Provider Migration Plan Of Treatment Pending Test Test Name Order Date Physical Therapy 04/13/2016 Occupational Therapy : Eval & Treatment 04/13/2016 H-CBC with AUTO DIFF 12/24/2016 C-CMP 05/09/2018 VENIPUNCT, ROUTINE* 2016 Pulmonary Function Test- Complete 2021 M-Complete Blood Count Auto Diff 023 M-Complete Blood Count Auto Diff 019 M-Complete Blood Count Auto Diff 021 M-INR/PT 11/27/2020 M-INR/PT 04/18/2019 M-INR/PT 08/10/2022 M-Comprehensive Metabolic Panel 08/10/19 23 M-Comprehensive Metabolic Panel 04/18/20 19 M-Comprehensive Metabolic Panel 11/28/19 21 M-Hemoglobin A1C 08/10/2022 M-Lipid Panel 08/10/2022 M-Lipid Panel 11/27/2020 M-Thyroid Stimulating Hormone 11/27/2020 CBC With Platelet And Differential 11/13 Insurance Providers Payer Name Payer Address Payer Phone Subscriber Number Group Number Insured Name Patient Relationship to Insured Coverage Start Date Coverage End Date AETNA [facility] [address] [address] [place] [address] [phone] [id number] Debra Carvalho Self - patient is the insured Medical (General) History Medical History History ICD Code Asthma Depression and Anxiety Hypertension Tobacco Abuse Obesity GERD colonoscopy July 2020 wit h multiple tubular zvhdtwe-gpa-tmxp followup recommended Surgical History Surgery Date(Month/Year) cholecystectomy 2009 Tubal Ligation 2010 Total abd hysterectomy 11/2016 valve replacement 06/2018 Hospitalization History Reason Date(Month/Year) above left leg 04/2021
--- OUTSIDE RECORDS SUMMARY | 2025-04-19 10:36 | XMS_ITS | Clinical Summary ---
Author Organization [facility] Address [address] [place] [address] Care Team Providers Care Slag Motor Operator Name Role Phone Simon Flores MD Primary Care Provider [phone] Allergies Active Allergy Reactions Criticality Noted Date [...] 01/18/2008 [facility]-Cervical Cancer Screening 2011 [facility]-HPV/Cotest 2011 [id number]-35 Vaccine (1 - 20 24-25 season) 2025 [...] Insurance [employer] Care Teams Slag Motor Operator Relationship Specialty Start Date End Date Simon Flores MD [address] [place] [id number] PCP - General 12/06/20
[2025-04-19 11:09] LABS: PHA INR Fingerstick 2.8 (0.9-1.1)
== END 2025-04-19 11:14 ==
LOC: ACC 10:33
PROVIDERS: PCP Nurse Practitioner Family; Visit Provider Physician Assistant
DX: Z79.01 Long term (current) use of anticoagulants (principal); Z95.2 Presence of prosthetic heart valve
CPT/HCPCS: 85610; 99211; G0463

== ENCOUNTER 2025-04-25 14:49 | Outpatient (CLI) | payer OTHER, SELFPAY ==
--- OUTSIDE RECORDS SUMMARY | 2025-04-25 14:51 | XMS_ITS | Clinical Summary ---
Author Organization [facility] Address [address] [place] [address] Care Team Providers Care Urban Sociologist Name Role Phone Simon Flores MD Primary Care Provider [phone] Allergies Active Allergy Reactions Criticality Noted Date [...] 01/18/2008 [facility]-Cervical Cancer Screening 2011 [facility]-HPV/Cotest 2011 ASI-ISICN-00 Vaccine (1 - 20 24-25 season) 2025 [...] Insurance [employer] Care Teams Urban Sociologist Relationship Specialty Start Date End Date Simon Flores MD [address] [place] [phone] PCP - General 12/06/20
[2025-04-25 15:55] LABS: PHA INR Fingerstick 3.8 (0.9-1.1)
--- NOTE | 2025-04-25 16:00 | MM_ITS ---
PROCEDURE INFORMATION: Exam: MG Bilateral Screening 3D Mammography Exam date and time: 04/25/2025 3:37 PM Age: 45 years old Clinical indication: Screening examination TECHNIQUE: Imaging protocol: Bilateral Screening tomosynthesis and 2D mammography including computer-aided detection (CAD) when performed. COMPARISON: 1. MG MM DIG SCREENING MAMM BI W/CAD 02/17/2023 1:11 PM 2. MG DXBI MM Dig mamm BI DX w/CAD 09/30/2017 3:07 PM FINDINGS: MAMMOGRAPHY: Breast composition: There are scattered areas of fibroglandular density. Mass: None. Architectural distortion: None. Calcifications: No suspicious calcifications. Asymmetric density: None. Skin thickening: None. Axillary adenopathy: None. IMPRESSION: No mammographic evidence of malignancy. Annual screening is recommended unless otherwise clinically indicated. ASSESSMENT: BI-RADS Category 1: Negative.
== END 2025-04-25 15:57 ==
LOC: ACC 14:49
PROVIDERS: PCP Nurse Practitioner Family; Visit Provider Physician Assistant
DX: Z12.31 Encounter for screening mammogram for malignant neoplasm of breast (principal); R92.323 Mammographic fibroglandular density, bilateral breasts; Z79.01 Long term (current) use of anticoagulants; Z95.2 Presence of prosthetic heart valve
CPT/HCPCS: 77063; 77067; 85610; 99211; G0463

== ENCOUNTER 2025-05-07 10:29 | Outpatient (CLI) | payer OTHER, SELFPAY ==
--- OUTSIDE RECORDS SUMMARY | 2024-10-28 17:30 | XMS_ITS ---
Author Organization [facility] D CADEN Address [address] [facility] [address] [place] [address] Care Team Providers Care Management Trainee Name Role Phone Simon Flores Primary Care Provider Migration, Provider Unavailable Unavailable Allergies Allergen (clinical drug ingredient) Drug/Non Drug Allergy documented on EMR Reaction Allergy Type Onset Date Status PCN (uncoded) Unknown Allergy Active meperidine Demerol swelling/SOA Drug Allergy Act denny codeine Codeine stomach upset Drug Allergy Act denny [facility] Conversion Encounter Medications Medication SIG (Take, Route, [...] review and pick correct strength-formulat ion from [employer] options. If intended option is not shown, discontinue and re-order from Quick Search* Active Atorvastatin Calcium 20 MG 1 tab(s) orally once a day; Duration: 30 days Active Venlafaxine HCl ER 150 MG 1 capsule by mouth once daily; Duration: 30 days Active Encounters Encounter Location Date Provider Diagnosis [facility] [address] [facility] [address] [place] [address] 10/28/2024 Provider Migration Plan Of Treatment Medication [...] *Please review and pick [facility]. If intended option is not shown, discontinue and re-order from Quick Search* Atorvastatin Calcium 20 MG 1 tab(s) orally once a day; Duration: 30 days Venlafaxine HCl ER 150 MG 1 capsule by mouth once daily; Duration: 30 days Progress Notes * Debra STRANGE LDOB:[birth year] (45 yo F)Acc No.[id number]:10/28/2024 Patient: Myriam VEGASs Rickie Provider: Wilfrid Blunt :1980 A ge:44 Y S ex:Female Date:10/28/2024 Address:[address] [place], [place] [id number] Pcp:Simon Flores Subjective: * Chief Complaints: * 1 . [facility] To [facility] Conversion Encounter. * Medical History: * Medications: [...] Electronic signature of Prov ider Migration on 05/07/2025 at 10:33 AM EDT Sign off status: Pending * Provider: Wilfrid fierro Migration Date: 0 10/28/2024 Generated for Macho castillo/Uday/Nansmitting on: 1 10:33 AM EDT
--- OUTSIDE RECORDS SUMMARY | 2025-05-07 10:33 | XMS_ITS | Patient Health Record ---
Author Organization [facility] Address [address] [facility] [address] [place] [address] Care Team Providers Care Pillar Worker Name Role Phone Simon Flores Primary Care [...] review and pick correct strength-formulat ion from [employer] options. If intended option is not shown, [...] W/U Status Risk Notes Problem Mixed hyperlipidemia (070570644) Mixed hyperlipidemia (E78.2) Active confirmed Problem Allergic rhinitis caused by pollen (disorder) (87871774) Allergic rhinitis due to pollen (J30.1) Active confirmed Problem Intestinal malabsorption (373559835) Intestinal malabsorption, unspecified (K90.9) Active confirmed Problem Obesity (177863406) Obesity (E66.9) Active confirmed Problem Intermenstrual bleeding - irregular (97749672) Menorrhagia with irregular cycle (N92.1) Active confirmed Problem Panic disorder (467542590) Panic attacks (F41.0) Active confirmed Problem Gastroesophageal reflux disease (768256473) GERD without esophagitis (K21.9) Active confirmed Problem Tobacco abuse (9490687723) Tobacco abuse (Z72.0) Active confirmed Problem Body mass index 30.00 to 34.99 (885776924346555) BMI 34.0-34.9,adult (Z68.34) Active confirmed Problem Obese class I (503913809193495) BMI 33.0-33.9,adult (Z68.33) Active confirmed Problem Cigarette smoker (80057111) Cigarette smoker (F17.210) Active confirmed Problem COPD - Chronic obstructive pulmonary disease (41497120) Chronic obstructive pulmonary disease, unspecified COPD type (J44.9) Active confirmed Problem Mixed anxiety and depressive disorder (418821349) Anxiety associated with depression (F41.8) Active confirmed Problem Morbid obesity (399331477) Obesity (BMI 35.0-39.9 without comorbidity) (E66.01) Active confirmed Problem Uncomplicated mild persistent asthma (769391027) Mild persistent asthma without complication (J45.30) Active confirmed Problem Obesity (277856810) Non morbid obesity, unspecified obesity type (E66.9) Active confirmed Problem Tobacco user (524716467) Cigarette nicotine dependence without complication (F17.210) Active confirmed Problem Use of anticoagulation (420332906) Chronic anticoagulation (Z79.01) Active confirmed Problem Sciatica (90699226) Right sided sciatica (M54.31) Active confirmed Problem Essential hypertension (84825434) Essential hypertension with goal blood pressure less than 140\/90 (I10) Active confirmed Problem Type II diabetes mellitus without complication (976270739) Type 2 diabetes mellitus without complication, without long-term current use of insulin (E11.9) Active confirmed Problem Mechanical heart valve prosthesis (702568382) Mechanical heart valve present (Z95.2) Active confirmed Problem Body mass index 35.00 to 39.99 (408022123184194) Adult BMI 36.0-36.9 kg/sq m (Z68.36) Active confirmed Problem History of placement of stent in anterior descending branch of left coronary artery (situation) (304871257) History of placement of stent in LAD coronary artery (Z95.5) Active confirmed Problem Status post karey ce closure of ASD (Z87.74) Active confirmed Problem Coagulopathy (86002721) Coagulopathy (D68.9) Active confirmed Problem Insomnia disorder related to another mental disorder (10821262) Insomnia, psychophysiological (F51.04) Active confirmed Encounters Encounter Location Date Provider Diagnosis [facility] [address] [facility] [address] [place] [address] 10/28/2024 Provider Migration Plan Of Treatment Pending [...] Coverage Start Date Coverage End Date AETNA [facility] [address] [address] [place] [address] [phone] [id number] Debra Carvalho Self - patient is the insured Medical (General) History Medical History History ICD Code Asthma Depression and Anxiety Hypertension Tobacco Abuse Obesity GERD colonoscopy July 2020 wit h multiple tubular yoztcqd-hpa-gvpc followup recommended Surgical History Surgery Date(Month/Year) cholecystectomy 2009 Tubal Ligation 2010 Total abd hysterectomy 11/2016 valve replacement 06/2018 Hospitalization History Reason Date(Month/Year) above left leg 04/2021
--- OUTSIDE RECORDS SUMMARY | 2025-05-07 10:33 | XMS_ITS | Clinical Summary ---
Author Organization [facility] Address [address] [place] [address] Care Team Providers Care Mud Analysis Supervisor Name Role Phone Simon Flores MD Primary Care Provider [phone] Allergies Active Allergy Reactions Criticality Noted Date Comments Codeine Other - please docum ent in the comment field Low 06/26/2021 Meperidine Hives,Unknown - Marleny ent states they do not know rxn details Medium 03/23/2011 Meperidine Hcl Other - please docum ent in the comment field Low 06/26/2021 Penicillins Hives,Unknown - Marelny ent states they do not know rxn [...] Date Last Done Comments [facility]-Depression Screening 1981 [facility]-/Child/Adol SDOH Screenings 1981 [facility]-Varicella Vaccines (1 of 2 - 13+ 2-dose series) 1994 [facility]- SDOH Screenings 1999 [facility]-Adult SDOH Screenings 1999 [facility]-DTaP,Tdap,and Td Vaccine s (1 - Tdap) 01/18/2000 [facility]-Hepatitis B Vaccines (1 of 3 - 19+ 3-dose series) 01/18/2000 [facility]-Pap Smear 2002 HPV Vaccines (1 - 3-dose SCD M series) 01/18/2008 [facility]-Cervical Cancer Screening 2011 [facility]-HPV/Cotest 2011 RIG-[id number]-31 Vaccine (1 - 20 24-25 season) 2025 [...] Insurance [employer] Care Teams Mud Analysis Supervisor Relationship Specialty Start Date End Date Simon Flores MD [address] [place] [id number] PCP - General 12/06/20
[2025-05-07 11:36] LABS: PHA INR Fingerstick 2.1 (0.9-1.1)
== END 2025-05-07 11:37 ==
LOC: ACC 10:30
PROVIDERS: PCP Nurse Practitioner Family; Visit Provider Physician Assistant
DX: Z79.01 Long term (current) use of anticoagulants (principal); Z95.2 Presence of prosthetic heart valve
CPT/HCPCS: 85610; 99211; G0463

== ENCOUNTER 2025-05-21 10:51 | Outpatient (CLI) | payer OTHER, SELFPAY ==
--- OUTSIDE RECORDS SUMMARY | 2024-10-28 17:30 | XMS_ITS ---
Author Organization [facility] D CADEN Address [address] [facility] [address] [place] [address] Care Team Providers Care Cook Morning Name Role Phone Simon Flores Primary Care Provider [phone] Migration, Provider Unavailable Unavailable Allergies Allergen (clinical drug ingredient) Drug/Non Drug Allergy documented on EMR Reaction Allergy Type Onset Date Status PCN (uncoded) Unknown Allergy Active meperidine Demerol swelling/SOA Drug Allergy Act denny codeine Codeine stomach upset Drug Allergy Act denny [facility] Conversion Encounter Medications Medication SIG (Take, Route, Frequency, Duration) Notes Start Date End Date Status Warfarin Sodium 5 MG 1 tab(s) orally onc e a day Active Fluticasone Propionate 50 MCG/ACT 1 spray(s) intranasally once a day; Duration: 30 days Active Cyclobenzaprine HCl 10 MG 1 tab(s) orally 3 times a day prn Active Metoprolol Succinate ER 25 MG TAKE 1 TABLET BY MOUTH EVERY DAY; Duration: 30 days Active ALBUTEROL (EQV-PROVENTIL HFA) 90 MCG/INH INHALE 2 PUFFS BY MOUTH EVERY 6 HOURS NEEDED; Duration: 25 *Please review for potential replacement for e-prescription and drug interaction check* Active Omeprazole 20 MG 1 cap(s) orally once a day; Duration: 30 days Active VISTARIL PAMOATE 25 MG 1 CAP(S) ORALLY 4 TIMES A DAY PRN ANXIETY; Duration: 30 DAYS *Please review for potential replacement for e-prescription and drug interaction check* Active Estradiol 1 MG 1 tab(s) orally once a day; Duration: 30 days Active Fenofibrate 145 MG 1 tab(s) orally once a day; Duration: 30 days Active traZODone HCl 100 MG 1 tab(s) orally onc e a day at bedtime; Duration: 30 days Active OZEMPIC 2 MG/1.5 ML (0.25 MG OR 0.5 MG DOSE) 0.25 MG SUBCUTANEOUSLY ONCE A WEEK; Duration: 30 DAYS *Please review for potential replacement for e-prescription and drug interaction check* 04/16/2022 Active Lisinopril-hydroCHLOR Othiazide 10-12.5 MG 1/2 tab orally once a day; Duration: 30 days Active Stiolto Respimat 2.5 MCG-2.5 MCG/INH INHALE 2 PUFFS BY MOUTH EVERY 24 HOURS; Duration: 30 DAYS *Please review and pick correct strength-formulat ion from [employer] options. If intended option is not shown, discontinue and re-order from Quick Search* Active Atorvastatin Calcium 20 MG 1 tab(s) orally once a day; Duration: 30 days Active Venlafaxine HCl ER 150 MG 1 capsule by mouth once daily; Duration: 30 days Active Encounters Encounter Location Date Provider Diagnosis [facility] PED [facility] [address] [facility] [address] [place] [address] 10/28/2024 Provider Migration Plan Of Treatment Medication Medication Name Sig Start Date Stop Date Notes Metoprolol Succinate ER 25 MG TAKE 1 TABLET BY MOUTH EVERY DAY; Duration: 30 days ALBUTEROL (EQV-PROVENTIL HFA) 90 MCG/INH INHALE 2 PUFFS BY MOUTH EVERY 6 HOURS NEEDED; Duration: 25 *Please review for potential replacement for e-prescription and drug interaction check* Omeprazole 20 MG 1 cap(s) orally once a day; Duration: 30 days VISTARIL PAMOATE 25 MG 1 CAP(S) ORALLY 4 TIMES A DAY PRN ANXIETY; Duration: 30 DAYS *Please review for potential replacement for e-prescription and drug interaction check* Estradiol 1 MG 1 tab(s) orally once a day; Duration: 30 days Fenofibrate 145 MG 1 tab(s) orally once a day; Duration: 30 days traZODone HCl 100 MG 1 tab(s) orally onc e a day at bedtime; Duration: 30 days OZEMPIC 2 MG/1.5 ML (0.25 MG OR 0.5 MG DOSE) 0.25 MG SUBCUTANEOUSLY ONCE A WEEK; Duration: 30 DAYS 04/16/2022 *Please review for potential replacement for e-prescription and drug interaction check* Lisinopril-hydroCHLOR Othiazide 10-12.5 MG 1/2 tab orally once a day; Duration: 30 days Stiolto Respimat 2.5 MCG-2.5 MCG/INH INHALE 2 PUFFS BY MOUTH EVERY 24 HOURS; Duration: 30 DAYS *Please review and pick correct strength[facility]ulation [facility] options. If intended option is not shown, discontinue and re-order from Quick Search* Atorvastatin Calcium 20 MG 1 tab(s) orally once a day; Duration: 30 days Venlafaxine HCl ER 150 MG 1 capsule by mouth once daily; Duration: 30 days Progress Notes * Debra STRANGE LDOB:[birth year] (45 yo F)Acc No.[id number]:10/28/2024 Patient: Myriam VEGASs Rickie Provider: Wilfrid Blunt :1980 A ge:44 Y S ex:Female Date:10/28/2024 Address:[address] [place], [place] [id number] Pcp:Simon Flores Subjective: * Chief Complaints: * 1 . [facility] To [facility] Conversion Encounter. * Medical History: * Medications: T aking Cyclobenzaprine HCl 10 MG Tablet 1 tab(s) orally 3 times a day prn , Taking Fluticasone Propionate 50 MCG/ACT Suspension 1 spray(s) intranasally once a day , Taking Warfarin Sodium 5 MG Tablet 1 tab(s) orally once a day * Allergies: P CN, Codeine: stomach upset, Demerol: swelling/SOA. Objective: * Vitals: Assessment: Plan: * Treatment: * * Electronic signature of Prov ider Migration on 05/21/2025 at 11:09 AM EDT Sign off status: Pending * Provider: Wilfrid Blunt Date: 0 10/28/2024 Generated for Macho castillo/Uday/Arunitting on: 1 11:09 AM EDT
--- OUTSIDE RECORDS SUMMARY | 2025-05-21 11:09 | XMS_ITS | Clinical Summary ---
Author Organization [facility] Address [address] [place] [address] Care Team Providers Care Concrete Mixer Operator Name Role Phone Simon Flores MD Primary Care Provider [phone] Allergies Active Allergy Reactions Criticality Noted Date [...] 01/18/2008 [facility]-Cervical Cancer Screening 2011 [facility]-HPV/Cotest 2011 DFW-ZOPFS-20 Vaccine (1 - 20 24-25 season) 2025 [...] Insurance [employer] Care Teams Concrete Mixer Operator Relationship Specialty Start Date End Date Simon Flores MD [address] [place] [phone] PCP - General 12/06/20
--- OUTSIDE RECORDS SUMMARY | 2025-05-21 11:09 | XMS_ITS | Patient Health Record ---
Author Organization [facility] Address [address] [facility] [address] [place] [address] Care Team Providers Care Administrative Office Clerk Name Role Phone Simon Flores Primary Care [...] review and pick correct strength-formulat ion from [employer] options. If intended option is not shown, [...] W/U Status Risk Notes Problem Mixed hyperlipidemia (880510338) Mixed hyperlipidemia (E78.2) Active confirmed Problem Allergic rhinitis caused by pollen (disorder) (79218742) Allergic rhinitis due to pollen (J30.1) Active confirmed Problem Intestinal malabsorption (361037568) Intestinal malabsorption, unspecified (K90.9) Active confirmed Problem Obesity (650815902) Obesity (E66.9) Active confirmed Problem Intermenstrual bleeding - irregular (78188748) Menorrhagia with irregular cycle (N92.1) Active confirmed Problem Panic disorder (721533831) Panic attacks (F41.0) Active confirmed Problem Gastroesophageal reflux disease (319276498) GERD without esophagitis (K21.9) Active confirmed Problem Tobacco abuse (6834951390) Tobacco abuse (Z72.0) Active confirmed Problem Body mass index 30.00 to 34.99 (670701211991973) BMI 34.0-34.9,adult (Z68.34) Active confirmed Problem Obese class I (531122072520818) BMI 33.0-33.9,adult (Z68.33) Active confirmed Problem Cigarette smoker (87221564) Cigarette smoker (F17.210) Active confirmed Problem COPD - Chronic obstructive pulmonary disease (53493980) Chronic obstructive pulmonary disease, unspecified COPD type (J44.9) Active confirmed Problem Mixed anxiety and depressive disorder (861771642) Anxiety associated with depression (F41.8) Active confirmed Problem Morbid obesity (132112413) Obesity (BMI 35.0-39.9 without comorbidity) (E66.01) Active confirmed Problem Uncomplicated mild persistent asthma (512937699) Mild persistent asthma without complication (J45.30) Active confirmed Problem Obesity (810644320) Non morbid obesity, unspecified obesity type (E66.9) Active confirmed Problem Tobacco user (985536034) Cigarette nicotine dependence without complication (F17.210) Active confirmed Problem Use of anticoagulation (422173082) Chronic anticoagulation (Z79.01) Active confirmed Problem Sciatica (73234426) Right sided sciatica (M54.31) Active confirmed Problem Essential hypertension (86732397) Essential hypertension with goal blood pressure less than 140\/90 (I10) Active confirmed Problem Type II diabetes mellitus without complication (641001374) Type 2 diabetes mellitus without complication, without long-term current use of insulin (E11.9) Active confirmed Problem Mechanical heart valve prosthesis (189474715) Mechanical heart valve present (Z95.2) Active confirmed Problem Body mass index 35.00 to 39.99 (422572820762693) Adult BMI 36.0-36.9 kg/sq m (Z68.36) Active confirmed Problem History of placement of stent in anterior descending branch of left coronary artery (situation) (626714185) History of placement of stent in LAD coronary artery (Z95.5) Active confirmed Problem Status post karey ce closure of ASD (Z87.74) Active confirmed Problem Coagulopathy (27210475) Coagulopathy (D68.9) Active confirmed Problem Insomnia disorder related to another mental disorder (92918722) Insomnia, psychophysiological (F51.04) Active confirmed Encounters Encounter Location Date Provider Diagnosis [facility] [address] [facility] [address] [place] [address] 10/28/2024 Provider Migration Plan Of Treatment Pending Test Test Name Order Date Physical Therapy 04/13/2016 Occupational Therapy : Eval & Treatment 04/13/2016 H-CBC with AUTO DIFF 12/24/2016 C-CMP 05/09/2018 VENIPUNCT, ROUTINE* 2016 Pulmonary Function Test- Complete 2021 M-Complete Blood Count Auto Diff 021 M-Complete Blood Count Auto Diff 023 M-Complete Blood Count Auto Diff 019 M-INR/PT 08/10/2022 M-INR/PT 04/18/2019 M-INR/PT 11/27/2020 M-Comprehensive Metabolic Panel 11/28/19 21 M-Comprehensive Metabolic Panel 08/10/19 23 M-Comprehensive Metabolic Panel 04/18/20 19 M-Hemoglobin A1C 08/10/2022 M-Lipid Panel 11/27/2020 M-Lipid Panel 08/10/2022 M-Thyroid Stimulating Hormone 11/27/2020 CBC With Platelet And Differential 11/13 Insurance Providers Payer Name Payer Address Payer Phone Subscriber Number Group Number Insured Name Patient Relationship to Insured Coverage Start Date Coverage End Date [employer] [facility] [address] [address] [place] [address] [id number] Debra Carvalho Self - patient is the insured Medical (General) History Medical History History ICD Code Asthma Depression and Anxiety Hypertension Tobacco Abuse Obesity GERD colonoscopy July 2020 wit h multiple tubular [id number] followup recommended Surgical History Surgery Date(Month/Year) cholecystectomy 2009 Tubal Ligation 2010 Total abd hysterectomy 11/2016 valve replacement 06/2018 Hospitalization History Reason Date(Month/Year) above left leg 04/2021
[2025-05-21 11:51] LABS: PHA INR Fingerstick 3.3 (0.9-1.1)
== END 2025-05-21 11:54 ==
LOC: ACC 10:52
PROVIDERS: PCP Nurse Practitioner Family; Visit Provider Physician Assistant
DX: Z79.01 Long term (current) use of anticoagulants (principal); Z95.2 Presence of prosthetic heart valve
CPT/HCPCS: 85610; 99211; G0463

== ENCOUNTER 2025-06-13 10:41 | Day surgery (SDC) | payer OTHER, SELFPAY ==
--- NOTE | 2025-06-08 12:17 | EXP.HP ---
History of Present Illness *Admission Date: 06/13/25 *History of present illness: Mrs. Carvalho is a 45-year-old female who is here for screening/surveillance colonoscopy. The patient did have a colonoscopy in July 2020 and had a pedunculated 18 mm sigmoid colon polyp and a 9 mm rectal polyp which were both adenomatous and were removed. She does have a history of chronic diarrhea and previously had cholecystectomy. The examination is deemed medically necessary for screening/surveillance colonoscopy. The patient has been seen, interviewed and examined prior to the procedure by both myself and the anesthesia provider. [facility] Disclaimer: The information contained in this section may have been updated after the patient was seen, as this information can be updated by other users. Medical History Sleep apnea treated with continuous positive airway pressure (CPAP) Hypothyroid Chest pain PVCs (premature ventricular contractions) PAC (premature atrial contraction) Sinus tachycardia Palpitations DONALD (obstructive sleep apnea) Hypotension Bruising Anemia SOB (shortness of breath) HTN (hypertension) Dizziness SOB (shortness of breath) on exertion Abnormal echocardiogram Tricuspid valve regurgitation Mitral valve regurgitation Surgical History History of hysterectomy H/O mitral valve replacement with mechanical valve Family History Grandmother Coronary artery disease Mother Diabetes Father Diabetes Stroke Grandfather Coronary artery disease Heart attack Stroke Other Family history of cancer Social History Smoking Status: Current every day smoker tobacco type: cigarettes packs per day: 1 second hand exposure: No alcohol intake: never substance use type: denies use current occupational status: employed Travel in the last 8 weeks?: Inside the [place] household members: family and children housing: house 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 current occupational exposures/hazards: No caffeine: Yes Have you lived/traveled outside US in past 30 days?: No Contact w/someone who lives/traveled outside US past 30 days?: No Exposure to someone with infectious disease in past 14 days?: No Do you have a fever (greater than 100.4 F or 38 C)?: No Have you tested positive for COVID-19?: No Exposed to someone with COVID-19 in past 14 days?: No Do you have a sore throat?: No Do you have a cough?: No Do you have any weakness?: No Do you have any diarrhea?: No Are you experiencing any unusual bleeding?: No Do you have any muscle aches/pain?: No Do you have any abdominal pain?: No Are you experiencing loss of taste or smell?: No Other Medical History Have you received the Flu Vaccine for this season: Yes Have you received the Pneumonia Vaccine: No Review of Systems Review of Systems Review of systems (narrative): Negative *Cardiovascular Comments: Negative *Gastrointestinal Comments: Negative *Genitourinary Comments: Negative *Musculoskeletal Comments: Negative *Neurologic Comments: Negative Meds Home Medications and Allergies Home Medications ?Medication ?Instructions ?Recorded ?Confirmed ?Type blood-glucose meter (OneTouch #1 ea 04/21/24 06/13/25 Rx Verio Flex Start kit) blood-glucose meter #1 ea 08/24/24 06/13/25 Rx blood sugar diagnostic (OneTouch #100 strips 09/25/24 06/13/25 Rx Verio test strips) venlafaxine 150 mg See Rx Instructions .Route 12/14/24 06/13/25 Rx capsule,extended release 24 hr .COMPLEX #90 caps varenicline tartrate 1 mg tablet 1 mg PO BID #56 tabs 12/19/24 06/13/25 Rx (Chantix Continuing Month Box) fenofibrate nanocrystallized 145 See Rx Instructions .Route 02/06/25 06/13/25 Rx mg tablet .COMPLEX #90 tabs metoprolol succinate 50 mg 50 mg PO DAILY 90 days #90 tabs 02/20/25 06/13/25 Rx tablet,extended release 24 hr estradiol 1 mg tablet See Rx Instructions .Route 02/28/25 06/13/25 Rx .COMPLEX #30 tabs levothyroxine 25 mcg tablet See Rx Instructions .Route 03/07/25 06/13/25 Rx .COMPLEX #90 tabs blood-glucose meter (OneTouch #1 ea 03/12/25 06/13/25 History Ultra2 Meter) enoxaparin 100 mg/mL subcutaneous 40 mg (0.4 mL) SQ Q12H #10 mL 03/12/25 06/13/25 Rx syringe (Lovenox) doxycycline hyclate 100 mg capsule 100 mg PO BID 10 days #20 caps 04/12/25 06/13/25 Rx hydroxyzine pamoate 25 mg capsule 25 mg PO QIDP PRN Anxiety 30 days 04/12/25 06/13/25 Rx #90 caps lisinopril 10 mg tablet 10 mg PO DAILY #90 tabs 04/12/25 06/13/25 Rx semaglutide 0.25 mg or 0.5 mg (2 0.5 mg (0.736 mL) SQ WEEKLY #3 mL 04/12/25 06/13/25 Rx mg/3 mL) subcutaneous pen injector (Ozempic) warfarin 5 mg tablet 5 mg PO DAILY #30 tabs 04/12/25 06/13/25 Rx omeprazole 20 mg capsule,delayed See Rx Instructions .Route 05/17/25 06/13/25 Rx release .COMPLEX #90 caps fluticasone propionate 50 See Rx Instructions .Route 05/18/25 06/13/25 Rx mcg/actuation nasal .COMPLEX #16 grams spray,suspension potassium chloride 20 mEq See Rx Instructions .Route 05/18/25 06/13/25 Rx tablet,extended release(part/cryst) .COMPLEX #30 tabs trazodone 300 mg tablet 300 mg PO HS #30 tabs 05/18/25 06/13/25 Rx amitriptyline 25 mg tablet 25 mg PO HS #30 tabs 05/23/25 06/13/25 Rx budesonide 160 mcg-glycopyr 9 2 inh inhalation BID #5.9 grams 05/23/25 06/13/25 Rx mcg-formot 4.8 mcg/actuation HFA inhaler (Breztri Aerosphere) empagliflozin 10 mg tablet See Rx Instructions .Route 05/23/25 06/13/25 Rx (Jardiance) .COMPLEX #90 tabs enoxaparin 100 mg/mL subcutaneous 100 mg SQ Q12H #10 mL 05/28/25 06/13/25 Rx syringe (Lovenox) sodium,potassium,mag sulfates 17.5 See Rx Instructions PO .COMPLEX 05/31/25 06/13/25 Rx gram-3.13 gram-1.6 gram oral soln #354 mL (Suprep Bowel Prep Kit) albuterol sulfate 90 mcg/actuation See Rx Instructions .Route 06/12/25 06/13/25 Rx aerosol inhaler .COMPLEX #18 grams peg 3350-electrolytes 236 240 ml PO Q10M colonscopy #4,000 mL 06/12/25 06/13/25 Rx gram-22.74 gram-6.74 gram-5.86 gram solution (Golytely) atorvastatin 20 mg tablet See Rx Instructions .Route 06/13/25 06/13/25 Rx .COMPLEX #90 tabs New Prescriptions to Start Prescriptions: Allergies Allergy/AdvReac Type Severity Reaction Status Date / Time meperidine Allergy Severe S-SWELLS-OR Verified 06/13/25 12:34 AL/THROAT Penicillins Allergy Severe S-SWELLS-OR Verified 06/13/25 12:34 AL/THROAT codeine AdvReac Mild Rash Verified 06/13/25 12:34 Exam *Routine HEENT Exam Head: Present normocephalic Eye: Present EOMI and PERRL ENT: Present mucous membranes moist *Routine Neck Exam Neck: Present supple *Routine Respiratory Exam Respiratory: Present CTA bilaterally *Routine Cardiovascular Exam Cardiovascular: Present RRR *Routine Abdominal Exam Abdominal: Present soft and normoactive bowel sounds; Absent tenderness *Routine Rectal Exam Rectal:: deferred *Routine Genitalia Exam Genitalia:: deferred *Routine Extremities Exam Extremities: Absent cyanosis, clubbing or edema *Routine Skin Exam Skin: Present warm; Absent rash *Routine Neurological Exam Neurological: Present alert and oriented X3 Assessment and Plan *Assessment and plan (1) Personal history of adenomatous and serrated colon polyps: Status: Acute Category: Medical Code(s): Z86.0101 - Personal history of adenomatous and serrated colon polyps (2) Chronic diarrhea: Status: Acute Category: Medical Code(s): K52.9 - Noninfective gastroenteritis and colitis, unspecified Plan A/P: 1. Personal history of adenomatous colon polyps is the preprocedural diagnosis. The patient will be anesthetized/sedated using MAC sedation. The patient has been seen and examined. Cardiac and lung assessment prior to the examination is stable. Proceed with planned screening/surveillance colonoscopy.
[2025-06-12 12:02] VITALS: BMI 38.9
--- NOTE | 2025-06-13 07:00 | P.PCN_ITS ---
[facility] Procedure Note Date: 06/13/25 Time: 14:10 Procedure Note:: Colonoscopy Procedure Report: Colonoscopy with cold snare polypectomy and cold biopsies Endoscopist: Claudio Lowry II, MD Referring physician: MARZENA Blackburn Date of Procedure: June 13, 2025 Equipment: Olympus [id number] adult colonoscope Sedation: MAC sedation Indication: Mrs. Carvalho is a 45-year-old female who is here for screening/surveillance colonoscopy. The patient did have a colonoscopy in July 2020 and had a pedunculated 18 mm sigmoid colon polyp and a 9 mm rectal polyp which were both adenomatous and were removed. She does have a history of chronic diarrhea and previously had cholecystectomy. The patient does get mostly loose and watery stools and reports no formed bowel movements. She never gets constipated. She does have a lot of gassiness, bloating and lower abdominal discomfort and cramps. She reports no rectal bleeding or weight loss. She does state that her paternal aunt had colon cancer in her 70s. The patient is on omeprazole. The examination is deemed medically necessary for screening/surveillance colonoscopy. Procedure: Prior to the procedure, a history and physical exam was performed, and patient's medications and allergies were reviewed. The risks, benefits and alternatives of the sedation and procedure were discussed with the patient. All questions were answered and informed consent was obtained. The patient was brought to the procedure room. Patient identification and proposed procedure were verified by the physician and the nurse. The patient was placed in a left lateral decubitus position and the scope was passed under direct vision. Throughout the procedure, the patient's blood pressure, pulse, and oxygen saturations were monitored continuously. The colonoscopy was accomplished without difficulty. The patient tolerated the procedure well. Findings: On digital rectal examination there was normal rectal tone. There were no external hemorrhoids. The colonoscope was introduced through the anal canal to the rectum and advanced to the cecum. The ileocecal valve and appendiceal orifice were identified. The scope was advanced a short distance into the ileum which appeared grossly normal. The scope was then withdrawn into the colon. There were 4 colon polyps (ascending x 1 (3 mm), transverse x 2 (2 and 3 mm) and descending x 1 (6 to 7 mm)). These were all removed via cold snare polypectomy. Random cold biopsies were taken from the right colon to rule out microscopic colitis. The remaining cecum, ascending, transverse, descending, sigmoid and rectum were grossly normal. There were no mucosal abnormalities identified. Upon retroflexion within the rectum there were grade 1-2 internal hemorrhoids. The preparation was excellent throughout with Mamou Preparation Score of 9. The cecal time was 12 minutes. Impression: 1. Diminutive colonic polyps x 4 Plan: I will follow-up the polyp histology and recommend repeat screening/surveillance colonoscopy again in 5 years. I will follow-up the random biopsies to rule out microscopic colitis. If the biopsies are normal (i.e. IBS diarrhea), I would consider treatment with bulk fiber (FiberCon) and dicyclomine or Viberzi. If biopsies show that she has micr oscopic colitis, I would initiate budesonide. I do feel that there is a component of bile acid diarrhea.
[2025-06-13 12:36] VITALS: BP 124/94; PULSE 75; RESP 17; TEMP 36.4; O2SAT 98
[2025-06-13] MEDS: LACTATED RINGERS 1000ML 1,000 ML 50 ML IV (12:43)
--- NOTE | 2025-06-13 13:00 | EXP.ANES.CKL ---
[facility] Disclaimer: The information contained in this section may have been updated after the patient was seen, as this information can be updated by other users. Medical History Sleep apnea treated with continuous positive airway pressure (CPAP) Hypothyroid Chest pain PVCs (premature ventricular contractions) PAC (premature atrial contraction) Sinus tachycardia Palpitations DONALD (obstructive sleep apnea) Hypotension Bruising Anemia SOB (shortness of breath) HTN (hypertension) Dizziness SOB (shortness of breath) on exertion Abnormal echocardiogram Tricuspid valve regurgitation Mitral valve regurgitation Surgical History History of hysterectomy H/O mitral valve replacement with mechanical valve Family History Grandmother Coronary artery disease Mother Diabetes Father Diabetes Stroke Grandfather Coronary artery disease Heart attack Stroke Other Family history of cancer Social History Smoking Status: Current every day smoker tobacco type: cigarettes packs per day: 1 second hand exposure: No alcohol intake: never substance use type: denies use current occupational status: employed Travel in the last 8 weeks?: Inside the [place] household members: family and children housing: house 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 current occupational exposures/hazards: No caffeine: Yes Have you lived/traveled outside US in past 30 days?: No Contact w/someone who lives/traveled outside US past 30 days?: No Exposure to someone with infectious disease in past 14 days?: No Do you have a fever (greater than 100.4 F or 38 C)?: No Have you tested positive for COVID-19?: No Exposed to someone with COVID-19 in past 14 days?: No Do you have a sore throat?: No Do you have a cough?: No Do you have any weakness?: No Do you have any diarrhea?: No Are you experiencing any unusual bleeding?: No Do you have any muscle aches/pain?: No Do you have any abdominal pain?: No Are you experiencing loss of taste or smell?: No [facility] Anesthesia Checklist Patient Identification Patient Identification: Arm Band and Verbal (Name & ) Structural Data Admitted From: Home Planned Operative Procedure/s: Colonscopy Consent for Planned Operative Procedure(s) Verified: Yes Verified Documents: Surgical Consent NPO Status Verified Time NPO: 00:00 Chart Verification Results Verified: None Additional verifications Anesthesia Reactions: No Hx Blood Transfusions: No Airway Assessment Mallampati Score:: Class II C-Spine Mobility Assessed: Yes TMJ Mobility Assessed: Yes Neurological Assessment Level of Consciousness: Awake, Alert and Appropriate Hx Seizures: No Numbness or tingling in extremities: No Anesthesia Plan Anesthesia Risk discussed: Yes Anesthesia Plan: Verified ASA Class: III Anesthesia Type: MAC
[2025-06-13 14:11] VITALS: BP 95/51; PULSE 82; RESP 16; TEMP 36.4; O2SAT 90
[2025-06-13 14:21] VITALS: BP 107/72; PULSE 80; RESP 16; TEMP 34.4; O2SAT 94
[2025-06-13 14:31] VITALS: BP 117/72; PULSE 81; RESP 16; O2SAT 95
[2025-06-13 14:41] VITALS: BP 122/85; PULSE 81; RESP 16; O2SAT 96
== END 2025-06-13 14:41 | disposition home or self-care (01) ==
PROVIDERS: PCP Nurse Practitioner Family; Visit Provider Internal Medicine Gastroenterology
PROC: 0DJD8ZZ Inspection of Lower Intestinal Tract, Via Natural or Artificial Opening Endoscopic (ICD-10-PCS; CPT 45378; principal; 2025-06-13 14:00)
DX: Z12.11 Encounter for screening for malignant neoplasm of colon (principal); D12.4 Benign neoplasm of descending colon; D12.3 Benign neoplasm of transverse colon; K64.0 First degree hemorrhoids; K64.1 Second degree hemorrhoids; K52.9 Noninfective gastroenteritis and colitis, unspecified; F17.210 Nicotine dependence, cigarettes, uncomplicated; I10 Essential (primary) hypertension; Z88.0 Allergy status to penicillin; Z88.5 Allergy status to narcotic agent; Z79.01 Long term (current) use of anticoagulants; Z88.6 Allergy status to analgesic agent; Z90.710 Acquired absence of both cervix and uterus; Z86.0101 Personal history of adenomatous and serrated colon polyps; Z90.49 Acquired absence of other specified parts of digestive tract
CPT/HCPCS: 45380; 45385; J2003; J2704; J7120

== ENCOUNTER 2025-07-02 13:48 | Outpatient (CLI) | payer OTHER, SELFPAY ==
[2025-07-02 14:29] LABS: Hematocrit 36.9 % (37.0-47.0); Hemoglobin 11.6 g/dL (12.2-16.2); Immature Granulocytes % 0.5 %; Mean Corpuscular HGB Conc 31.4 g/dL (31.8-35.4); Mean Corpuscular Hemoglobin 27.8 pg (27.0-31.2); Mean Corpuscular Volume 88.5 fl (81-99); Nucleated Red Blood Cells % 0 %; Platelet Count 361 K/mm3 (142-424); Red Blood Count 4.17 M/mm3 (4.20-5.40); Red Cell Distribution Width-SD 49.6 fL; White Blood Count 7.6 K/mm3 (4.8-10.8)
[2025-07-02 14:48] LABS: Alanine Aminotransferase 63 U/L (12-78); Albumin Level 4.1 g/dl (3.5-5.0); Alkaline Phosphatase 87 U/L (38-126); Anion Gap 16.6 mEq/L (5-15); Aspartate Amino Transferase 63 U/L (14-36); Bilirubin,Direct 0.3 mg/dl (0.0-0.4); Bilirubin,Indirect 0.1 mg/dL (0.0-0.9); Bilirubin,Total 0.4 mg/dl (0.2-1.3); Bilirubin,Unconjugated 0.2 mg/dL (0.0-1.1); Blood Urea Nitrogen 9 mg/dl (7-17); Calcium 9.2 mg/dl (8.4-10.2); Carbon Dioxide 24 mmol/L (22.0-30.0); Chloride 105 mmol/L (98-107); Cholesterol 114 mg/dl (140-200); Creatinine,Serum 0.90 mg/dl (0.52-1.04); Estimated Glomerular Filt Rate 68 ml/min (>60); GFR (African American) 82 ML/MIN (>60); Glucose 157 mg/dl (74-100); HDL Cholesterol 21 mg/dl (40-60); Magnesium 1.7 mg/dl (1.6-2.3); Potassium 3.6 mmoL/L (3.5-5.1); Sodium 142 mmol/L (136-145); Total Protein,Serum 7.6 g/dl (6.3-8.2); Triglycerides 341 mg/dl (30-150)
[2025-07-02 15:01] LABS: Free T4 (Free Thyroxine) 0.99 ng/dl (0.78-2.19)
[2025-07-02 15:19] LABS: Thyroid Stimulating Hormone 3.12 uIU/mL (0.465-4.68)
[2025-07-02 15:44] LABS: Hemoglobin A1C 6.3 % (4.0-6.0)
== END 2025-07-02 23:59 | disposition home or self-care (01) ==
LOC: LAB 13:49
PROVIDERS: PCP Nurse Practitioner Family; Visit Provider Internal Medicine
DX: E78.5 Hyperlipidemia, unspecified (principal); I10 Essential (primary) hypertension; E11.9 Type 2 diabetes mellitus without complications; E03.9 Hypothyroidism, unspecified
CPT/HCPCS: 36415; 80048; 80061; 80076; 83036; 83735; 84439; 84443; 85025